=== PATIENT | female | born 1945 | race Caucasian/White ===

== ENCOUNTER → 2017-04-26 | Day surgery (SDC) | payer OTHER ==
[2017-04-21 08:59] VITALS: Ht 161.3 cm; Wt 85.0 kg
[~2017-04-26] VITALS: Ht 161.3 cm; Wt 85.0 kg
[~2017-04-26] MED LIST: 500ML BSS 0.3ML EPI 1:1000PF IRRIG ONE; ACETAMINOPHEN 325 MG TAB PO PRN; AMIT25TA9 PO; AMVISC PLUS 0.8ML SYRINGE INT OCU ONE; ATOR-24 PO; BRIMONIDINE TART 0.2% OP SOLN PER DROP CHARGE ONE; BSS FLUSH ONE; BUPR-79 PO; CLB/200 PO; ENDOCOAT 0.85ML SYRINGE INT OCU ONE; EpINEphrine INJ 1MG/ML AMP 1 MG/ML AMP ONE; LACTATED RINGER'S 1000ML 500 ML IV SCH; LIDOCAINE 4% OP SOLN DROP CHARGE ONE; LIDOCAINE 4% OP SOLN DROP CHARGE OPL SCH; LIDOCAINE HCL 1% MPF 2 ML VIAL ONE; LISI10TA PO; MIDAZOLAM HCL 1 MG/ML 2ML VIAL ONE; MIX: 3ML BSS AND 1ML EPI(PF) TOP ONE; MOXIFLOXACIN OPH SOLN PER DROP CHARGE ONE; MULT-506 PO; PANT40TA PO; POVIDONE-IODINE OP SOLN 30 ML BTL ONE; PROPARACAINE 0.5% OP SOLN PER DROP CHARGE OPL SCH; TOBRAMYCIN/DEXAMETHASONE OPH OINT PER APPLN CHARGE ONE; TRAM-10 PO
[2017-04-26] MEDS: PHENYLEPHRINE HCL 2.5% OP SOLN PER DROP CHARGE OPL SCH ×2 (10:43→10:47)
[2017-04-26] MEDS: TROPICAMIDE 1% OP SOLN PER DROP CHARGE OPL SCH ×2 (10:44→10:49)
[2017-04-26] MEDS: KETOROLAC 0.5% OP SOLN PER DROP CHARGE OPL SCH ×2 (10:45→10:50)
[2017-04-26] MEDS: CYCLOPENTOLATE HCL 1% OP SOLN PER DROP CHARGE OPL SCH ×2 (10:45→10:50)
[2017-04-26] MEDS: MOXIFLOXACIN OPH SOLN PER DROP CHARGE OPL SCH ×2 (10:46→10:51)
--- NOTE | 2017-04-26 11:50 | History & Physical Bridge - SC ---
H&P Re-Evaluation Bridge Note: I have examined the patient, reviewed the History & Physical and in the interval since the performance of the History & Physical I have noted the following changes of clinical significance: No changes noted
--- NOTE | 2017-04-26 12:13 | Discharge Instructions-SurgCtr ---
Discharge Instructions Date of Service Apr 26, 2017. Visit Reason for Visit: Cataract Left Eye Discharge Discharge Diagnosis / Problem: cataract left eye Discharge Goals Goal(s): Improve function Activity Recommendations Activity Limitations: per Instructions/Follow-up section Lifting Limitations: no more than 5 pounds Anesthesia . Post Anesthesia Instructions: If you have had General Anesthesia or IV Sedation: * Do not drive today. * Resume driving when surgeon permits. * Do not make important decisions or sign legal documents today. * Call surgeon for: 1. Temperature elevations greater than 101 degrees F. 2. Uncontrollable pain. 3. Excessive bleeding. 4. Persistent nausea and vomiting. 5. Medication intolerance (nausea, vomiting or rash). * For nausea and vomiting use only clear liquids such as: tea, soda, bouillon until nausea subsides, then gradually increase diet as tolerated. * If you have any concerns or questions, call your surgeon's office. If physician is unavailable and it is an emergency, call 911 or go to the nearest emergency room. . Instructions / Follow-Up Instructions / Follow-Up ACTIVITY RECOMMENDATIONS: * Light activities * You may walk outside, read, watch television. * Mild irritation and blurred vision are common for the first few days, redness around the white part of the eye is common. MEDICATIONS: Resume previous medications unless instructed otherwise by your surgeon. Eye drops (today and tomorrow): Moxifloxacin - one drop in operative eye every 2 hours while awake Prednisolone 1% - one drop in operative eye every 2 hours while awake Ilevro - one drop operative eye 1 times daily SPECIAL CARE INSTRUCTIONS: * If any problems or concerns, please call Dr. Mckeon's office at . * Keep plastic shield taped over eye to sleep at night. * Keep plastic shield taped over eye except to administer eye drops. * Keep plastic shield on until office visit the following day. FOLLOW UP VISIT: Follow-up with Dr. Mckeon in the [place] office as scheduled. If not already scheduled, please call the office at . Diet Recommendations Home Diet: resume previous diet Procedures Procedures Performed: Left Cataract Phacoemulsification With Intraocular Lens Implant Pending Studies Studies pending at discharge: no Medical Emergencies . Who to Call and When: Medical Emergencies: If at any time you feel your situation is an emergency, please call 911 immediately. . Non-Emergent Contact Non-Emergency issues call your: [facility] [employer] . . "Provider Documentation" section prepared by Sergo Mckeon. .
[2017-04-26 12:15] VITALS: TEMP 36.6
--- NOTE | 2017-04-26 12:15 | [facility] Operative Report ---
Operative Report Operative Date Apr 26, 2017. Pre-Operative Diagnosis Cataract left eye Post-Operative Diagnosis Same as pre-op Procedure(s) Performed Left Cataract Phacoemulsification With Intraocular Lens Implant Surgeon Tapeman Surgeon(s) None Estimated Blood Loss Zero Findings cataract left eye Fluids (cc crystalloids) see anesthesia record Specimens None Drains none Anesthesia local with sedation Complication(s) None Disposition Recovery Room / PACU Implants [id number] 24.0 Indications decreased vision left eye Description of Procedure After informed consent was obtained in the holding area the patient was wheeled back to the operating room where cardiac monitoring leads and oxygen by nasal cannula was administered by Anesthesia. Gentle IV sedation was given, and the patient's left eye was prepped and draped in usual sterile fashion. A wire lid speculum was placed into the left eye and the operating microscope was swung into position. Using 0.12 forceps and a Supersharp blade a paracentesis port was made 2 o'clock hours away from the 3 o'clock position of the patient's left eye. 1% non-preserved Lidocaine was then injected into the anterior chamber for anesthesia. A mixture of 1ml nonpreserved epi in 3 ml of BSS was injected to aid with pupillary dilation. A 2.0 mm keratotome blade was then used to make a shelved clear corneal incision at the 3 o'clock position of the left eye. Amvisc was injected into the anterior chamber and a cystotome and Utrata forceps were used to perform a curvilinear capsulorrhexis. BSS on a hydrodissection cannula was used to hydrodissect the lens nucleus away from the capsular bag. The phacoemulsification handpiece was then used in a stop and chop fashion to remove the lens nucleus. The irrigation and aspiration handpiece was then used to remove the residual cortical material. Amvisc was injected into the capsular bag and anterior chamber and a [employer] MX60 24.0 Diopter intraocular lens was injected into the capsular bag. Irrigation and aspiration handpiece was used to remove the residual viscoelastic material. The wounds were hydrated and noted to be watertight. The wire lid speculum was removed from the eye. Vigamox, Brimonidine, and TobraDex ointment were placed on the eye and it was shielded. It should be noted that EndoCoat was used extensively during the case to protect the cornea endothelium. DISPOSITION: The patient tolerated the procedure well and was wheeled to the post anesthesia care unit in stable condition. I attest to the content of the Intraoperative Record and any orders documented therein. Any exceptions are noted below. I attest to the content of the Intraoperative Record and any orders documented therein. Any exceptions are noted below.
--- NOTE | 2017-04-26 12:33 | Anesthesia Progress Nt - [facility] ---
Anesthesia Post Op Note Date & Time Apr 26, 2017 at 12:33 Vital Signs Pain Intensity: 0 Vital Signs Past 12 Hours Date Time Temp Pulse Resp B/P (MAP) Pulse Ox O2 Delivery O2 Flow Rate FiO2 04/26/17 12:15 36.6 78 16 159/81 (107) 98 Room Air 04/26/17 10:38 36.5 80 22 145/91 (109) 96 Room Air Notes Mental Status: alert / awake / arousable, participated in evaluation Pt Amnestic to Procedure: Yes Nausea / Vomiting: adequately controlled Pain: adequately controlled Airway Patency, RR, SpO2: stable & adequate BP & HR: stable & adequate Hydration State: stable & adequate Anesthetic Complications: no major complications apparent
[2017-04-26 12:37] VITALS: BP 135/79; PULSE 71; O2SAT 95
== END | disposition home or self-care (01) ==
LOC: X.SURG 10:31
PROVIDERS: ATTEND Ophthalmology
DX: H25.12 Age-related nuclear cataract, left eye (principal); I10 Essential (primary) hypertension; L40.9 Psoriasis, unspecified; E07.9 Disorder of thyroid, unspecified

== ENCOUNTER 2020-08-08 04:19 | Inpatient (IN) ==
--- OUTSIDE RECORDS SUMMARY | 2020-08-08 04:22 | External Medical Summary | Continuity of Care Document ---
:1945 Author Name Indu Butts, Provider Address Unavailable Unavailable , Care Team Providers Name Role Phone Raz [email or web address] [email or web address] Unavailable Unavailable Unavailable Unavailable Unavailable Problems Psoriasis (696.1) (L40.9) Nonalcoholic fatty liver disease (571.8) (K76.0) Actinic keratosis (702.0) (L57.0) Plantar fasciitis (728.71) (M72.2) Arthritis (716.90) (M19.90) Allergies and Adverse Reactions No Known Allergies (Allergy) Medications Simvastatin 40 MG Oral Tablet Refills: 0 Metoprolol Tartrate 25 MG Oral Tablet Refills: 0 Pantoprazole Sodium 40 MG Intravenous Solution Reconstituted Refills: 0 Flonase 50 MCG/ACT SUSP Refills: 0 Aspirin 81 81 MG Oral Tablet Delayed Release Refills: 0 buPROPion HCl ER (SR) 150 MG Oral Tablet Extended Release 12 Hour Refills: 0 CeleBREX 200 MG Oral Capsule; TAKE 1 CAPSULE DAILY. Refills: 0 Lisinopril 5 MG Oral Tablet; TAKE 1 TABLET DAILY. Refills: 0 Clobetasol Propionate 0.05 % External So lution; APPLY AND GENTLY MASSAGE INTO AFFECTED AREA(S) TWICE DAILY. Beckie Mackay Start: 26-Feb-2014 Quantity: 1 50 ML Bottle Refills: 2 Procedures Procedures not documented Immunizations Immunizations not documented Plan of Treatment Planned Observations Planned Goals not documented Results No Known Results Results not documented
[2020-08-08 04:58] LABS: Basophils # (auto) 0.03 K/uL (0-0.2); Basophils % (auto) 0.4 %; Eosinophils # (auto) 0.27 K/uL (0-0.5); Eosinophils % (auto) 3.7 %; Hematocrit (blood only) 37.1 % (37-47); Hemoglobin 12.9 g/dL (12.0-16.0); Immature Granulocytes # (auto) 0.01 K/uL (0.00-0.02); Immature Granulocytes % (auto) 0.1 %; Lymphocytes # (auto) 1.64 K/uL (1.2-3.4); Lymphocytes % (auto) 22.7 %; Mean Corpuscular Hemoglobin 32.7 pg (25-34); Mean Corpuscular Hgb Conc 34.8 g/dL (32-36); Mean Corpuscular Volume 93.9 fL (80-100); Mean Platelet Volume 10.5 fL (7.4-10.4); Monocytes # (auto) 0.87 K/uL (0.11-0.59); Monocytes % (auto) 12.1 %; Neutrophils # (auto) 4.39 K/uL (1.4-6.5); Platelet Count 145 K/uL (130-400); RDW Coefficient of Variation 13.4 % (11.5-14.5); RDW Standard Deviation 46.3 fL (36.4-46.3); Red Blood Count 3.95 M/uL (4.2-5.4); White Blood Count 7.21 K/uL (4.8-10.8)
[2020-08-08 05:11] LABS: Alanine Aminotransferase 39 U/L (12-78); Albumin Level 3.6 gm/dl (3.4-5.0); Aspartate Aminotransferase 33 U/L (15-37); BUN Creatinine Ratio 19.1 (10-20); Blood Urea Nitrogen 20 mg/dl (7-18); Calcium 8.8 mg/dl (8.5-10.1); Carbon Dioxide 29 mmol/L (21-32); Chloride 106 mmol/L (98-107); Creatinine Clr Calc Pharmacy 47.2 ml/min; Est GFR (African American) 58.4; Est GFR (Non-African American) 50.4; Glucose 141 mg/dl (70-99); Lipase 174 U/L (73-393); Sodium 140 mmol/L (136-145)
[2020-08-08 05:16] LABS: Albumin Globulin Ratio 0.9 (0.9-2); Alkaline Phosphatase 85 U/L (45-117); Bilirubin,Total 0.6 mg/dl (0.2-1); Globulin 4.2 gm/dl (2.5-4.0); Total Protein 7.8 gm/dl (6.4-8.2); Troponin I < 0.015 ng/ml (0-0.045)
--- NOTE | 2020-08-08 05:17 | Emergency Department Note ---
Impression & Plan Partial small bowel obstruction ED Provider Note NAME: DANILO CHAVIRA AGE: 74 SEX: F ARRIVES VIA: Ambulance INFORMANT: Patient ED PROVIDER(S): Nasrin Green DO CHIEF COMPLAINT: Epigastric pain PLAN: Disposition: Admitted to the [facility] Condition: Stable MEDICAL DECISION MAKING: This is a 74-year-old female patient with epigastric pain that woke her from sleep at 1:30 AM. Patient received IV morphine and Zofran from EMS with significant relief of her symptoms. CT scan of the abdomen/pelvis shows partial small bowel obstruction. The patient received additional morphine and Zofran here in the emergency department which helped with her symptoms. [facility]. Triage Nursing notes reviewed and agree with them. Additional history obtained from EMS Prior medical records reviewed Vital Signs: reviewed and remarkable for hypertension Differential diagnosis: Pancreatitis, small bowel obstruction, diverticulitis, colitis, renal colic ER treatment provided: IV normal saline IV morphine IV Zofran Diagnostics interpreted by me: ECG: Normal sinus rhythm at a rate of 76 with T wave inversions in lead I and aVL. There is no ST segment elevation or signs of ischemia. This is unchanged from June 2015 Cardiac Monitoring: Normal sinus rhythm at 77 Laboratory studies: See below Imaging studies: As per stat rad CT scan abdomen/pelvis: 7 mm left lower lobe nodule is seen. Cholecystectomy. Mildly dilated small bowel loops seen in the pelvis, suggestive of a partial dis madison small bowel obstruction with transition point in the right pelvis. Fatty liver. Small hiatal hernia. L3/4 grade 1 spondylolisthesis. HPI: 74/F arrives for evaluation of epigastric abdominal pain. The patient awoke at 1:30 AM with significant epigastric abdominal pain that radiated through to her mid back and lower abdomen. Patient rated the pain as an 8/10 and called EMS. EMS administered 4 mg of morphine and 4 mg of Zofran which did give her some relief of the abdominal discomfort and nausea that she was experi encing. Patient states that she has never had pain like this in the past. She states that the pain was so severe that she became clammy and near syncopal. Patient denies any diarrhea. ROS: See above HPI for pertinent positives & negatives. A total of 10 systems reviewed and were otherwise negative. PAST MEDICAL HISTORY:Hypertension PAST SURGICAL HISTORY:Cholecystectomy, hysterectomy, surgical removal of the umbilicus FAMILY HISTORY:See Below SOCIAL HISTORY:See Below HOME MEDICATIONS:See Below ALLERGIES:See Below VITALS:See Below PHYSICAL EXAMINATION: HEENT: Head - normocephalic and atraumatic Pupils are equal, round, and reactive to light. Extraocular eye muscles are intact, and sclera are anicteric. Nose - moist nasal mucosa without discharge. Mouth - moist buccal mucosa. Oropharynx is nonerythematous and there is no tonsillar exudate or mirtha ma noted. Neck: Supple; no cervical lymphadenopathy or thyromegaly Heart: Regular rate and rhythm. There is a normal S1 and S2 with no murmurs, clicks, or gallops appreciated. Lungs: Clear to auscultation bilaterally with no wheezes, rales, or rhonchi. Abdomen: Soft, diffusely tender with palpation. There is a fullness in the left lower quadrant of the abdomen. There is hyperactive bowel sounds. Extremities: No evidence of cyanosis, clubbing, or edema. There are easily palpable peripheral pulses. Skin: warm and dry with good turgor and no rashes. ED COURSE: Times/Reassessments: 0435: Patient was evaluated in room C10. A complete history and physical was performed. Previous electronic medical records were reviewed. An order was placed for continuous cardiac monitoring. The patient was in a normal sinus rhythm at a rate of 77. An IV lock was initiated and labs were drawn as above. Patient will go for CT scan of the abdomen/pelvis. [id number]: I reevaluated the patient at this time. She was having increased pain. She was given an additional dose of IV morphine and IV Zofran for pain. I reviewed the results of the laboratory studies and CT scan with the patient. I discussed the case with the [facility] hospitalist and they will evaluate for further inpatient care. 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 Beliefs That Will Affect Care: None Current Living Situation: Spouse Other Information That Helps Us Care for You: No Feels Safe at Home: Yes Safety Concerns: Feels Safe At This Time Assistive Devices: Cane, Glasses and Walker Allergies Allergies Allergy/AdvReac Type Severity Reaction Status Date / Time indomethacin Allergy Mild rash Verified 08/08/20 05:26 meclizine Allergy Mild RASH Verified 08/08/20 05:26 naproxen Allergy Mild RASH Verified 08/08/20 05:26 Penicillins AdvReac Mild RASH Verified 08/08/20 05:26 Home Meds Home Medications Medication Instructions Recorded Confirmed adalimumab [Humira Pen] 40 mg SUBCUT .Q2WK 08/08/20 08/08/20 amitriptyline 25 mg PO HS 08/08/20 08/08/20 atorvastatin 80 mg PO QPM 08/08/20 08/08/20 bupropion HCl 150 mg PO BID 08/08/20 08/08/20 lisinopril 20 mg PO QAM 08/08/20 08/08/20 multivitamin 1 tab PO QAM 08/08/20 08/08/20 pantoprazole 40 mg PO BID 08/08/20 08/08/20 pramipexole 0.5 mg PO HS 08/08/20 08/08/20 tizanidine 4 mg PO DIRECTED PRN 08/08/20 08/08/20 tramadol 50 mg PO BID 08/08/20 08/08/20 Results & Data (ED) Vital Signs Vital Signs - 24 hr 08/08/20 04:22 08/08/20 04:25 08/08/20 04:27 Temperature 36.8 C Temperature Source Oral Pulse Rate 78 77 77 Pulse Rate [Right Finger] Pulse Rate from SpO2 Sensor 79 77 Respiratory Rate 18 20 16 Respiratory Depth Normal Blood Pressure 157/71 H 157/71 H Blood Pressure [Right Arm] Blood Pressure Mean 99 99 Blood Pressure Mean [Right Arm] Blood Pressure Position Sitting Blood Pressure Position [Right Arm] Pulse Oximetry 94 94 95 Oxygen Delivery Method Room Air Sepsis Recent Fever Within 48 Hours No Sepsis New/Unexplained Change in Mental Status No Sepsis Action Taken by Nursing No Action Required 08/08/20 04:30 08/08/20 04:31 08/08/20 04:55 Temperature Temperature Source Pulse Rate 77 78 Pulse Rate [Right Finger] Pulse Rate from SpO2 Sensor 75 77 Respiratory Rate 18 18 Respiratory Depth Blood Pressure 147/75 H Blood Pressure [Right Arm] Blood Pressure Mean 99 Blood Pressure Mean [Right Arm] Blood Pressure Position Blood Pressure Position [Right Arm] Pulse Oximetry 90 90 95 Oxygen Delivery Method Room Air Sepsis Recent Fever Within 48 Hours Sepsis New/Unexplained Change in Mental Status Sepsis Action Taken by Nursing 08/08/20 05:00 08/08/20 05:01 08/08/20 05:30 Temperature Temperature Source Pulse Rate 79 79 76 Pulse Rate [Right Finger] Pulse Rate from SpO2 Sensor 72 77 76 Respiratory Rate 18 19 20 Respiratory Depth Blood Pressure 151/79 H Blood Pressure [Right Arm] Blood Pressure Mean 103 Blood Pressure Mean [Right Arm] Blood Pressure Position Blood Pressure Position [Right Arm] Pulse Oximetry 93 90 93 Oxygen Delivery Method Sepsis Recent Fever Within 48 Hours Sepsis New/Unexplained Change in Mental Status Sepsis Action Taken by Nursing 08/08/20 05:34 08/08/20 05:49 08/08/20 06:00 Temperature Temperature Source Pulse Rate 79 82 Pulse Rate [Right Finger] 82 Pulse Rate from SpO2 Sensor 80 82 Respiratory Rate 17 16 16 Respiratory Depth Normal Blood Pressure 145/73 H 144/64 H Blood Pressure [Right Arm] 132/75 Blood Pressure Mean 97 90 Blood Pressure Mean [Right Arm] 94 Blood Pressure Position Blood Pressure Position [Right Arm] Lying Pulse Oximetry 93 94 91 Oxygen Delivery Method Room Air Sepsis Recent Fever Within 48 Hours Sepsis New/Unexplained Change in Mental Status Sepsis Action Taken by Nursing 08/08/20 06:01 08/08/20 06:30 08/08/20 06:31 Temperature Temperature Source Pulse Rate 83 76 79 Pulse Rate [Right Finger] Pulse Rate from SpO2 Sensor 83 76 72 Respiratory Rate 15 15 15 Respiratory Depth Blood Pressure 152/70 H Blood Pressure [Right Arm] Blood Pressure Mean 97 Blood Pressure Mean [Right Arm] Blood Pressure Position Blood Pressure Position [Right Arm] Pulse Oximetry 92 92 91 Oxygen Delivery Method Sepsis Recent Fever Within 48 Hours Sepsis New/Unexplained Change in Mental Status Sepsis Action Taken by Nursing Laboratory Data Result diagrams: 08/08/20 03:52 08/08/20 03:52 Lab Results 08/08/20 08/08/20 Range/Units 03:52 03:52 WBC 7.21 (4.8-10.8) K/uL RBC 3.95 L (4.2-5.4) M/uL Hgb 12.9 (12.0-16.0) g/dL Hct 37.1 (37-47) % MCV 93.9 (80-100) fL MCH 32.7 (25-34) pg MCHC 34.8 (32-36) g/dL RDW Std Deviation 46.3 (36.4-46.3) fL RDW Coeff of Luzma 13.4 (11.5-14.5) % Plt Count 145 (130-400) K/uL MPV 10.5 H (7.4-10.4) fL Immature Gran % (Auto) 0.1 % Neut % (Auto) 61.0 % Lymph % (Auto) 22.7 % Power % (Auto) 12.1 % Eos % (Auto) 3.7 % Baso % (Auto) 0.4 % Neut # (Auto) 4.39 (1.4-6.5) K/uL Lymph # (Auto) 1.64 (1.2-3.4) K/uL Power # (Auto) 0.87 H (0.11-0.59) K/uL Eos # (Auto) 0.27 (0-0.5) K/uL Baso # (Auto) 0.03 (0-0.2) K/uL Immature Gran # (Auto) 0.01 (0.00-0.02) K/uL Sodium 140 (136-145) mmol/L Potassium 4.0 (3.5-5.1) mmol/L Chloride 106 (98-107) mmol/L Carbon Dioxide 29 (21-32) mmol/L Anion Gap 5.0 (3-11) BUN 20 H (7-18) mg/dl Creatinine 1.07 (0.6-1.2) mg/dl Est Cr Clr Drug Dosing 47.2 ml/min Est GFR ( Amer) 58.4 Est GFR (Non-Af Amer) 50.4 BUN/Creatinine Ratio 19.1 (10-20) Glucose 141 H (70-99) mg/dl Calcium 8.8 (8.5-10.1) mg/dl Total Bilirubin 0.6 (0.2-1) mg/dl AST 33 (15-37) U/L ALT 39 (12-78) U/L Alkaline Phosphatase 85 (45-117) U/L Troponin I < 0.015 (0-0.045) ng/ml Total Protein 7.8 (6.4-8.2) gm/dl Albumin 3.6 (3.4-5.0) gm/dl Globulin 4.2 H (2.5-4.0) gm/dl Albumin/Globulin Ratio 0.9 (0.9-2) Lipase 174 (73-393) U/L Administered Medications Bupropion HCl (Bupropion Sr 150 Mg Tabcr) 150 mg PO BID ESTEPHANIE Stop: 09/07/20 10:16 Last Admin: 08/08/20 11:46 Dose: 150 mg Documented by: [id number] Hydromorphone HCl (Hydromorphone Inj 0.5 Mg/0.5 Ml Syr) 0.5 mg IV Q3H PRN PRN Reason: Pain Stop: 08/22/20 10:16 Last Admin: 08/08/20 18:26 Dose: 0.5 mg Documented by: [id number] Admin: 08/08/20 12:42 Dose: 0.5 mg Documented by: [id number] Dextrose/Sodium Chloride (D5w And Nss) 1,000 mls @ 125 mls/hr IV .Q8H ESTEPHANIE Stop: 09/07/20 10:16 Last Admin: 08/08/20 11:44 Dose: 125 mls/hr Documented by: [id number] Insulin Aspart (Insulin Aspart 100 Units/Ml 3 Ml Pen) 0 units SC Q6 ESTEPHANIE Stop: 09/07/20 11:59 Last Admin: 08/08/20 18:37 Dose: Not Given Documented by: [id number] Cosigned by: [id number] Admin: 08/08/20 13:07 Dose: Not Given Documented by: [id number] Cosigned by: [id number] Lisinopril (Lisinopril 20 Mg Tab) 20 mg PO QAM ESTEPHANIE Stop: 09/07/20 10:16 Last Admin: 08/08/20 11:45 Dose: 20 mg Documented by: [id number] Pantoprazole Sodium (Pantoprazole 40 Mg Tab) 40 mg PO BID ESTEPHANIE Stop: 09/07/20 10:16 Last Admin: 08/08/20 11:46 Dose: 40 mg Documented by: [id number] Tramadol HCl (Tramadol Hcl 50 Mg Tablet) 50 mg PO BID ESTEPHANIE Stop: 09/07/20 10:16 Last Admin: 08/08/20 11:46 Dose: 50 mg Documented by: [id number] Discontinued Medications Hydromorphone HCl (Hydromorphone Inj 0.5 Mg/0.5 Ml Syr) Confirm Administered Dose 0.5 mg .ROUTE .STK-MED ONE Stop: 08/08/20 08:29 Last Admin: 08/08/20 08:29 Dose: 0.5 mg Documented by: [id number] Sodium Chloride (Nss) 500 mls @ 999 mls/hr IV .Q31M ONE Stop: 08/08/20 05:53 Last Infusion: 08/08/20 06:43 Dose: 0 mls/hr Documented by: [id number] Admin: 08/08/20 05:49 Dose: 999 mls/hr Documented by: [id number] Ioversol (Ioversol 100ml) 100 ml IV ONCE ONE Stop: 08/08/20 05:50 Last Admin: 08/08/20 05:49 Dose: 93 ml Documented by: [id number] Morphine Sulfate (Morphine Sulfate 4 Mg/Ml 1 Ml Carp\Vial) 4 mg IV NOW STA Stop: 08/08/20 05:22 Last Admin: 08/08/20 05:33 Dose: 4 mg Documented by: [id number] Discharge Plan Visit Data Chief Complaint: Abdominal Pain Stated Complaint: EPIGASTRIC PAIN ED Provider: Nasrin Green Discharge Problem: Partial small bowel obstruction Patient Disposition: Admitted As Inpatient Discharge Instructions Interventions: ED Discharge Assessment Last Done: 08/08/20 09:59
[2020-08-08] MEDS ORDERED: MoRPHine SULFATE 4 MG/ML 1 ML CARP\\VIAL IV STA (05:21)
[2020-08-08] MEDS ORDERED: SODIUM CHLORIDE 0.9% 500 ML IV ONE (05:23)
[2020-08-08] MEDS ORDERED: OPTIRAY 320 100ml IV ONE (05:49)
--- NOTE | 2020-08-08 06:45 | CT Scan Report ---
CT OF THE ABDOMEN AND PELVIS WITH CONTRAST CLINICAL HISTORY: Abdominal pain. Evaluate for small bowel obstruction vs. diverticulitis. COMPARISON STUDY: CT of the abdomen and pelvis April 14, 2016. TECHNIQUE: Following IV administration of 93 mL of Optiray-320, axial images of the abdomen and pelvi s were obtained from the lung bases to the proximal femurs. Images were reviewed in the axial, sagitt al, and coronal planes. IV contrast was administered without complication. Automated exposure contro l was utilized for the study. A dose lowering technique was utilized adhering to the principles of A EMIR. CT DOSE: 787.70 mGy.cm FINDINGS: Several pulmonary nodules within the lower lungs are unchanged and CT of April 14, 2016. These are benign given stability. There is a small hiatal hernia. Hepatic steatosis is noted. Mild b iliary ductal dilatation is likely related to cholecystectomy. There are no hepatic lesions. The sple en, adrenal glands are unremarkable. There is no pancreatic ductal dilatation. A 7 mm cystic lesion w ithin the pancreatic tail favors a side branch IPMN. Bilateral renal parapelvic cysts are noted. A 2 cm lesion within the lower pole the right kidney measures above water attenuation. When correlating w ith prior unenhanced CT of April 14, 2016, this likely reflects a hyperdense cyst. The appendix is not visualized. There are several loops of mildly dilated fluid-filled small bowel within the abdome n. Transition point within the right lower quadrant is noted on image 323 of 481. Distal small bowel is decompressed. There is minimal associated mesenteric infiltration. Left hip arthroplasty is noted. No abdominal or pelvic lymphadenopathy is present. No acute fracture or suspicious lesion is identif ied within visualized skeletal structures. There is extensive aortic atherosclerotic plaque. No pneum atosis, free air or portal venous gas is present. IMPRESSION: 1. Multiple loops of mildly dilated small bowel with transition point within the right lower quadrant . The findings represent a partial small bowel obstruction. Minimal associated mesenteric infiltratio n. 2. Multiple additional findings, as described above. ACT 112: Negative or not required by law. Electronically signed by: Moses Hinton M.D. 08/08/2020 6:44 AM
[2020-08-08 07:06] LABS: Appearance Urine Cloudy (Clear); Bacteria Urine Automated Negative (Negative); Bilirubin Urine Negative (Negative); Blood Urine Negative (Negative); Color Urine Yellow; Epithelial Cell Urine Auto >30 /lpf (0-5); Glucose Urine UA Negative (Negative); Ketones Urine Negative (Negative); Leukocyte Esterase Urine 2+ (Negative); Nitrite Urine Negative (Negative); Protein Urine Negative (Negative); RBC Urine Automated 0-4 /hpf (0-4); Specific Gravity Urine > 1.045 (1.000-1.030); Urobilinogen Urine Negative (Negative); WBC Urine Automated >30 /hpf (0-5)
--- NOTE | 2020-08-08 08:19 | History and Physical Report ---
DATE OF ADMISSION: 08/08/2020 CHIEF COMPLAINT: Abdominal pain. HISTORY OF PRESENT ILLNESS: This is a 74-year-old female with past medical history significant for hyperlipidemia, chronic gout, prediabetes, seasonal allergies, obstructive sleep apnea, hypertension, fibromyalgia, restless legs syndrome, psoriasis, psoriatic arthropathy, history of peptic ulcer, history of Manzo's esophagus, depression, who presents from home with abdominal pain. The patient woke up around 1:30 a.m. with abdominal pain about 8/10 in severity, pain in the epigastric area radiating to the lower abdomen. No nausea, no vomiting. Last bowel movement was last Wednesday. Not passing much gas. Denies any chest pain, no shortness of breath. Has chronic dry cough, chronic runny nose. No sore throat, no dysphagia, no headache, no blurred vision, no fevers. She has complaints of pain in her left knee. She had left total knee arthroplasty done about 6 months ago and she also has pain in the right knee and supposed to get surgery in that knee and she ambulates with a cane at home. Still complaining of abdominal pain about 6/10 in severity. No bowel obstructions in the past, had abdominal surgeries in the past. ALLERGIES: AMOXICILLIN, NAPROXEN, RANITIDINE. PAST MEDICAL HISTORY: As mentioned above. PAST SURGICAL HISTORY: Left total knee arthroplasty, left breast lesion excision, carpal tunnel surgery, colonoscopy, EGD with biopsy, external hemorrhoidectomy, bilateral knee arthroscopy, laparoscopic cholecystectomy, bone removed from the left wrist, complete hysterectomy, cataract surgery, tonsillectomy and adenoidectomy, right shoulder arthroscopy. MEDICATIONS: The patient is on Humira every 2 weeks, amitriptyline 25 mg p.o. at bedtime, atorvastatin 80 mg p.o. p.m., bupropion 150 mg p.o. b.i.d., lisinopril 20 mg p.o. a.m., multivitamins 1 tablet p.o. a.m., Protonix 40 mg p.o. b.i.d., pramipexole 0.5 mg p.o. at bedtime, Zanaflex 4 mg p.r.n., tramadol 50 mg p.o. b.i.d. FAMILY HISTORY: Significant for mother has cancer, father has heart disease, brother has Parkinson's, son has ulcerative colitis and anxiety disorder, sister has diabetes, gout, arthritis, heart disease. SOCIAL HISTORY: . No smoking, no alcohol, no drug use. REVIEW OF SYSTEMS: As per HPI. Rest of the review of systems negative. PHYSICAL EXAMINATION: GENERAL: The patient is of moderate built, not in acute distress. VITAL SIGNS: Temperature 36.8, pulse 82, respiratory rate 16, blood pressure 132/75, oxygen 94% on room air. HEENT: Pupils equal, round, and reactive to light. Oral mucosa dry. NECK: No JVD, no neck masses seen. CARDIOVASCULAR: S1, S2 heard, regular rate and rhythm, no murmur, no gallop. RESPIRATORY SYSTEM: Normal AP diameter. No accessory muscle use. No wheezing, no crackles. ABDOMEN: Soft, bowel sounds absent, mild distention, diffuse discomfort and guarding. No rigidity. CENTRAL NERVOUS SYSTEM: Cranial nerves II-XII grossly intact. Nonfocal. EXTREMITIES: No edema, no erythema. LABORATORY DATA: WBC 7.2, hemoglobin 12.9, hematocrit 37.1, platelets 145. Sodium 140, potassium 4, chloride 106, bicarbonate 29, BUN 20, creatinine 1, serum glucose 141, calcium 8.8, total bilirubin 0.6, AST 33, ALT 39, alkaline phosphatase 85, troponin I less than 0.015. Lipase 174. IMAGING DATA: CT of abdomen and pelvis with contrast shows multiple loops of mildly dilated small bowel with transition point within the right lower quadrant. These findings represent a partial small-bowel obstruction. Minimal associated mesenteric infiltration. ASSESSMENT AND PLAN: This is a 74-year-old female who presents with abdominal pain, found to have partial small-bowel obstruction. 1. Abdominal pain: Partial small-bowel obstruction, history of abdominal surgeries in the past. Will continue with n.p.o., IV fluids, IV antiemetics, and IV pain medicine p.r.n.If worsening abdominal pain or vomiting will place on NG tube. Consult surgery and monitor in the medical floor. 2. History of prediabetes: Follow hemoglobin A1c levels. 3. History of hypertension: We will give her lisinopril if able to take p.o. Will place on IV hydralazine p.r.n. 4. Hyperlipidemia: Continue statin. 5. History of Manzo's esophagus: On PPI. If not able to take p.o., will change it to IV. 6. History of psoriasis with psoriatic arthropathy: The patient is on Humira. 7. Restless legs syndrome: On pramipexole. 8. History of obstructive sleep apnea. 9. Deep venous thrombosis prophylaxis: Sequential compression devices for now. 10. Disposition: Closely monitor in the medical floor. Expect to discharge home and follow with family doctor. PT and OT prior to discharge. Social service to help with discharge planning. Level 1 full code, MTDD
[2020-08-08] MEDS ORDERED: HYDROmorphone INJ 0.5 MG/0.5 ML SYR ONE (08:28)
[2020-08-08] MEDS ORDERED: ACETAMINOPHEN 325 MG TAB PO PRN (10:17)
[2020-08-08] MEDS ORDERED: tiZANidine HCL 4 MG TABLET PO PRN (10:17)
[2020-08-08] MEDS ORDERED: DEXTROSE 50% 50 ML SYRINGE IV PRN (10:45)
[2020-08-08] MEDS ORDERED: GLUCOSE 40% GEL 15 GM TUBE PO PRN (10:45)
[2020-08-08] MEDS ORDERED: GLUCOSE 10 TABS/TUBE PO PRN (10:45)
[2020-08-08] MEDS ORDERED: CARBOHYDRATES FOR HYPOGLYCEMIA PO PRN (10:45)
[2020-08-08] MEDS ORDERED: GLUCAGON FOR INJ 1 MG VIAL IM PRN (10:45)
[2020-08-08] MEDS: D5W AND NSS 1,000 ML IV SCH ×2 (11:44→20:24)
[2020-08-08] MEDS: lisinopril 20 MG TAB PO SCH (11:45)
[2020-08-08] MEDS: traMADol HCL 50 MG TABLET PO SCH ×2 (11:46→20:24)
[2020-08-08] MEDS: PANTOprazole 40 MG TAB PO SCH ×2 (11:46→20:24)
[2020-08-08] MEDS: buPROPion SR 150 MG TABCR PO SCH ×2 (11:46→20:23)
[2020-08-08] MEDS: HYDROmorphone INJ 0.5 MG/0.5 ML SYR IV PRN ×2 (12:42→18:26)
--- NOTE | 2020-08-08 12:42 | Surgery Consultation ---
Date of Consultation August 08, 2020 Assessment & Plan (1) Partial small bowel obstruction: pt is a 74 year-old female who who was admitted to hospital for SBO, IMP: SBO, Plan, conservative treatment first, NPO, IV fluid, control pain, pt may need NG tube if pt vomiting,or more abdominal pain, no surgery indication now, but, pt may need surgery if pt develops severer abdominal pain, high WBC, or fever, or failure conservative treatment, pt understood, I answered all questions, KUB in morning, repeat labs in morning, will F/U Present on Admission?: Yes History of Present Illness Attending Physician: Tom Antonio MD CHIEF COMPLAINT: Abdominal pain. HISTORY OF PRESENT ILLNESS: This is a 74-year-old female with past medical history significant for hyperlipidemia, chronic gout, prediabetes, seasonal allergies, obstructive sleep apnea, hypertension, fibromyalgia, restless legs syndrome, psoriasis, psoriatic arthropathy, history of peptic ulcer, history of Manzo's esophagus, depression, who presents from home with abdominal pain. The patient woke up around 1:30 a.m. with abdominal pain about 8/10 in severity, pain in the epigastric area radiating to the lower abdomen. No nausea, no vomiting. Last bowel movement was last Wednesday. Not passing much gas. Denies any chest pain, no shortness of breath. Has chronic dry cough, chronic runny nose. No sore throat, no dysphagia, no headache, no blurred vision, no fevers. She has complaints of pain in her left knee. She had left total knee arthroplasty done about 6 months ago and she also has pain in the right knee and supposed to get surgery in that knee and she ambulates with a cane at home. Still complaining of abdominal pain about 6/10 in severity. No bowel obstructions in the past, had abdominal surgeries in the past. I ( Bj Wahl MD ) got a call for consult SBO, I reviewed pt's H/P, labs, CT scan with pt, pt feels better, lass abdominal pain, no nausea, no vomiting, last BM yesterday, no fever, ALLERGIES: AMOXICILLIN, NAPROXEN, RANITIDINE. PAST MEDICAL HISTORY: As mentioned above. PAST SURGICAL HISTORY: Left total knee arthroplasty, left breast lesion excision, carpal tunnel surgery, colonoscopy, EGD with biopsy, external hemorrhoidectomy, bilateral knee arthroscopy, laparoscopic cholecystectomy, bone removed from the left wrist, complete hysterectomy, cataract surgery, tonsillectomy and adenoidectomy, right shoulder arthroscopy. MEDICATIONS: The patient is on Humira every 2 weeks, amitriptyline 25 mg p.o. at bedtime, atorvastatin 80 mg p.o. p.m., bupropion 150 mg p.o. b.i.d., lisinopril 20 mg p.o. a.m., multivitamins 1 tablet p.o. a.m., Protonix 40 mg p.o. b.i.d., pramipexole 0.5 mg p.o. at bedtime, Zanaflex 4 mg p.r.n., tramadol 50 mg p.o. b.i.d. FAMILY HISTORY: Significant for mother has cancer, father has heart disease, brother has Parkinson's, son has ulcerative colitis and anxiety disorder, sister has diabetes, gout, arthritis, heart disease. SOCIAL HISTORY: . No smoking, no alcohol, no drug use. REVIEW OF SYSTEMS: As per HPI. Rest of the review of systems negative. Allergies Allergy/AdvReac Type Severity Reaction Status Date / Time indomethacin Allergy Mild rash Verified 08/08/20 05:26 meclizine Allergy Mild RASH Verified 08/08/20 05:26 naproxen Allergy Mild RASH Verified 08/08/20 05:26 Penicillins AdvReac Mild RASH Verified 08/08/20 05:26 Home Medications Medication Instructions Recorded Confirmed Type adalimumab [Humira Pen] 40 mg SUBCUT .Q2WK 08/08/20 08/08/20 History amitriptyline 25 mg PO HS 08/08/20 08/08/20 History atorvastatin 80 mg PO QPM 08/08/20 08/08/20 History bupropion HCl 150 mg PO BID 08/08/20 08/08/20 History lisinopril 20 mg PO QAM 08/08/20 08/08/20 History multivitamin 1 tab PO QAM 08/08/20 08/08/20 History pantoprazole 40 mg PO BID 08/08/20 08/08/20 History pramipexole 0.5 mg PO HS 08/08/20 08/08/20 History tizanidine 4 mg PO DIRECTED PRN 08/08/20 08/08/20 History tramadol 50 mg PO BID 08/08/20 08/08/20 History Patient History Social History Smoking Status: Never smoker Hx Alcohol Use: No Hx Substance Use: No Preferred Language: Romansh Communication Ability: Effective Panelboard Assembler Required: No Beliefs That Will Affect Care: None Current Living Situation: Spouse Other Information That Helps Us Care for You: No Feels Safe at Home: Yes Safety Concerns: Feels Safe At This Time Assistive Devices: Cane, Glasses and Walker Review of Systems Review of Systems: All systems reviewed & are unremarkable except as noted in HPI & below Constitutional: as per Subjective / HPI Eyes: as per Subjective / HPI Ear, Nose, Mouth, Throat: as per Subjective / HPI Respiratory: as per Subjective / HPI Cardiovascular: as per Subjective / HPI Additional Comments: HTN, Gastrointestinal: as per Subjective / HPI peptic ulcer Genitourinary: as per Subjective / HPI Musculoskeletal: as per Subjective / HPI Integumentary: as per Subjective / HPI Neurologic: as per Subjective / HPI Psychiatric: as per Subjective / HPI Endocrine: as per Subjective / HPI Hematologic / Lymphatic: as per Subjective / HPI Physical Exam Constitutional: WD/WN, vitals as above well developed and well nourished Eyes: PERRL, conjunctivae normal, anicteric sclerae ENMT: external ear and nose normal, oropharynx normal Neck: trachea midline, no thyromegaly Respiratory: normal respiratory effort, lungs clear to auscultation normal respiratory effort Cardiovascular: RRR, no murmur, no edema Rate/Rhythm: regular rate and regular rhythm Gastrointestinal (Abdomen): Percussion/Palpation: + abdomen tender and abdomen soft mild tenderness at right side abdomen, no rebound pain, no distend, BS + Musculoskeletal: no cyanosis or clubbing, extremities motor strength 5/5 Skin: no rashes, warm and dry Neurologic: awake Psychiatric: Orientation: alert and oriented x 3 Results & Data ([facility]) Vital Signs (Past 12 Hours) Vital Signs Temp Pulse Pulse Resp BP BP Pulse Ox 08/08/20 10:30 36.8 C 69 16 136/74 93 08/08/20 10:00 64 13 127/81 99 08/08/20 09:59 36.8 C 66 16 136/70 99 08/08/20 09:31 66 16 99 08/08/20 09:30 66 22 136/70 98 08/08/20 09:01 67 16 97 08/08/20 09:00 69 15 135/73 97 08/08/20 08:31 70 18 95 08/08/20 08:30 73 17 142/78 H 95 08/08/20 08:01 76 14 92 08/08/20 08:00 77 15 133/87 94 08/08/20 07:31 75 16 91 08/08/20 07:30 75 21 144/65 H 91 08/08/20 07:02 74 15 93 08/08/20 07:01 75 17 140/71 93 08/08/20 07:00 77 17 94 08/08/20 06:31 79 15 91 08/08/20 06:30 76 15 152/70 H 92 08/08/20 06:01 83 15 92 08/08/20 06:00 82 16 144/64 H 91 08/08/20 05:49 82 16 132/75 94 08/08/20 05:34 79 17 145/73 H 93 08/08/20 05:30 76 20 93 08/08/20 05:01 79 19 90 08/08/20 05:00 79 18 151/79 H 93 08/08/20 04:55 95 08/08/20 04:31 78 18 90 08/08/20 04:30 77 18 147/75 H 90 08/08/20 04:27 36.8 C 77 16 157/71 H 95 08/08/20 04:25 77 20 94 08/08/20 04:22 78 18 157/71 H 94 Laboratory Results Abnormal lab results 08/08/20 08/08/20 08/08/20 Range/Units 03:52 03:52 06:56 RBC 3.95 L (4.2-5.4) M/uL MPV 10.5 H (7.4-10.4) fL [place] # (Auto) 0.87 H (0.11-0.59) K/uL BUN 20 H (7-18) mg/dl Glucose 141 H (70-99) mg/dl Globulin 4.2 H (2.5-4.0) gm/dl Urine Appearance Cloudy A (Clear) Ur Specific [place] > 1.045 H (1.000-1.030) Ur Leukocyte Esterase 2+ H (Negative) Urine WBC (Auto) >30 H (0-5) /hpf U Epithel Cells (Auto) >30 H (0-5) /lpf SARS-CoV-2, RNA, NAAT (NEGATIVE) 08/08/20 Range/Units 08:24 RBC (4.2-5.4) M/uL MPV (7.4-10.4) fL [place] # (Auto) (0.11-0.59) K/uL BUN (7-18) mg/dl Glucose (70-99) mg/dl Globulin (2.5-4.0) gm/dl Urine Appearance (Clear) Ur Specific [place] (1.000-1.030) Ur Leukocyte Esterase (Negative) Urine WBC (Auto) (0-5) /hpf U Epithel Cells (Auto) (0-5) /lpf SARS-CoV-2, RNA, NAAT POSITIVE A* (NEGATIVE) Diagnostic Findings CT OF THE ABDOMEN AND PELVIS WITH CONTRAST CLINICAL HISTORY: Abdominal pain. Evaluate for small bowel obstruction vs. diverticulitis. COMPARISON STUDY: CT of the abdomen and pelvis April 14, 2016. TECHNIQUE: Following IV administration of 93 mL of Optiray-320, axial images of the abdomen and pelvis were obtained from the lung bases to the proximal femurs. Images were reviewed in the axial, sagittal, and coronal planes. IV contrast was administered without complication. Automated exposure control was utilized for the study. A dose lowering technique was utilized adhering to the principles of ALARA. CT DOSE: 787.70 mGy.cm FINDINGS: Several pulmonary nodules within the lower lungs are unchanged and CT of April 14, 2016. These are benign given stability. There is a small hiatal hernia. Hepatic steatosis is noted. Mild biliary ductal dilatation is likely related to cholecystectomy. There are no hepatic lesions. The spleen, adrenal glands are unremarkable. There is no pancreatic ductal dilatation. A 7 mm cystic lesion within the pancreatic tail favors a side branch IPMN. Bilateral renal parapelvic cysts are noted. A 2 cm lesion within the lower pole the right kidney measures above water attenuation. When correlating with prior unenhanced CT of April 14, 2016, this likely reflects a hyperdense cyst. The appendix is not visualized. There are several loops of mildly dilated fluid-filled small bowel within the abdomen. Transition point within the right lower quadrant is noted on image 323 of 481. Distal small bowel is decompressed. There is minimal associated mesenteric infiltration. Left hip arthroplasty is noted. No abdominal or pelvic lymphadenopathy is present. No acute fracture or suspicious lesion is identified within visualized skeletal structures. There is extensive aortic atherosclerotic plaque. No pneumatosis, free air or portal venous gas is present. IMPRESSION: 1. Multiple loops of mildly dilated small bowel with transition point within the right lower quadrant. The findings represent a partial small bowel obstruction. Minimal associated mesenteric infiltration. 2. Multiple additional findings, as described above.
[2020-08-08] MEDS: INSULIN ASPART 100 UNITS/ML 3 ML PEN SC SCH ×3 (13:07→23:52)
[2020-08-08] MEDS: PRAMIPEXOLE DIHYDROCHLO 0.5 MG TAB PO SCH (20:22)
[2020-08-08] MEDS: ATORVASTATIN 40 MG TAB PO SCH (20:23)
[2020-08-08] MEDS: AMITRIPTYLINE HCL 25 MG TAB PO SCH (20:23)
[2020-08-09] MEDS: HYDROmorphone INJ 0.5 MG/0.5 ML SYR IV PRN ×5 (00:06→22:44)
[2020-08-09] MEDS: D5W AND NSS 1,000 ML IV SCH ×3 (05:06→18:35)
--- NOTE | 2020-08-09 05:51 | Electrocardiogram Report ---
Test Reason : Blood Pressure : / mmHG Vent. Rate : 076 BPM Atrial Rate : 076 BPM P-R Int : 138 ms QRS Dur : 084 ms QT Int : 378 ms P-R-T Axes : -07 -11 095 degrees QTc Int : 425 ms Poor data quality, interpretation may be adversely affected Normal sinus rhythm T wave abnormality, consider lateral ischemia Abnormal ECG When compared with ECG of 09-JUL-2015 14:09, No significant change was found Confirmed by Jamaal Quintero ([id number]) on 08/09/2020 5:50:36 AM Referred By: REFERRED SELF Confirmed By:Jamaal Quintero
[2020-08-09 05:59] LABS: Basophils # (auto) 0.02 K/uL (0-0.2); Basophils % (auto) 0.2 %; Eosinophils # (auto) 0.26 K/uL (0-0.5); Eosinophils % (auto) 3.2 %; Hematocrit (blood only) 39.9 % (37-47); Hemoglobin 13.4 g/dL (12.0-16.0); Immature Granulocytes # (auto) 0.01 K/uL (0.00-0.02); Immature Granulocytes % (auto) 0.1 %; Lymphocytes # (auto) 1.86 K/uL (1.2-3.4); Lymphocytes % (auto) 22.7 %; Mean Corpuscular Hemoglobin 32.3 pg (25-34); Mean Corpuscular Hgb Conc 33.6 g/dL (32-36); Mean Corpuscular Volume 96.1 fL (80-100); Mean Platelet Volume 10.4 fL (7.4-10.4); Monocytes % (auto) 9.8 %; Neutrophils # (auto) 5.25 K/uL (1.4-6.5); Platelet Count 127 K/uL (130-400); RDW Coefficient of Variation 13.7 % (11.5-14.5); RDW Standard Deviation 47.8 fL (36.4-46.3); Red Blood Count 4.15 M/uL (4.2-5.4)
[2020-08-09] MEDS: INSULIN ASPART 100 UNITS/ML 3 ML PEN SC SCH ×3 (06:03→17:34)
[2020-08-09 06:34] LABS: Estimated Average Glucose 137 mg/dl; Hemoglobin A1C 6.4 % (4.5-5.6)
[2020-08-09 06:41] LABS: BUN Creatinine Ratio 15.7 (10-20); Calcium 8.6 mg/dl (8.5-10.1); Creatinine Clr Calc Pharmacy 55.7 ml/min; Est GFR (Non-African American) 61.3; Magnesium 1.8 mg/dl (1.8-2.4); Potassium 3.9 mmol/L (3.5-5.1)
--- NOTE | 2020-08-09 09:07 | XRay Report ---
KUB HISTORY: Small bowel obstruction. Follow-up. COMPARISON: Abdomen and pelvis CT 08/08/2020. FINDINGS: Mildly dilated gas-filled loops of small bowel are again seen within the abdomen. The stoma ch is also mildly distended. Prior cholecystectomy. The conus decompressed. Small bowel loops measure up to 3.3 cm in diameter. No renal calculi. No ureteral calculi. No pneumoperitoneum or pneumatosis . There is a left total hip arthroplasty. IMPRESSION: No change in the mild small bowel obstruction pattern. ACT 112: Negative or not required by law. Electronically signed by: Sushil Zambrano M.D. 08/09/2020 9:05 AM
[2020-08-09] MEDS: traMADol HCL 50 MG TABLET PO SCH ×2 (09:14→20:47)
[2020-08-09] MEDS: PANTOprazole 40 MG TAB PO SCH ×2 (09:15→20:42)
[2020-08-09] MEDS: lisinopril 20 MG TAB PO SCH (09:15)
[2020-08-09] MEDS: buPROPion SR 150 MG TABCR PO SCH ×2 (09:15→20:42)
--- NOTE | 2020-08-09 09:41 | Surgery Progress Note ---
Date of Service F/U SBO, pt is stable, some abdominal pain, with nausea, no vomiting this morning, no pass gas or BM, no fever, normal WBC, KUB- mild SBO, no change, August 09, 2020 Assessment & Plan (1) Partial small bowel obstruction: pt is a 74 year-old female who who was admitted to hospital for SBO, IMP: SBO, Plan, conservative treatment first, NPO, IV fluid, control pain, pt may need NG tube if pt vomiting,or more abdominal pain, no surgery indication now, but, pt may need surgery if pt develops severer abdominal pain, high WBC, or fever, or failure conservative treatment, pt understood, I answered all questions, KUB in morning, repeat labs in morning, will F/U 08/09/2020 9:41AM F/U SBO, not pass gas or BM yet, NG tube insertion, repeat labs and KUB in morning, territory sales professional surgeon will cover over weekend, Thanks, Admission and Anticipated Discharge Date Admission Date: August 08, 2020 Review of Systems Constitutional: as per Subjective / HPI Eyes: as per Subjective / HPI Ear, Nose, Mouth, Throat: as per Subjective / HPI Respiratory: as per Subjective / HPI Cardiovascular: as per Subjective / HPI Additional Comments: HTN, Gastrointestinal: as per Subjective / HPI peptic ulcer Genitourinary: as per Subjective / HPI Musculoskeletal: as per Subjective / HPI Integumentary: as per Subjective / HPI Neurologic: as per Subjective / HPI Psychiatric: as per Subjective / HPI Endocrine: as per Subjective / HPI Hematologic / Lymphatic: as per Subjective / HPI Physical Exam Constitutional: WD/WN, vitals as above well developed and well nourished Eyes: PERRL, conjunctivae normal, anicteric sclerae ENMT: external ear and nose normal, oropharynx normal Neck: trachea midline, no thyromegaly Respiratory: normal respiratory effort, lungs clear to auscultation normal respiratory effort Cardiovascular: RRR, no murmur, no edema Rate/Rhythm: regular rate and regular rhythm Gastrointestinal (Abdomen): Percussion/Palpation: + abdomen tender and abdomen soft mild tenderness periumbilical area, no rebound pain, BS +no distend Musculoskeletal: no cyanosis or clubbing, extremities motor strength 5/5 Skin: no rashes, warm and dry Neurologic: awake Psychiatric: Orientation: alert and oriented x 3 Results & Data ([facility]) Vital Signs (Past 12 Hours) Vital Signs Temp Pulse Resp BP Pulse Ox 08/09/20 09:20 94 08/09/20 08:04 36.4 C L 77 20 147/78 H 96 08/08/20 23:40 36.8 C 75 16 150/76 H 95 Laboratory Results Abnormal lab results 08/08/20 08/08/20 08/09/20 Range/Units 18:14 23:49 05:28 RBC 4.15 L (4.2-5.4) M/uL RDW Std Deviation 47.8 H (36.4-46.3) fL Plt Count 127 L (130-400) K/uL [place] # (Auto) 0.80 H (0.11-0.59) K/uL Glucose (70-99) mg/dl POC Glucose 133 H 158 H (70-99) mg/dl Hemoglobin A1c (4.5-5.6) % 08/09/20 08/09/20 08/09/20 Range/Units 05:28 05:28 05:59 RBC (4.2-5.4) M/uL RDW Std Deviation (36.4-46.3) fL Plt Count (130-400) K/uL [place] # (Auto) (0.11-0.59) K/uL Glucose 136 H (70-99) mg/dl POC Glucose 133 H (70-99) mg/dl Hemoglobin A1c 6.4 H (4.5-5.6) % Diagnostic Findings KUB HISTORY: Small bowel obstruction. Follow-up. COMPARISON: Abdomen and pelvis CT 08/08/2020. FINDINGS: Mildly dilated gas-filled loops of small bowel are again seen within the abdomen. The stomach is also mildly distended. Prior cholecystectomy. The conus decompressed. Small bowel loops measure up to 3.3 cm in diameter. No renal calculi. No ureteral calculi. No pneumoperitoneum or pneumatosis. There is a left total hip arthroplasty. IMPRESSION: No change in the mild small bowel obstruction pattern.
--- NOTE | 2020-08-09 15:48 | Hospitalist Progress Note ---
Date of Service August 09, 2020 Assessment & Plan (1) Partial small bowel obstruction: Has history of cholecystectomy and hysterectomy No history of SBO before Admitted with abdominal pain and nausea noted to have small bowel obstruction on CAT scan Has been kept on n.p.o., IV fluids and pain medications Appreciate surgery input and recommendation She has now NG tube placement for decompression (2) COVID-19 virus infection: Is a status post first dose of Covid vaccine recently Noted to be Covid positive but does not have any symptoms Saturating normally on room air We will get a chest x-ray tomorrow (3) Hypertension: Remains on the upper side of normal (4) Manzo's esophagus: Continue PPI (5) Obstructive sleep apnea: No acute symptoms (6) Restless leg syndrome: Continue current medication DVT prophylaxis We will start subcu heparin Admission and Anticipated Discharge Date Admission Date: August 08, 2020 Subjective 08/09/2020 The patient was seen and examined in medical floor She was admitted yesterday with SBO and COVID-19 virus infection without any significant respiratory symptoms She required NG tube placement by surgery this morning Complains of abdominal pain without any nausea and/or vomiting Review of Systems Review of Systems: All systems reviewed and are unremarkable except as noted below Gastrointestinal: + abdominal pain and + bloating; no nausea and no vomiting Physical Exam Physical Exam: Lying in bed comfortably Constitutional: well developed, well nourished and + ill appearing Eyes: PERRL, conjunctivae normal, anicteric sclerae ENMT: external ear and nose normal, oropharynx normal Neck: trachea midline, no thyromegaly Respiratory: no respiratory distress Auscultation: lungs clear to auscultation bilaterally Musculoskeletal: No acute arthritis in any joint Neurologic: Alert, awake and oriented x3 Psychiatric: A+Ox3, euthymic affect Lymphatic: no cervical or axillary lymphadenopathy Results & Data Results & Data ([facility]) Vital Signs (Past 12 Hours) Vital Signs Temp Pulse Resp BP Pulse Ox 08/09/20 14:48 36.3 C L 75 18 149/70 H 93 08/09/20 09:20 94 08/09/20 08:04 36.4 C L 77 20 147/78 H 96 Laboratory Results Short CBC 08/09/20 Range/Units 05:28 WBC 8.20 (4.8-10.8) K/uL Hgb 13.4 (12.0-16.0) g/dL Hct 39.9 (37-47) % Plt Count 127 L (130-400) K/uL BMP 08/09/20 05:28 Sodium 140 Potassium 3.9 Chloride 107 Carbon Dioxide 29 BUN 14 Creatinine 0.91 Glucose 136 H Calcium 8.6 Medications Administered Current Inpatient Medications Acetaminophen (Acetaminophen 325 Mg Tab) 650 mg PO Q4H PRN PRN Reason: pain/fever Stop: 09/07/20 10:16 Amitriptyline HCl (Amitriptyline Hcl 25 Mg Tab) 25 mg PO HS [facility] Stop: 09/07/20 20:59 Last Admin: 08/08/20 20:23 Dose: 25 mg Documented by: Atorvastatin Calcium (Atorvastatin 40 Mg Tab) 80 mg PO QPM [facility] Stop: 09/07/20 20:59 Last Admin: 08/08/20 20:23 Dose: 80 mg Documented by: Bupropion HCl (Bupropion Sr 150 Mg Tabcr) 150 mg PO BID [facility] Stop: 09/07/20 10:16 Last Admin: 08/09/20 09:15 Dose: 150 mg Documented by: Dextrose (Dextrose 50% 50 Ml Syringe) 25 - 50 ml IV UD PRN; Protocol PRN Reason: Hypoglycemia Protocol Stop: 09/07/20 10:44 Glucagon (Glucagon For Inj 1 Mg Vial) 1 mg IM UD PRN; Protocol PRN Reason: Hypoglycemia Protocol Stop: 09/07/20 10:44 Glucose (Glucose 40% Gel 15 Gm Tube) 15 - 30 gm PO UD PRN; Protocol PRN Reason: Hypoglycemia Protocol Stop: 09/07/20 10:44 Glucose (Glucose 10 Tabs/Tube) 4 - 8 tabs PO UD PRN; Protocol PRN Reason: Hypoglycemia Protocol Stop: 09/07/20 10:44 Hydralazine HCl (Hydralazine Hcl 20 Mg/Ml Vial) 5 mg IV Q6H PRN PRN Reason: Hypertension Stop: 09/07/20 10:16 Hydromorphone HCl (Hydromorphone Inj 0.5 Mg/0.5 Ml Syr) 0.5 mg IV Q3H PRN PRN Reason: Pain Stop: 08/22/20 10:16 Last Admin: 08/09/20 11:50 Dose: 0.5 mg Documented by: Dextrose/Sodium Chloride (D5w And Nss) 1,000 mls @ 125 mls/hr IV .Q8H [facility] Stop: 09/07/20 10:16 Last Admin: 08/09/20 11:35 Dose: 125 mls/hr Documented by: Insulin Aspart (Insulin Aspart 100 Units/Ml 3 Ml Pen) 0 units SC Q6 [facility] Stop: 09/07/20 11:59 Last Admin: 08/09/20 11:54 Dose: Not Given Documented by: Lisinopril (Lisinopril 20 Mg Tab) 20 mg PO QAM [facility] Stop: 09/07/20 10:16 Last Admin: 08/09/20 09:15 Dose: 20 mg Documented by: Miscellaneous (Carbohydrates For Hypoglycemia ) 15 - 30 gm PO UD PRN PRN Reason: Hypoglycemia Treatment Stop: 09/07/20 10:44 Ondansetron HCl (Ondansetron Inj 2 Mg/Ml 2 Ml Vial) 4 mg IV Q6H PRN PRN Reason: Nausea Stop: 09/07/20 10:16 Pantoprazole Sodium (Pantoprazole 40 Mg Tab) 40 mg PO BID [facility] Stop: 09/07/20 10:16 Last Admin: 08/09/20 09:15 Dose: 40 mg Documented by: Pramipexole Dihydrochloride (Pramipexole Dihydrochlo 0.5 Mg Tab) 0.5 mg PO HS [facility] Stop: 09/07/20 20:59 Last Admin: 08/08/20 20:22 Dose: 0.5 mg Documented by: Tizanidine HCl (Tizanidine Hcl 4 Mg Tablet) 4 mg PO DAILY PRN PRN Reason: MUSCLE SPASM Stop: 09/07/20 10:16 Tramadol HCl (Tramadol Hcl 50 Mg Tablet) 50 mg PO BID [facility] Stop: 09/07/20 10:16 Last Admin: 08/09/20 09:14 Dose: 50 mg Documented by:
--- NOTE | 2020-08-09 17:06 | XRay Report ---
XR chest 1V portable CLINICAL HISTORY: Covid 19 infection COMPARISON STUDY: No previous studies for comparison. FINDINGS: The heart is the upper limits of normal in size. There is an enteric tube which passes into the stomach. There is no failure. There is an old left sixth rib fracture. There are patchy left bas ilar densities, atelectatic versus infectious/inflammatory.[There are no large pleural effusions. IMPRESSION: Minimal left basilar opacities, atelectatic versus infectious/inflammatory. ACT 112: Negative or not required by law. Electronically signed by: Royce Espana M.D. 08/09/2020 5:05 PM
[2020-08-09] MEDS: ATORVASTATIN 40 MG TAB PO SCH (20:41)
[2020-08-09] MEDS: PRAMIPEXOLE DIHYDROCHLO 0.5 MG TAB PO SCH (20:42)
[2020-08-09] MEDS: AMITRIPTYLINE HCL 25 MG TAB PO SCH (20:42)
[2020-08-09] MEDS: HEPARIN SOD 5,000 UNIT/0.5 ML VIAL SQ SCH (22:53)
[2020-08-10] MEDS: INSULIN ASPART 100 UNITS/ML 3 ML PEN SC SCH ×4 (00:23→17:41)
[2020-08-10] MEDS: D5W AND NSS 1,000 ML IV SCH ×3 (02:49→23:57)
[2020-08-10] MEDS: HYDROmorphone INJ 0.5 MG/0.5 ML SYR IV PRN ×5 (03:33→22:19)
[2020-08-10] MEDS: buPROPion SR 150 MG TABCR PO SCH ×2 (09:21→21:17)
[2020-08-10] MEDS: PANTOprazole 40 MG TAB PO SCH ×2 (09:21→21:17)
[2020-08-10] MEDS: traMADol HCL 50 MG TABLET PO SCH ×2 (09:21→21:16)
[2020-08-10] MEDS: HEPARIN SOD 5,000 UNIT/0.5 ML VIAL SQ SCH ×2 (09:21→21:18)
[2020-08-10] MEDS: lisinopril 20 MG TAB PO SCH (09:21)
--- NOTE | 2020-08-10 09:37 | Surgery Progress Note ---
Date of Service August 10, 2020 Assessment & Plan (1) Partial small bowel obstruction: -No return of bowel function yet after 1 day of NGT decompression -Will give her another day of NGT/NPO -If no improvement by tomorrow, will order SBFT which can be therapeutic -If develops severe pain, sustained tachycardia, high WBC she may need urgent laparotomy Admission and Anticipated Discharge Date Admission Date: August 08, 2020 Subjective Pt seen and examined. Pain improved but still present. No fevers. No tachycardia. No flatus or BM. Physical Exam Constitutional: WD/WN, vitals as above Respiratory: normal respiratory effort, lungs clear to auscultation Cardiovascular: RRR, no murmur, no edema Gastrointestinal (Abdomen): Inspection/Auscultation: abdomen normal to in spection; abdomen not distended Percussion/Palpation: + abdomen tender (mild TTP throughout abdomen) and abdomen soft; no guarding and abdomen not rigid Skin: no rashes, warm and dry Psychiatric: A+Ox3, euthymic affect Results & Data ([facility]) Vital Signs (Past 12 Hours) Vital Signs Temp Pulse Resp BP Pulse Ox 08/10/20 08:36 36.6 C 80 16 177/70 H 93 08/10/20 03:45 160/81 H 08/09/20 23:34 81 156/79 H 08/09/20 23:00 36.9 C 84 16 187/72 H 94 PG Care Time/CCT Total # of Minutes Spent Total Time Spent with Patient: Total time spent is greater than 50% in coordination of care (as documented) at patient's floor/unit and/or counseling patient: Coding Level of Care Code 15492 Subseq Hosp Care Lvl 1 Diagnoses Partial small bowel obstruction K56.600
[2020-08-10 09:57] LABS: Basophils # (auto) 0.02 K/uL (0-0.2); Basophils % (auto) 0.2 %; Eosinophils # (auto) 0.17 K/uL (0-0.5); Hematocrit (blood only) 35.2 % (37-47); Hemoglobin 11.8 g/dL (12.0-16.0); Immature Granulocytes # (auto) 0.02 K/uL (0.00-0.02); Immature Granulocytes % (auto) 0.2 %; Lymphocytes # (auto) 1.95 K/uL (1.2-3.4); Lymphocytes % (auto) 22.8 %; Mean Corpuscular Hemoglobin 31.6 pg (25-34); Mean Corpuscular Hgb Conc 33.5 g/dL (32-36); Mean Corpuscular Volume 94.4 fL (80-100); Monocytes # (auto) 0.89 K/uL (0.11-0.59); Monocytes % (auto) 10.4 %; Neutrophils # (auto) 5.51 K/uL (1.4-6.5); Neutrophils % (auto) 64.4 %; Platelet Count 126 K/uL (130-400); RDW Coefficient of Variation 13.1 % (11.5-14.5); RDW Standard Deviation 45.2 fL (36.4-46.3); Red Blood Count 3.73 M/uL (4.2-5.4); White Blood Count 8.56 K/uL (4.8-10.8)
[2020-08-10 10:15] LABS: BUN Creatinine Ratio 10.2 (10-20); Calcium 8.3 mg/dl (8.5-10.1); Est GFR (African American) 79.4; Est GFR (Non-African American) 68.5; Magnesium 1.6 mg/dl (1.8-2.4); Potassium 3.7 mmol/L (3.5-5.1)
[2020-08-10 10:19] LABS: Albumin Globulin Ratio 0.8 (0.9-2); Bilirubin,Total 0.6 mg/dl (0.2-1); Globulin 3.8 gm/dl (2.5-4.0); Phosphorus 2.1 mg/dl (2.5-4.9); Total Protein 6.8 gm/dl (6.4-8.2)
--- NOTE | 2020-08-10 10:21 | XRay Report ---
KUB HISTORY: Follow-up Small bowel obstruction. COMPARISON: KUB 08/09/2020. FINDINGS: A nasogastric tube is now seen within the stomach. The left hip prosthesis in place. Multip le mildly dilated gas-filled loops of small bowel are again seen throughout the abdomen consistent wi th a small bowel obstruction. These measure up to 3.8 cm in diameter. Prior cholecystectomy. No rickey l calculi. No ureteral calculi. No pneumoperitoneum or pneumatosis. IMPRESSION: 1. No change in the small bowel obstruction pattern. 2. Nasogastric tube terminates in the stomach. ACT 112: Negative or not required by law. Electronically signed by: Sushil Zambrano M.D. 08/10/2020 10:19 AM
[2020-08-10] MEDS ORDERED: methylPREDNISolone 20 MG in SYRINGE 0 ML IV ONE (11:30)
--- NOTE | 2020-08-10 12:31 | Hospitalist Progress Note ---
Date of Service August 10, 2020 Assessment & Plan (1) Partial small bowel obstruction: Has history of cholecystectomy and hysterectomy No history of SBO before Admitted with abdominal pain and nausea noted to have small bowel obstruction on CAT scan Has been kept on n.p.o., IV fluids and pain medications Appreciate surgery input and recommendation She has now NG tube placement for decompression Condition deteriorated with increasing abdominal distention and pain We will continue NGT suction for now and keep her n.p.o. Gout Noted to have acute gouty pain Was on oral colchicine Cannot take any NSAID's due to allergies We will try single dose of intravenous Solu-Medrol at 20 mg Can start oral colchicine as soon as she starts taking food orally (2) COVID-19 virus infection: Is a status post first dose of Covid vaccine recently Noted to be Covid positive but does not have any symptoms Saturating normally on room air Denies any respiratory symptoms and saturating well on room air (3) Hypertension: Remains on the upper side of normal (4) Manzo's esophagus: Continue PPI (5) Obstructive sleep apnea: No acute symptoms (6) Restless leg syndrome: Continue current medication DVT prophylaxis We will start subcu heparin Discussed with the son and the Admission and Anticipated Discharge Date Admission Date: August 08, 2020 Subjective 08/09/2020 The patient was seen and examined in medical floor She was admitted yesterday with SBO and COVID-19 virus infection without any significant respiratory symptoms She required NG tube placement by surgery this morning Complains of abdominal pain without any nausea and/or vomiting 08/10/2020 The patient was seen and examined in medical floor She has more abdominal distention with pain and her bowel is not moved yet She will require to have NG suction as planned Denies any shortness of breath and has been saturating well with room air Review of Systems Review of Systems: All systems reviewed and are unremarkable except as noted below Gastrointestinal: + abdominal pain and + bloating; no nausea and no vomiting Physical Exam Physical Exam: Lying in bed with mild to moderate distress due to abdominal discomfort Constitutional: well developed, well nourished and + ill appearing Eyes: PERRL, conjunctivae normal, anicteric sclerae ENMT: external ear and nose normal, oropharynx normal Neck: trachea midline, no thyromegaly Respiratory: no respiratory distress Auscultation: lungs clear to auscultation bilaterally Cardiovascular: Rate/Rhythm: regular rate and regular rhythm Heart Sounds: no murmur Extremities: no edema Gastrointestinal (Abdomen): Inspection/Auscultation: + abdomen distended; + abnormal bowel sounds (Decreased) Percussion/Palpation: + abdomen tender and abdomen soft Musculoskeletal: No acute arthritis in any joint Psychiatric: A+Ox3, euthymic affect Lymphatic: no cervical or axillary lymphadenopathy Results & Data Results & Data ([facility]) Vital Signs (Past 12 Hours) Vital Signs Temp Pulse Resp BP Pulse Ox 08/10/20 08:36 36.6 C 80 16 177/70 H 93 08/10/20 03:45 160/81 H Laboratory Results Short CBC 08/10/20 Range/Units 09:34 WBC 8.56 (4.8-10.8) K/uL Hgb 11.8 L (12.0-16.0) g/dL Hct 35.2 L (37-47) % Plt Count 126 L (130-400) K/uL BMP 08/10/20 09:34 Sodium 139 Potassium 3.7 Chloride 108 H Carbon Dioxide 26 BUN 8 D Creatinine 0.83 Glucose 115 H Calcium 8.3 L Liver Function 08/10/20 Range/Units 09:34 Total Bilirubin 0.6 (0.2-1) mg/dl AST 25 (15-37) U/L ALT 30 (12-78) U/L Alkaline Phosphatase 73 (45-117) U/L Albumin 3.0 L (3.4-5.0) gm/dl Medications Administered Current Inpatient Medications Acetaminophen (Acetaminophen 325 Mg Tab) 650 mg PO Q4H PRN PRN Reason: pain/fever Stop: 09/07/20 10:16 Last Admin: 08/10/20 06:02 Dose: 650 mg Documented by: Amitriptyline HCl (Amitriptyline Hcl 25 Mg Tab) 25 mg PO HS [facility] Stop: 09/07/20 20:59 Last Admin: 08/09/20 20:42 Dose: 25 mg Documented by: Atorvastatin Calcium (Atorvastatin 40 Mg Tab) 80 mg PO QPM [facility] Stop: 09/07/20 20:59 Last Admin: 08/09/20 20:41 Dose: 80 mg Documented by: Bupropion HCl (Bupropion Sr 150 Mg Tabcr) 150 mg PO BID [facility] Stop: 09/07/20 10:16 Last Admin: 08/10/20 09:21 Dose: 150 mg Documented by: Dextrose (Dextrose 50% 50 Ml Syringe) 25 - 50 ml IV UD PRN; Protocol PRN Reason: Hypoglycemia Protocol Stop: 09/07/20 10:44 Glucagon (Glucagon For Inj 1 Mg Vial) 1 mg IM UD PRN; Protocol PRN Reason: Hypoglycemia Protocol Stop: 09/07/20 10:44 Glucose (Glucose 40% Gel 15 Gm Tube) 15 - 30 gm PO UD PRN; Protocol PRN Reason: Hypoglycemia Protocol Stop: 09/07/20 10:44 Glucose (Glucose 10 Tabs/Tube) 4 - 8 tabs PO UD PRN; Protocol PRN Reason: Hypoglycemia Protocol Stop: 09/07/20 10:44 Heparin Sodium (Porcine) (Heparin Sod 5,000 Unit/0.5 Ml Vial) 5,000 units SQ Q12 [facility] Stop: 09/08/20 20:59 Last Admin: 08/10/20 09:21 Dose: 5,000 units Documented by: Hydralazine HCl (Hydralazine Hcl 20 Mg/Ml Vial) 5 mg IV Q6H PRN PRN Reason: Hypertension Stop: 09/07/20 10:16 Hydromorphone HCl (Hydromorphone Inj 0.5 Mg/0.5 Ml Syr) 0.5 mg IV Q3H PRN PRN Reason: Pain Stop: 08/22/20 10:16 Last Admin: 08/10/20 10:26 Dose: 0.5 mg Documented by: Dextrose/Sodium Chloride (D5w And Nss) 1,000 mls @ 125 mls/hr IV .Q8H [facility] Stop: 09/07/20 10:16 Last Admin: 08/10/20 10:26 Dose: 125 mls/hr Documented by: Insulin Aspart (Insulin Aspart 100 Units/Ml 3 Ml Pen) 0 units SC Q6 [facility] Stop: 09/07/20 11:59 Last Admin: 08/10/20 05:50 Dose: Not Given Documented by: Lisinopril (Lisinopril 20 Mg Tab) 20 mg PO QAM [facility] Stop: 09/07/20 10:16 Last Admin: 08/10/20 09:21 Dose: 20 mg Documented by: Miscellaneous (Carbohydrates For Hypoglycemia ) 15 - 30 gm PO UD PRN PRN Reason: Hypoglycemia Treatment Stop: 09/07/20 10:44 Ondansetron HCl (Ondansetron Inj 2 Mg/Ml 2 Ml Vial) 4 mg IV Q6H PRN PRN Reason: Nausea Stop: 09/07/20 10:16 Pantoprazole Sodium (Pantoprazole 40 Mg Tab) 40 mg PO BID [facility] Stop: 09/07/20 10:16 Last Admin: 08/10/20 09:21 Dose: 40 mg Documented by: Pramipexole Dihydrochloride (Pramipexole Dihydrochlo 0.5 Mg Tab) 0.5 mg PO HS [facility] Stop: 09/07/20 20:59 Last Admin: 08/09/20 20:42 Dose: 0.5 mg Documented by: Tizanidine HCl (Tizanidine Hcl 4 Mg Tablet) 4 mg PO DAILY PRN PRN Reason: MUSCLE SPASM Stop: 09/07/20 10:16 Tramadol HCl (Tramadol Hcl 50 Mg Tablet) 50 mg PO BID [facility] Stop: 09/07/20 10:16 Last Admin: 08/10/20 09:21 Dose: 50 mg Documented by:
[2020-08-10] MEDS: ONDANSETRON INJ 2 MG/ML 2 ML VIAL IV PRN (12:53)
[2020-08-10] MEDS: hydrALAZINE HCL 20 MG/ML VIAL IV PRN (12:53)
[2020-08-10] MEDS: hydrALAZINE HCL 20 MG/ML VIAL IV SCH ×2 (13:09→20:14)
[2020-08-10] MEDS ORDERED: POTASSIUM PHOS 3 MMOL/1 ML INFUSION IV STA (14:36)
[2020-08-10] MEDS ORDERED: POTASSIUM PHOSPHATE 30 MMOL in SODIUM CHLORIDE 0.9% 500 ML IV ONE (14:45)
[2020-08-10] MEDS: MAGNESIUM SULFATE / D5W 1 GM/100 ML BAG IV SCH ×2 (15:12→17:45)
[2020-08-10] MEDS: PRAMIPEXOLE DIHYDROCHLO 0.5 MG TAB PO SCH (21:17)
[2020-08-10] MEDS: ATORVASTATIN 40 MG TAB PO SCH (21:18)
[2020-08-10] MEDS: AMITRIPTYLINE HCL 25 MG TAB PO SCH (21:18)
[2020-08-11] MEDS: INSULIN ASPART 100 UNITS/ML 3 ML PEN SC SCH ×4 (00:31→17:48)
[2020-08-11] MEDS: hydrALAZINE HCL 20 MG/ML VIAL IV SCH ×4 (00:33→17:48)
[2020-08-11] MEDS: D5W AND NSS 1,000 ML IV SCH ×3 (03:57→19:39)
[2020-08-11] MEDS: HYDROmorphone INJ 0.5 MG/0.5 ML SYR IV PRN ×4 (04:02→22:36)
[2020-08-11] MEDS: PANTOprazole 40 MG TAB PO SCH ×2 (07:53→21:30)
[2020-08-11] MEDS: HEPARIN SOD 5,000 UNIT/0.5 ML VIAL SQ SCH ×2 (07:54→21:30)
[2020-08-11] MEDS: traMADol HCL 50 MG TABLET PO SCH (07:54)
[2020-08-11] MEDS: buPROPion SR 150 MG TABCR PO SCH ×2 (07:54→21:30)
[2020-08-11] MEDS: lisinopril 20 MG TAB PO SCH (07:55)
--- NOTE | 2020-08-11 09:07 | Surgery Progress Note ---
Date of Service August 11, 2020 Assessment & Plan (1) Partial small bowel obstruction: -No return of bowel function yet after 2 days of NGT decompression -She currently has no signs of ischemic bowel -We discussed options of continued non-operative treatment versus proceeding to the OR today, patient would like to avoid operation if possible -We will order a SBFT for tomorrow AM -If develops severe pain, sustained tachycardia, high WBC she may need urgent laparotomy Admission and Anticipated Discharge Date Admission Date: August 08, 2020 Subjective Pt seen and examined. Pain still present. Still with distension. No fevers. No tachycardia. No flatus or BM. Review of Systems Review of Systems: All systems reviewed and are unremarkable except as noted below Gastrointestinal: + abdominal pain and + bloating; no nausea and no vomiting Physical Exam Constitutional: WD/WN, vitals as above Respiratory: normal respiratory effort, lungs clear to auscultation Cardiovascular: RRR, no murmur, no edema Gastrointestinal (Abdomen): Inspection/Auscultation: abdomen normal to inspection; abdomen not distended Percussion/Palpation: + abdomen tender (mild TTP throughout abdomen) and abdomen soft; no guarding and abdomen not rigid Skin: no rashes, warm and dry Psychiatric: A+Ox3, euthymic affect Results & Data ([facility]) Vital Signs (Past 12 Hours) Vital Signs Temp Pulse Resp BP Pulse Ox 08/11/20 07:49 36.5 C 78 16 138/80 95 08/11/20 05:42 36.6 C 73 14 146/72 H 95 08/10/20 23:50 36.7 C 74 14 122/69 92 PG Care Time/CCT Total # of Minutes Spent Total Time Spent with Patient: Total time spent is greater than 50% in coordination of care (as documented) at patient's floor/unit and/or counseling patient: Coding Level of Care Code 37996 Subseq Hosp Care Lvl 1 Diagnoses Partial small bowel obstruction K56.600
[2020-08-11 09:48] LABS: Basophils # (auto) 0.01 K/uL (0-0.2); Basophils % (auto) 0.1 %; Eosinophils # (auto) 0.08 K/uL (0-0.5); Eosinophils % (auto) 0.9 %; Hematocrit (blood only) 33.2 % (37-47); Hemoglobin 11.4 g/dL (12.0-16.0); Immature Granulocytes # (auto) 0.01 K/uL (0.00-0.02); Immature Granulocytes % (auto) 0.1 %; Lymphocytes # (auto) 1.67 K/uL (1.2-3.4); Lymphocytes % (auto) 18.3 %; Mean Corpuscular Hemoglobin 31.9 pg (25-34); Mean Corpuscular Hgb Conc 34.3 g/dL (32-36); Monocytes # (auto) 0.93 K/uL (0.11-0.59); Monocytes % (auto) 10.2 %; Neutrophils # (auto) 6.41 K/uL (1.4-6.5); Neutrophils % (auto) 70.4 %; Platelet Count 120 K/uL (130-400); Red Blood Count 3.57 M/uL (4.2-5.4); White Blood Count 9.11 K/uL (4.8-10.8)
[2020-08-11] MEDS ORDERED: fentaNYL citrate 100 MCG/2 ML VIAL ONE (10:04)
--- NOTE | 2020-08-11 10:10 | Anesthesiology Consultation ---
Date of Service August 11, 2020 Assessment & Plan (1) Encounter for pre-operative examination: Chart Review Chart Review: pharmacy order entry technician initiated History Surgery Operation Date: 08/11/20 09:25 Proposed Procedures p Exploratory Laparotomy - Eamon Goodwin DO Height/Weight Height: 5 ft 3 in Weight: 89 kg Allergies Allergy/AdvReac Type Severity Reaction Status Date / Time indomethacin Allergy Mild rash Verified 08/08/20 05:26 meclizine Allergy Mild RASH Verified 08/08/20 05:26 naproxen Allergy Mild RASH Verified 08/08/20 05:26 Penicillins AdvReac Mild RASH Verified 08/08/20 05:26 Medications Home Medications Medication Instructions Recorded Confirmed Last Taken adalimumab [Humira Pen] 40 mg SUBCUT .Q2WK 08/08/20 08/08/20 08/01/20 amitriptyline 25 mg PO HS 08/08/20 08/08/20 08/07/20 atorvastatin 80 mg PO QPM 08/08/20 08/08/20 08/07/20 bupropion HCl 150 mg PO BID 08/08/20 08/08/20 08/07/20 lisinopril 20 mg PO QAM 08/08/20 08/08/20 08/07/20 multivitamin 1 tab PO QAM 08/08/20 08/08/20 08/07/20 pantoprazole 40 mg PO BID 08/08/20 08/08/20 08/07/20 pramipexole 0.5 mg PO HS 08/08/20 08/08/20 08/07/20 tizanidine 4 mg PO DIRECTED PRN 08/08/20 08/08/20 Unknown tramadol 50 mg PO BID 08/08/20 08/08/20 08/07/20 Active Medications Generic Name Dose Route Start Last Admin Trade Name Freq PRN Reason Stop Dose Admin Acetaminophen 650 mg 08/08/20 10:17 08/10/20 06:02 Acetaminophen 325 Mg Tab PO 09/07/20 10:16 650 mg Q4H PRN Administration pain/fever Amitriptyline HCl 25 mg 08/08/20 21:00 08/10/20 21:18 Amitriptyline Hcl 25 Mg Tab PO 09/07/20 20:59 25 mg HS ESTEPHANIE Administration Atorvastatin Calcium 80 mg 08/08/20 21:00 08/10/20 21:18 Atorvastatin 40 Mg Tab PO 09/07/20 20:59 80 mg QPM ESTEPHANIE Administration Bupropion HCl 150 mg 08/08/20 10:17 08/11/20 07:54 Bupropion Sr 150 Mg Tabcr PO 09/07/20 10:16 150 mg BID ESTEPHANIE Administration Heparin Sodium (Porcine) 5,000 units 08/09/20 21:00 08/11/20 07:54 Heparin Sod 5,000 Unit/0.5 Ml Vial SQ 09/08/20 20:59 5,000 units Q12 ESTEPHANIE Administration Hydralazine HCl 5 mg 08/08/20 10:17 08/10/20 12:53 Hydralazine Hcl 20 Mg/Ml Vial IV 09/07/20 10:16 5 mg Q6H PRN Administration Hypertension Hydralazine HCl 10 mg 08/10/20 13:00 08/11/20 07:03 Hydralazine Hcl 20 Mg/Ml Vial IV 09/09/20 12:59 Not Given Q6H ESTE[facility]IE Hydromorphone HCl 0.5 mg 08/08/20 10:17 08/11/20 04:02 Hydromorphone Inj 0.5 Mg/0.5 Ml Syr IV 08/22/20 10:16 0.5 mg Q3H PRN Administration Pain Dextrose/Sodium Chloride 1,000 mls @ 125 mls/hr 08/08/20 10:17 08/11/20 07:55 D5w And Nss IV 09/07/20 10:16 125 mls/hr .Q8H ESTEPHANIE Administration Insulin Aspart 0 units 08/08/20 12:00 08/11/20 06:07 Insulin Aspart 100 Units/Ml 3 Ml Pen SC 09/07/20 11:59 Not Given Q6 ESTEPH[facility]IE Lisinopril 20 mg 08/08/20 10:17 08/11/20 07:55 Lisinopril 20 Mg Tab PO 09/07/20 10:16 20 mg QAM ESTEPHANIE Administration Ondansetron HCl 4 mg 08/08/20 10:17 08/10/20 12:53 Ondansetron Inj 2 Mg/Ml 2 Ml Vial IV 09/07/20 10:16 4 mg Q6H PRN Administration Nausea Pantoprazole Sodium 40 mg 08/08/20 10:17 08/11/20 07:53 Pantoprazole 40 Mg Tab PO 09/07/20 10:16 40 mg BID ESTEPHANIE Administration Pramipexole Dihydrochloride 0.5 mg 08/08/20 21:00 08/10/20 21:17 Pramipexole Dihydrochlo 0.5 Mg Tab PO 09/07/20 20:59 0.5 mg HS ESTEPHANIE Administration Tizanidine HCl 4 mg 08/08/20 10:17 08/11/20 07:54 Tizanidine Hcl 4 Mg Tablet PO 09/07/20 10:16 4 mg DAILY PRN Administration MUSCLE SPASM Tramadol HCl 50 mg 08/08/20 10:17 08/11/20 07:54 Tramadol Hcl 50 Mg Tablet PO 09/07/20 10:16 50 mg BID ESTEPHANIE Administration NPO Date Last Intake of Fluids: 08/11/20 Time Last Intake of Fluids: 08:00 Last Intake of Fluids Comment: Sips with meds Date Last Intake of Solids: 08/07/20 Past Medical History Medical History (Updated 08/11/20 @ 10:12 by Colin Grijalva DO) Manzo's esophagus COVID-19 virus infection Hypertension Obstructive sleep apnea Partial small bowel obstruction Restless leg syndrome Social History Smoking Status: Never smoker Hx Alcohol Use: No Hx Substance Use: No Physical Exam Vital Signs Last Vital Signs Temp 97.7 F 08/11/20 07:49 Pulse 78 08/11/20 07:49 Resp 16 08/11/20 07:49 BP 138/80 08/11/20 07:49 Pulse Ox 95 08/11/20 07:49 Testing Laboratory Results 08/11/20 09:24 08/10/20 09:34 Hemoglobin A1c 6.4 % (4.5-5.6) H 08/09/20 05:28 Urine Color Yellow 08/08/20 06:56 Urine Appearance Cloudy (Clear) A 08/08/20 06:56 Urine pH 5.0 (4.5-7.5) 08/08/20 06:56 Ur Specific [place] > 1.045 (1.000-1.030) H 08/08/20 06:56 Urine Protein Negative (Negative) 08/08/20 06:56 Urine Glucose (UA) Negative (Negative) 08/08/20 06:56 Urine Ketones Negative (Negative) 08/08/20 06:56 Urine Nitrite Negative (Negative) 08/08/20 06:56 Ur Leukocyte Esterase 2+ (Negative) H 08/08/20 06:56 Urine WBC (Auto) >30 /hpf (0-5) H 08/08/20 06:56 Urine RBC (Auto) 0-4 /hpf (0-4) 08/08/20 06:56 U Hyaline Cast (Auto) 1-5 /lpf (0-5) 08/08/20 06:56 U Epithel Cells (Auto) >30 /lpf (0-5) H 08/08/20 06:56 Urine Bacteria (Auto) Negative (Negative) 08/08/20 06:56 08/08/20 06:56 Urine Culture - Final Urine,Clean Catch More than three types of organisms present, all high counts mixed probable skin dorothea - No further identifications or sensitivities to follow. 08/11/20 08/10/20 05:47 23:54 POC Glucose 129 H 145 H Electrocardiogram Date: 08/08/20 Normal sinus rhythm, rate 76 bpm T wave abnormality, consider lateral ischemia Abnormal ECG When compared with ECG of 09-JUL-2015 14:09, No significant change was found Confirmed by Jamaal Quintero ([id number]) on 08/09/2020 5:50:36 AM Chest X-Ray Date: 08/09/20 IMPRESSION: Minimal left basilar opacities, atelectatic versus infectious/inflammatory.
[2020-08-11] MEDS ORDERED: cefOXitin 2,000 MG in DEXTROSE 5% 50 ML IV ONE (10:15)
[2020-08-11] MEDS ORDERED: HYDROmorphone INJ 1 MG/ML SYRINGE IV PRN (10:38)
[2020-08-11] MEDS ORDERED: ATROPINE SULFATE 0.1 MG/ML 10ML SYR IV PRN (10:38)
[2020-08-11] MEDS ORDERED: ONDANSETRON INJ 2 MG/ML 2 ML VIAL IV PRN (10:38)
[2020-08-11] MEDS ORDERED: ePHEDrine sulfate 50 MG/ML AMP IV PRN (10:38)
[2020-08-11] MEDS ORDERED: ALBUMIN HUMAN 5% 12.5 GM/250 ML VIAL IV ONE (10:41)
--- NOTE | 2020-08-11 10:46 | History & Physical Bridge Note ---
Date of Service August 11, 2020 History & Physical Bridge Note I have examined the patient, reviewed the History & Physical and in the interval since the performance of the History & Physical I have noted the following changes of clinical significance: no changes noted
--- NOTE | 2020-08-11 12:31 | Post Operative Brief Note ---
PG Immediate Post Op with CF Date of Surgery August 11, 2020 Pre & Post Diagnosis Operation Date: 08/11/20 09:25 Pre-Op Diagnosis: Small Bowel Obstruction Post-Op Diagnosis: Small Bowel Obstruction I identified the patient and participated in the time-out.: Yes Procedure Operation Date: 08/11/20 09:25 Actual Procedures p Exploratory Laparotomy, Lysis of Adhesions(Not Applicable) - Eamon Goodwin DO Surgeon Eamon Goodwin DO [employer] Plant Operator None Estimated Blood Loss 10 Findings See Below Murky fluid upon entrance to abdomen, closed loop small bowel obstruction due to adhesions Fluids 700ml crystalloid 250ml albumin Specimens Specimen Description: Culture #1: Peritnoeal Fluid - sent out of OR#1 by Tisha Sternk OR aide Drains Gardner Catheter (16 wolof 10ml balloon) Anesthesia Type General Complications none Disposition Disposition: Recovery Room
[2020-08-11] MEDS: fentaNYL citrate 100 MCG/2 ML VIAL IV PRN ×6 (12:45→13:16)
--- NOTE | 2020-08-11 12:47 | Operative Report ---
PG Post Operative Report Pre & Post Diagnosis Operation Date: 08/11/20 09:25 Pre-Op Diagnosis: Small Bowel Obstruction Post-Op Diagnosis: Closed Loop Small Bowel Obstruction I identified the patient and participated in the time-out.: Yes Procedure Operation Date: 08/11/20 09:25 Actual Procedures p Exploratory Laparotomy, Lysis of Adhesions(Not Applicable) - Eamon Goodwin DO Surgeon Eamon Goodwin DO Surveyor Chain Helper None Estimated Blood Loss 10 Findings See Below Closed loop small bowel obstruction due to adhesions Fluids 700ml crystalloid 250ml albumin Specimens Peritoneal fluid for culture Drains None Anesthesia Type General Complications none Disposition Disposition: Recovery Room Indications 74 yo female with small bowel obstruction refractory to non-operative management Description of Procedure The patient was brought to the OR and placed in the supine position with both arms abducted. At this time she underwent general endotracheal anesthesia without any problems. She was given appropriate pre-operative antibiotics. Her abdomen was prepped and draped in the usual sterile fashion. Timeout was called. The procedure was verified as Exploratory laparotomy, possible bowel resection, possible ostomy, possible wound vac. Surgical, anesthesia and nursing teams agreed and the procedure was begun. A standard midline incision was made using a #10 blade scalpel. This was carried down to the fascia using electrocautery. The midline fascia was then incised with electrocautery. The peritoneum was then entered bluntly. The incision was then opened up through its entirety. Peritoneal fluid was encountered and sent for culture. Omental adhesions were lysed sharply at her previous umbilectomy site. At this point the small bowel was eviscerated and there was an adhesive band that was found in the mid portion of the ileum that was draped across two sections of small bowel essentially causing a closed loop obstruction. This was lysed using electrocautery. At this point the small bowel was ran from the ligament of Treitz to the cecum. There was no ischemic changes noted and the area of obstruction was observed to have active peristalsis. The bowel was dilated proximal to this point and decompressed distal to this point. I was able to milk intestinal contents through the prior site of obstruction with ease. The entire colon was then inspected and found to be free of pathology. At this point the wound was then irrigated until clear. Hemostasis was achieved using electrocautery. Hemostasis was complete. The fascia was then closed in a running fashion using 2 #1 looped PDS suture starting superiorly and inferiorly and meeting in the middle. Skin was closed with jesús. Sterile dressing was applied. All needle and sponge counts were correct x 2. At this point the patient was awakened from anesthesia, and transported to PACU in stable condition. I attest to the content of the Intraoperative Record and any orders documented therein. Any exceptions are noted below.
--- NOTE | 2020-08-11 13:21 | Anesthesiology Progress Note ---
Date of Service August 11, 2020 Anesthesia Post Procedure Vital Signs Vital Signs: Temp Pulse Pulse Pulse Resp BP BP 08/11/20 13:10 76 12 159/76 H 08/11/20 13:00 76 14 204/75 H 08/11/20 12:50 74 13 183/75 H 08/11/20 12:40 98.8 F 78 16 133/81 08/11/20 07:49 97.7 F 78 16 138/80 08/11/20 05:42 97.9 F 73 14 146/72 H 08/10/20 23:50 98.1 F 74 14 122/69 08/10/20 19:44 98.1 F 87 16 151/74 H 08/10/20 15:17 99.0 F 95 H 20 152/71 H Pulse Ox 08/11/20 13:10 96 08/11/20 13:00 97 08/11/20 12:50 98 08/11/20 12:40 98 08/11/20 07:49 95 08/11/20 05:42 95 08/10/20 23:50 92 08/10/20 19:44 95 08/10/20 15:17 93 Pain Intensity Abdomen: Pain Intensity: 6 Transfer of Care Handoff Completed per policy Notes Mental Status: alert / awake / arousable and participated in evaluation Patient Amnestic to Procedure: Yes Nausea / Vomiting: adequately controlled Pain: adequately controlled Airway Patency, RR, SpO2: stable & adequate BP & HR: stable & adequate Hydration State: stable & adequate Anesthetic Complications: no major complications apparent and Pt Satisfied with anesthetic care
--- NOTE | 2020-08-11 15:06 | Hospitalist Progress Note ---
Date of Service August 11, 2020 Assessment & Plan (1) Partial small bowel obstruction: Has history of cholecystectomy and hysterectomy No history of SBO before Admitted with abdominal pain and nausea noted to have small bowel obstruction on CAT scan Has been kept on n.p.o., IV fluids and pain medications Appreciate surgery input and recommendation She has now NG tube placement for decompression Condition deteriorated with increasing abdominal distention and pain We will continue NGT suction for now and keep her n.p.o. Status post exploratory laparotomy and lysis of adhesions on 08/11/2020 Remains drowsy and bowel sound is very sluggish Gout Noted to have acute gouty pain Was on oral colchicine Cannot take any NSAID's due to allergies We will try single dose of intravenous Solu-Medrol at 20 mg Can start oral colchicine as soon as she starts taking food orally (2) COVID-19 virus infection: Is a status post first dose of Covid vaccine recently Noted to be Covid positive but does not have any symptoms Saturating normally on room air Denies any respiratory symptoms and saturating well on room air Has been on 3 L of nasal cannula oxygen following surgery (3) Hypertension: Remains on the upper side of normal (4) Manzo's esophagus: Continue PPI (5) Obstructive sleep apnea: No acute symptoms (6) Restless leg syndrome: Continue current medication DVT prophylaxis We will start subcu heparin Discussed with the son and the on 08/10/2020 Admission and Anticipated Discharge Date Admission Date: August 08, 2020 Subjective 08/09/2020 The patient was seen and examined in medical floor She was admitted yesterday with SBO and COVID-19 virus infection without any significant respiratory symptoms She required NG tube placement by surgery this morning Complains of abdominal pain without any nausea and/or vomiting 08/10/2020 The patient was seen and examined in medical floor She has more abdominal distention with pain and her bowel is not moved yet She will require to have NG suction as planned Denies any shortness of breath and has been saturating well with room air 08/11/2020 The patient was seen and examined in medical floor She is a status post exploratory laparotomy and lysis of adhesions She remains very drowsy and the pain seems to be reasonably controlled Review of Systems Review of Systems: Unobtainable due to reduced consciousness Physical Exam Physical Exam: Lying in bed with some distress Constitutional: well developed, well nourished, + acute distress (Status post laparotomy with lysis of adhesions this morning) and + ill appearing Eyes: PERRL, conjunctivae normal, anicteric sclerae ENMT: external ear and nose normal, oropharynx normal Neck: trachea midline, no thyromegaly Respiratory: no respiratory distress Auscultation: lungs clear to auscultation bilaterally Cardiovascular: Rate/Rhythm: regular rate and regular rhythm Heart Sounds: no murmur Extremities: no edema Gastrointestinal (Abdomen): Inspection/Auscultation: + abdomen distended; + abnormal bowel sounds (Decreased) Percussion/Palpation: + abdomen tender and abdomen soft Neurologic: Alert, awake, drowsy due to anesthetics and pain medications Psychiatric: A+Ox3, euthymic affect Lymphatic: no cervical or axillary lymphadenopathy Results & Data Results & Data ([facility]) Vital Signs (Past 12 Hours) Vital Signs Temp Pulse Pulse Resp BP Pulse Ox 08/11/20 14:27 36.8 C 91 H 14 156/70 H 95 08/11/20 14:00 36.8 C 79 16 175/75 H 95 08/11/20 13:30 37 C 76 14 159/70 H 97 08/11/20 13:20 37 C 77 14 159/73 H 97 08/11/20 13:10 76 12 159/76 H 96 08/11/20 13:00 76 14 204/75 H 97 08/11/20 12:50 74 13 183/75 H 98 08/11/20 12:40 37.1 C 78 16 133/81 98 08/11/20 07:49 36.5 C 78 16 138/80 95 08/11/20 05:42 36.6 C 73 14 146/72 H 95 Laboratory Results Short CBC 08/11/20 Range/Units 09:24 WBC 9.11 (4.8-10.8) K/uL Hgb 11.4 L (12.0-16.0) g/dL Hct 33.2 L (37-47) % Plt Count 120 L (130-400) K/uL Medications Administered Current Inpatient Medications Acetaminophen (Acetaminophen 325 Mg Tab) 650 mg PO Q4H PRN PRN Reason: pain/fever Stop: 09/07/20 10:16 Last Admin: 08/10/20 06:02 Dose: 650 mg Documented by: Amitriptyline HCl (Amitriptyline Hcl 25 Mg Tab) 25 mg PO HS [facility]EPH[facility]IE Stop: 09/07/20 20:59 Last Admin: 08/10/20 21:18 Dose: 25 mg Documented by: Atropine Sulfate (Atropine Sulfate 0.1 Mg/Ml 10ml Syr) 0.5 mg IV Q1M PRN PRN Reason: PACU Use-HR<40 &/or Bradycardi Stop: 08/11/20 18:38 Bupropion HCl (Bupropion Sr 150 Mg Tabcr) 150 mg PO BID [facility] Stop: 09/07/20 10:16 Last Admin: 08/11/20 07:54 Dose: 150 mg Documented by: Dextrose (Dextrose 50% 50 Ml Syringe) 25 - 50 ml IV UD PRN; Protocol PRN Reason: Hypoglycemia Protocol Stop: 09/07/20 10:44 Ephedrine Sulfate (Ephedrine Sulfate 50 Mg/Ml Amp) 5 mg IV Q5M PRN PRN Reason: PACU Use Only-SBP<90 mmHg Stop: 08/11/20 18:38 Fentanyl Citrate (Fentanyl Citrate 100 Mcg/2 Ml Vial) 25 mcg IV Q5M PRN PRN Reason: PACU Use Only-Pain Stop: 08/11/20 18:38 Last Admin: 08/11/20 13:16 Dose: 25 mcg Documented by: Glucagon (Glucagon For Inj 1 Mg Vial) 1 mg IM UD PRN; Protocol PRN Reason: Hypoglycemia Protocol Stop: 09/07/20 10:44 Glucose (Glucose 40% Gel 15 Gm Tube) 15 - 30 gm PO UD PRN; Protocol PRN Reason: Hypoglycemia Protocol Stop: 09/07/20 10:44 Glucose (Glucose 10 Tabs/Tube) 4 - 8 tabs PO UD PRN; Protocol PRN Reason: Hypoglycemia Protocol Stop: 09/07/20 10:44 Heparin Sodium (Porcine) (Heparin Sod 5,000 Unit/0.5 Ml Vial) 5,000 units SQ Q12 [facility] Stop: 09/08/20 20:59 Last Admin: 08/11/20 07:54 Dose: 5,000 units Documented by: Hydralazine HCl (Hydralazine Hcl 20 Mg/Ml Vial) 5 mg IV Q6H PRN PRN Reason: Hypertension Stop: 09/07/20 10:16 Last Admin: 08/10/20 12:53 Dose: 5 mg Documented by: Hydralazine HCl (Hydralazine Hcl 20 Mg/Ml Vial) 10 mg IV Q6H [facility] Stop: 09/09/20 12:59 Last Admin: 08/11/20 14:02 Dose: 10 mg Documented by: Hydromorphone HCl (Hydromorphone Inj 0.5 Mg/0.5 Ml Syr) 0.5 mg IV Q3H PRN PRN Reason: Pain Stop: 08/22/20 10:16 Last Admin: 08/11/20 10:32 Dose: 0.5 mg Documented by: Hydromorphone HCl (Hydromorphone Inj 1 Mg/Ml Syringe) 0.25 mg IV Q5M PRN PRN Reason: PACU Use Only-Pain Stop: 08/11/20 18:38 Dextrose/Sodium Chloride (D5w And Nss) 1,000 mls @ 125 mls/hr IV .Q8H [facility]IE Stop: 09/07/20 10:16 Last Infusion: 08/11/20 14:04 Dose: 125 mls/hr Documented by: Insulin Aspart (Insulin Aspart 100 Units/Ml 3 Ml Pen) 0 units SC Q6 [facility]EPHANIE Stop: 09/07/20 11:59 Last Admin: 08/11/20 14:32 Dose: Not Given Documented by: Miscellaneous (Carbohydrates For Hypoglycemia ) 15 - 30 gm PO UD PRN PRN Reason: Hypoglycemia Treatment Stop: 09/07/20 10:44 Ondansetron HCl (Ondansetron Inj 2 Mg/Ml 2 Ml Vial) 4 mg IV Q6H PRN PRN Reason: Nausea Stop: 09/07/20 10:16 Last Admin: 08/10/20 12:53 Dose: 4 mg Documented by: Ondansetron HCl (Ondansetron Inj 2 Mg/Ml 2 Ml Vial) 4 mg IV ONCE PRN PRN Reason: PACU Use Only-Nausea/Vomiting Stop: 08/11/20 18:39 Pantoprazole Sodium (Pantoprazole 40 Mg Tab) 40 mg PO BID [facility] Stop: 09/07/20 10:16 Last Admin: 08/11/20 07:53 Dose: 40 mg Documented by: Pramipexole Dihydrochloride (Pramipexole Dihydrochlo 0.5 Mg Tab) 0.5 mg PO HS [facility] Stop: 09/07/20 20:59 Last Admin: 08/10/20 21:17 Dose: 0.5 mg Documented by: Tizanidine HCl (Tizanidine Hcl 4 Mg Tablet) 4 mg PO DAILY PRN PRN Reason: MUSCLE SPASM Stop: 09/07/20 10:16 Last Admin: 08/11/20 07:54 Dose: 4 mg Documented by:
[2020-08-11] MEDS: AMITRIPTYLINE HCL 25 MG TAB PO SCH (21:29)
[2020-08-11] MEDS: PRAMIPEXOLE DIHYDROCHLO 0.5 MG TAB PO SCH (21:30)
[2020-08-12] MEDS: INSULIN ASPART 100 UNITS/ML 3 ML PEN SC SCH ×4 (00:03→19:03)
[2020-08-12] MEDS: hydrALAZINE HCL 20 MG/ML VIAL IV SCH ×3 (01:19→13:30)
[2020-08-12] MEDS: HYDROmorphone INJ 0.5 MG/0.5 ML SYR IV PRN ×6 (03:10→22:25)
[2020-08-12] MEDS: D5W AND NSS 1,000 ML IV SCH ×3 (03:17→22:22)
[2020-08-12 06:17] LABS: Basophils # (auto) 0.02 K/uL (0-0.2); Basophils % (auto) 0.2 %; Eosinophils # (auto) 0.05 K/uL (0-0.5); Eosinophils % (auto) 0.4 %; Hematocrit (blood only) 38.3 % (37-47); Hemoglobin 13.2 g/dL (12.0-16.0); Immature Granulocytes # (auto) 0.02 K/uL (0.00-0.02); Immature Granulocytes % (auto) 0.2 %; Mean Corpuscular Hemoglobin 32.7 pg (25-34); Mean Corpuscular Hgb Conc 34.5 g/dL (32-36); Mean Corpuscular Volume 94.8 fL (80-100); Mean Platelet Volume 10.2 fL (7.4-10.4); Monocytes # (auto) 1.52 K/uL (0.11-0.59); Monocytes % (auto) 12.4 %; Neutrophils # (auto) 8.44 K/uL (1.4-6.5); Neutrophils % (auto) 68.8 %; Platelet Count 178 K/uL (130-400); RDW Coefficient of Variation 13.6 % (11.5-14.5); RDW Standard Deviation 47.2 fL (36.4-46.3); Red Blood Count 4.04 M/uL (4.2-5.4); White Blood Count 12.25 K/uL (4.8-10.8)
[2020-08-12 06:43] LABS: BUN Creatinine Ratio 13.5 (10-20); Calcium 7.9 mg/dl (8.5-10.1); Creatinine Clr Calc Pharmacy 51.2 ml/min; Est GFR (African American) 64.2; Est GFR (Non-African American) 55.4; Potassium 4.2 mmol/L (3.5-5.1)
[2020-08-12 06:46] LABS: Phosphorus 2.8 mg/dl (2.5-4.9)
[2020-08-12] MEDS: HEPARIN SOD 5,000 UNIT/0.5 ML VIAL SQ SCH (08:48)
[2020-08-12] MEDS: PANTOprazole 40 MG TAB PO SCH ×2 (08:48→20:21)
[2020-08-12] MEDS: buPROPion SR 150 MG TABCR PO SCH ×2 (08:48→20:22)
--- NOTE | 2020-08-12 10:09 | Surgery Progress Note ---
Date of Service August 12, 2020 Assessment & Plan (1) Partial small bowel obstruction: POD 1 ex lap, DON continue NG until passing flatus dressing change tomorrow discussed with Dr. Plasencia, will give steroid for gout Admission and Anticipated Discharge Date Admission Date: August 08, 2020 Supervising Physician Co-Signing Physician Notes I personally saw the patient with Arsalan Pereyra PA-C and agree with the assessment and plan. 74 yo POD#1 exploratory laparotomy, DON for closed loop SBO -Continue NGT until flatus -Keep electrolytes normalized -Encourage ambulation -Ok to remove Gardner -Will follow Subjective abdominal pain better controlled, c/o right foot gout Physical Exam Gastrointestinal (Abdomen): Inspection/Auscultation: + abdomen distended (mild) and + abdominal surgical incision (dressing dry) Percussion/Palpation: abdomen soft UOP 125 NGT 130 Results & Data ([facility]) Vital Signs (Past 12 Hours) Vital Signs Temp Pulse Pulse Resp BP BP Pulse Ox 08/12/20 08:51 36.8 C 103 H 20 156/67 H 92 08/12/20 06:38 36.8 C 101 H 16 173/80 H 94 08/12/20 04:34 36.9 C 93 H 20 167/77 H 94 08/11/20 23:37 36.9 C 98 H 20 142/74 H 93 PG Care Time/CCT Total # of Minutes Spent Total Time Spent with Patient: Total time spent is greater than 50% in coordination of care (as documented) at patient's floor/unit and/or counseling patient: Coding Level of Care Code None Diagnoses Partial small bowel obstruction K56.600
[2020-08-12] MEDS ORDERED: methylPREDNISolone 20 MG in SYRINGE 0 ML IV ONE (10:29)
--- NOTE | 2020-08-12 11:25 | Hospitalist Progress Note ---
Date of Service August 12, 2020 Assessment & Plan (1) Partial small bowel obstruction: Has history of cholecystectomy and hysterectomy No history of SBO before Admitted with abdominal pain and nausea noted to have small bowel obstruction on CAT scan Has been kept on n.p.o., IV fluids and pain medications Appreciate surgery input and recommendation She has now NG tube placement for decompression Condition deteriorated with increasing abdominal distention and pain We will continue NGT suction for now and keep her n.p.o. Exploratory laparotomy with lysis of ideations, POD #1 Status post exploratory laparotomy and lysis of adhesions on 08/11/2020 Remains drowsy and bowel sound is very sluggish Bowel is not moved yet and she is not passing gas We will continue NG tube suction as for now Gout Noted to have acute gouty pain Was on oral colchicine Cannot take any NSAID's due to allergies We will try single dose of intravenous Solu-Medrol at 20 mg Can start oral colchicine as soon as she starts taking food orally Foot pain is worse today and will give another dose of Solu-Medrol 20 mg IV (2) COVID-19 virus infection: Is a status post first dose of Covid vaccine recently Noted to be Covid positive but does not have any symptoms Saturating normally on room air Denies any respiratory symptoms and saturating well on room air Has been on 3 L of nasal cannula oxygen following surgery Minimal cough but no other symptoms (3) Hypertension: Remains on the upper side of normal (4) Manzo's esophagus: Continue PPI (5) Obstructive sleep apnea: No acute symptoms (6) Restless leg syndrome: Continue current medication DVT prophylaxis We will start subcu heparin Discussed with the son and the on 08/10/2020 Admission and Anticipated Discharge Date Admission Date: August 08, 2020 Subjective 08/09/2020 The patient was seen and examined in medical floor She was admitted yesterday with SBO and COVID-19 virus infection without any significant respiratory symptoms She required NG tube placement by surgery this morning Complains of abdominal pain without any nausea and/or vomiting 08/10/2020 The patient was seen and examined in medical floor She has more abdominal distention with pain and her bowel is not moved yet She will require to have NG suction as planned Denies any shortness of breath and has been saturating well with room air 08/11/2020 The patient was seen and examined in medical floor She is a status post exploratory laparotomy and lysis of adhesions She remains very drowsy and the pain seems to be reasonably controlled 08/12/2020 The patient was seen and examined in medical floor She is a status post exploratory laparotomy, POD #1 She complains of abdominal pain and right foot pain likely due to gout Denies any increase in shortness of breath Has not had any bowel movement or any passing of gas Review of Systems Review of Systems: All systems reviewed and are unremarkable except as noted below Gastrointestinal: + abdominal pain and + bloating; no nausea and no vomiting Physical Exam Physical Exam: Lying in bed with some distress Constitutional: well developed, well nourished, + acute distress (Status post laparotomy with lysis of adhesions this morning) and + ill appearing Eyes: PERRL, conjunctivae normal, anicteric sclerae ENMT: Has NG tube in situ Neck: trachea midline, no thyromegaly Respiratory: no respiratory distress Auscultation: lungs clear to aus cultation bilaterally Cardiovascular: Rate/Rhythm: regular rate and regular rhythm Heart Sounds: no murmur Extremities: no edema Gastrointestinal (Abdomen): Inspection/Auscultation: + abdomen distended; + abnormal bowel sounds (Decreased) Percussion/Palpation: + abdomen tender and abdomen soft Musculoskeletal: Right mainly in the ankle without any acute inflamed joint Neurologic: Alert, awake and oriented x3 Psychiatric: A+Ox3, euthymic affect Lymphatic: no cervical or axillary lymphadenopathy Results & Data Results & Data ([facility]) Vital Signs (Past 12 Hours) Vital Signs Temp Pulse Pulse Resp BP BP Pulse Ox 08/12/20 08:51 36.8 C 103 H 20 156/67 H 92 08/12/20 06:38 36.8 C 101 H 16 173/80 H 94 08/12/20 04:34 36.9 C 93 H 20 167/77 H 94 08/11/20 23:37 36.9 C 98 H 20 142/74 H 93 Laboratory Results Short CBC 08/12/20 Range/Units 06:03 WBC 12.25 H (4.8-10.8) K/uL Hgb 13.2 (12.0-16.0) g/dL Hct 38.3 (37-47) % Plt Count 178 (130-400) K/uL BMP 08/12/20 06:03 Sodium 139 Potassium 4.2 Chloride 109 H Carbon Dioxide 26 BUN 13 D Creatinine 0.99 Glucose 139 H Calcium 7.9 L Medications Administered Current Inpatient Medications Acetaminophen (Acetaminophen 325 Mg Tab) 650 mg PO Q4H PRN PRN Reason: pain/fever Stop: 09/07/20 10:16 Last Admin: 08/10/20 06:02 Dose: 650 mg Documented by: Amitriptyline HCl (Amitriptyline Hcl 25 Mg Tab) 25 mg PO HS [facility] Stop: 09/07/20 20:59 Last Admin: 08/11/20 21:29 Dose: 25 mg Documented by: Bupropion HCl (Bupropion Sr 150 Mg Tabcr) 150 mg PO BID [facility] Stop: 09/07/20 10:16 Last Admin: 08/12/20 08:48 Dose: Not Given Documented by: Dextrose (Dextrose 50% 50 Ml Syringe) 25 - 50 ml IV UD PRN; Protocol PRN Reason: Hypoglycemia Protocol Stop: 09/07/20 10:44 Glucagon (Glucagon For Inj 1 Mg Vial) 1 mg IM UD PRN; Protocol PRN Reason: Hypoglycemia Protocol Stop: 09/07/20 10:44 Glucose (Glucose 40% Gel 15 Gm Tube) 15 - 30 gm PO UD PRN; Protocol PRN Reason: Hypoglycemia Protocol Stop: 09/07/20 10:44 Glucose (Glucose 10 Tabs/Tube) 4 - 8 tabs PO UD PRN; Protocol PRN Reason: Hypoglycemia Protocol Stop: 09/07/20 10:44 Heparin Sodium (Porcine) (Heparin Sod 5,000 Unit/0.5 Ml Vial) 5,000 units SQ Q12 [facility]EPH[facility]IE Stop: 09/08/20 20:59 Last Admin: 08/12/20 08:48 Dose: 5,000 units Documented by: Hydralazine HCl (Hydralazine Hcl 20 Mg/Ml Vial) 5 mg IV Q6H PRN PRN Reason: Hypertension Stop: 09/07/20 10:16 Last Admin: 08/10/20 12:53 Dose: 5 mg Documented by: Hydralazine HCl (Hydralazine Hcl 20 Mg/Ml Vial) 10 mg IV Q6H ESTEPH[facility]IE Stop: 09/09/20 12:59 Last Admin: 08/12/20 06:40 Dose: 10 mg Documented by: Hydromorphone HCl (Hydromorphone Inj 0.5 Mg/0.5 Ml Syr) 0.5 mg IV Q3H PRN PRN Reason: Pain Stop: 08/22/20 10:16 Last Admin: 08/12/20 09:41 Dose: 0.5 mg Documented by: Dextrose/Sodium Chloride (D5w And Nss) 1,000 mls @ 125 mls/hr IV .Q8H [facility] Stop: 09/07/20 10:16 Last Admin: 08/12/20 03:17 Dose: 125 mls/hr Documented by: Insulin Aspart (Insulin Aspart 100 Units/Ml 3 Ml Pen) 0 units SC Q6 [facility]EPHANIE Stop: 09/07/20 11:59 Last Admin: 08/12/20 06:05 Dose: Not Given Documented by: Miscellaneous (Carbohydrates For Hypoglycemia ) 15 - 30 gm PO UD PRN PRN Reason: Hypoglycemia Treatment Stop: 09/07/20 10:44 Ondansetron HCl (Ondansetron Inj 2 Mg/Ml 2 Ml Vial) 4 mg IV Q6H PRN PRN Reason: Nausea Stop: 09/07/20 10:16 Last Admin: 08/10/20 12:53 Dose: 4 mg Documented by: Pantoprazole Sodium (Pantoprazole 40 Mg Tab) 40 mg PO BID [facility] Stop: 09/07/20 10:16 Last Admin: 08/12/20 08:48 Dose: Not Given Documented by: Pramipexole Dihydrochloride (Pramipexole Dihydrochlo 0.5 Mg Tab) 0.5 mg PO HS [facility] Stop: 09/07/20 20:59 Last Admin: 08/11/20 21:30 Dose: 0.5 mg Documented by: Tizanidine HCl (Tizanidine Hcl 4 Mg Tablet) 4 mg PO DAILY PRN PRN Reason: MUSCLE SPASM Stop: 09/07/20 10:16 Last Admin: 08/11/20 07:54 Dose: 4 mg Documented by:
[2020-08-12] MEDS ORDERED: METOPROLOL TARTRATE 1 MG/ML VIAL IV STA (13:29)
[2020-08-12] MEDS ORDERED: STAT IV Infusion **Titration per Protocol STA (14:06)
[2020-08-12] MEDS ORDERED: dilTIAZem HCL 125 MG in DEXTROSE 5% 100 ML IV SCH (14:15)
[2020-08-12] MEDS: HEPARIN SODIUM/DEXTROSE 25,000 UNITS/500 ML BAG IV SCH (14:53)
[2020-08-12] MEDS: Heparin IV Adult Wt-Based Low-Dose *NO* Bolus Protocol IV SCH ×3 (15:15→15:16)
--- NOTE | 2020-08-12 16:20 | Cardiology Consultation ---
Date of Consultation August 12, 2020 Assessment & Plan (1) Atrial fibrillation with rapid ventricular response: (2) Partial small bowel obstruction: (3) COVID-19 virus infection: (4) Obstructive sleep apnea: (5) Hypertension: Asymptomatic atrial fibrillation with rapid ventricular response. [id number] score of 4 Patient was started on heparin and Cardizem drips as per my recommendations. We will also start metoprolol 25 mg p.o. every 6 hours for further rate control. Discussion regarding long-term anticoagulation will need to be had with the patient prior to discharge. Since she was documented to be in normal sinus rhythm and anticoagulation was started within the last few hours of the onset of atrial fibrillation consideration could be given to chemical cardioversion We will continue to monitor on telemetry for her response to the above medication regimen. History of Present Illness Reason for Consultation: New onset atrial fibrillation with rapid ventricular response Requesting Physician: Dr. Plasencia Attending Physician: Dilia Plasencia MD History of Present Illness The patient is a 74-year-old woman who presented to [facility] on 08/08/2020 with complaints of abdominal pain. Upon presentation she was COVID-19 positive. She was found to have a partial small bowel obstruction and underwent laparotomy. She reportedly denied any cardiac complaints at the time of her presentation denying any chest pain, shortness of breath, palpitations, lightheadedness, dizziness or syncope. In the a.m. of 08/12/2020 patient spontaneously went into atrial fibrillation with rapid ventricular response. She denied any symptoms at that time. She was transferred to telemetry and started on Cardizem and heparin drips. Cardiac consultation performed through review of medical records along with discussion with primary team and nursing staff. In order to limit exposure to medical personnel given the current pandemic I did not personally examine her. Allergies Allergy/AdvReac Type Severity Reaction Status Date / Time indomethacin Allergy Mild rash Verified 08/08/20 05:26 meclizine Allergy Mild RASH Verified 08/08/20 05:26 naproxen Allergy Mild RASH Verified 08/08/20 05:26 Penicillins AdvReac Mild RASH Verified 08/08/20 05:26 Home Medications Medication Instructions Recorded Confirmed Type adalimumab [Humira Pen] 40 mg SUBCUT .Q2WK 08/08/20 08/08/20 History amitriptyline 25 mg PO HS 08/08/20 08/08/20 History atorvastatin 80 mg PO QPM 08/08/20 08/08/20 History bupropion HCl 150 mg PO BID 08/08/20 08/08/20 History lisinopril 20 mg PO QAM 08/08/20 08/08/20 History multivitamin 1 tab PO QAM 08/08/20 08/08/20 History pantoprazole 40 mg PO BID 08/08/20 08/08/20 History pramipexole 0.5 mg PO HS 08/08/20 08/08/20 History tizanidine 4 mg PO DIRECTED PRN 08/08/20 08/08/20 History tramadol 50 mg PO BID 08/08/20 08/08/20 History Patient History Medical History Manzo's esophagus COVID-19 virus infection Hypertension Obstructive sleep apnea Partial small bowel obstruction Restless leg syndrome Social History Smoking Status: Never smoker Hx Alcohol Use: No Hx Substance Use: No Preferred Language: Maori Communication Ability: Effective 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) Vital Signs (Past 12 Hours) Vital Signs Temp Pulse Pulse Pulse Resp BP BP 08/12/20 16:00 138 H 08/12/20 15:15 137 H 08/12/20 15:00 128 H 111/82 08/12/20 14:45 126 H 133/69 08/12/20 14:30 119 H 133/69 08/12/20 14:15 129 H 147/84 H 08/12/20 14:06 157 H 145/82 H 08/12/20 14:00 36.8 C 157 H 16 145/82 H 08/12/20 13:11 160 H 20 117/77 08/12/20 08:51 36.8 C 103 H 20 156/67 H 08/12/20 06:38 36.8 C 101 H 16 08/12/20 04:34 36.9 C 93 H 20 BP Pulse Ox 08/12/20 16:00 155/89 H 08/12/20 15:15 146/81 H 08/12/20 15:00 08/12/20 14:45 08/12/20 14:30 08/12/20 14:15 08/12/20 14:06 08/12/20 14:00 92 08/12/20 13:11 92 08/12/20 08:51 92 08/12/20 06:38 173/80 H 94 08/12/20 04:34 167/77 H 94
--- NOTE | 2020-08-12 16:23 | Electrocardiogram Report ---
Test Reason : Blood Pressure : / mmHG Vent. Rate : 160 BPM Atrial Rate : 170 BPM P-R Int : 000 ms QRS Dur : 078 ms QT Int : 282 ms P-R-T Axes : 000 -07 132 degrees QTc Int : 460 ms Atrial fibrillation with rapid ventricular response with premature ventricular or aberrantly conducte d complexes Poor R wave progression, consider anterior AL vs. lead placement vs. LVH Abnormal ECG When compared with ECG of 08-AUG-2020 04:26, Atrial fibrillation has replaced Sinus rhythm Vent. rate has increased BY 84 BPM Confirmed by Jeovanny Gomez ([id number]) on 08/12/2020 4:22:43 PM Referred By: REFERRED SELF Confirmed By:Teo Gomez
[2020-08-12 22:03] LABS: Partial Thromboplastin Ratio 1.4; Partial Thromboplastin Time 37.3 Seconds (21.0-31.0)
[2020-08-12] MEDS: PRAMIPEXOLE DIHYDROCHLO 0.5 MG TAB PO SCH (22:23)
[2020-08-12] MEDS: AMITRIPTYLINE HCL 25 MG TAB PO SCH (22:24)
[2020-08-12] MEDS ORDERED: HEPARIN IV BOLUS 3,000 UNITS in SYRINGE 0 ML IV ONE (23:30)
[2020-08-13] MEDS: INSULIN ASPART 100 UNITS/ML 3 ML PEN SC SCH ×4 (00:08→19:01)
[2020-08-13] MEDS: HYDROmorphone INJ 0.5 MG/0.5 ML SYR IV PRN ×4 (03:21→21:22)
[2020-08-13] MEDS: D5W AND NSS 1,000 ML IV SCH ×3 (06:29→23:58)
[2020-08-13 06:57] LABS: Basophils # (auto) 0.01 K/uL (0-0.2); Basophils % (auto) 0.1 %; Eosinophils # (auto) 0.09 K/uL (0-0.5); Eosinophils % (auto) 0.8 %; Hematocrit (blood only) 32.2 % (37-47); Hemoglobin 11.2 g/dL (12.0-16.0); Immature Granulocytes # (auto) 0.04 K/uL (0.00-0.02); Immature Granulocytes % (auto) 0.3 %; Lymphocytes # (auto) 1.42 K/uL (1.2-3.4); Lymphocytes % (auto) 11.9 %; Mean Corpuscular Hemoglobin 32.5 pg (25-34); Mean Corpuscular Hgb Conc 34.8 g/dL (32-36); Mean Corpuscular Volume 93.3 fL (80-100); Mean Platelet Volume 10.4 fL (7.4-10.4); Monocytes # (auto) 1.44 K/uL (0.11-0.59); Monocytes % (auto) 12.1 %; Neutrophils # (auto) 8.89 K/uL (1.4-6.5); Neutrophils % (auto) 74.8 %; Platelet Count 167 K/uL (130-400); RDW Coefficient of Variation 13.7 % (11.5-14.5); RDW Standard Deviation 47.2 fL (36.4-46.3); Red Blood Count 3.45 M/uL (4.2-5.4); White Blood Count 11.89 K/uL (4.8-10.8)
[2020-08-13 07:32] LABS: Partial Thromboplastin Ratio 1.8
[2020-08-13 07:33] LABS: BUN Creatinine Ratio 18.5 (10-20); Calcium 7.9 mg/dl (8.5-10.1); Creatinine Clr Calc Pharmacy 70.4 ml/min; Est GFR (African American) 94.3; Est GFR (Non-African American) 81.3; Potassium 3.9 mmol/L (3.5-5.1)
[2020-08-13 08:06] LABS: Partial Thromboplastin Time 48.6 Seconds (21.0-31.0)
--- NOTE | 2020-08-13 09:33 | Surgery Progress Note ---
Date of Service August 13, 2020 Assessment & Plan (1) Partial small bowel obstruction: 74 yo female POD#2 Ex lap, DON for closed loop SBO -Still without any bowel function, NGT is bilious -Continue NGT/NPO -Encourage ambulation -D/C Gardner today -Continue to replace/normalize electrolytes PRN -If has not had any return of bowel function, will need PICC/TPN in next 2-3 days Admission and Anticipated Discharge Date Admission Date: August 08, 2020 Subjective Pt seen and examined. Afebrile. Went into Afib with RVR yesterday, now in NSR. No flatus or BM. No N/V. Physical Exam Constitutional: WD/WN, vitals as above Gastrointestinal (Abdomen): Inspection/Auscultation: + abdomen distended Percussion/Palpation: + abdomen tender (appropriately ) and abdomen soft Dressing c/d/i Results & Data ([facility]) Vital Signs (Past 12 Hours) Vital Signs Temp Pulse Pulse Pulse Resp BP BP 08/13/20 08:15 36.9 C 96 H 20 176/74 H 08/13/20 03:22 36.6 C 88 22 162/78 H 08/13/20 00:00 87 08/12/20 23:58 36.8 C 87 18 165/80 H Pulse Ox 08/13/20 08:15 94 08/13/20 03:22 94 08/13/20 00:00 08/12/20 23:58 94 PG Care Time/CCT Total # of Minutes Spent Total Time Spent with Patient: Total time spent is greater than 50% in coordination of care (as documented) at patient's floor/unit and/or counseling patient: Coding Level of Care Code None Diagnoses Partial small bowel obstruction K56.600
[2020-08-13] MEDS: buPROPion HCl 75 MG TABLET NG SCH ×3 (09:43→22:34)
[2020-08-13] MEDS: PANTOprazole 40 MG in SYRINGE 0 ML IV SCH ×2 (09:44→22:35)
[2020-08-13] MEDS: METOPROLOL TARTRATE 1 MG/ML VIAL IV SCH ×2 (12:22→18:35)
--- NOTE | 2020-08-13 14:25 | Electrocardiogram Report ---
Test Reason : Blood Pressure : / mmHG Vent. Rate : 089 BPM Atrial Rate : 089 BPM P-R Int : 146 ms QRS Dur : 078 ms QT Int : 348 ms P-R-T Axes : 021 -09 082 degrees QTc Int : 423 ms Normal sinus rhythm Nonspecific ST abnormality When compared with ECG of 12-AUG-2020 13:06, Sinus rhythm has replaced Atrial fibrillation Vent. rate has decreased BY 71 BPM Confirmed by Jeovanny Gomez ([id number]) on 08/13/2020 2:25:10 PM Referred By: REFERRED SELF Confirmed By:Teo Gomez
[2020-08-13] MEDS: HEPARIN SODIUM/DEXTROSE 25,000 UNITS/500 ML BAG IV SCH (14:41)
[2020-08-13] MEDS: hydrALAZINE HCL 20 MG/ML VIAL IV PRN (14:47)
[2020-08-13] MEDS ORDERED: NITROGLYCERIN 2% OINTMENT 30GM TUBE EXT STA (15:28)
[2020-08-13] MEDS ORDERED: METOPROLOL TARTRATE 1 MG/ML VIAL IV STA (15:28)
[2020-08-13] MEDS ORDERED: methylPREDNISolone 40 MG in SYRINGE 0 ML IV ONE (15:45)
--- NOTE | 2020-08-13 16:09 | XRay Report ---
XR chest 1V portable HISTORY: Shortness of breath. COMPARISON: 08/09/2020. FINDINGS: There is diffuse interstitial/vascular thickening which has progressed. There are trace eula ateral pleural effusions. The heart remains mildly enlarged. Old, healed left-sided rib fractures aga in noted. Nasogastric tube terminates below the diaphragm. The tip is not included on this study. No pneumothorax. Left basilar density persists and may represent atelectasis. IMPRESSION: 1. Interval progression of the mild interstitial pulmonary edema and trace bilateral pleural effusion s. 2. Persistent left basilar density which may represent atelectasis. 3. Nasogastric tube terminates below the diaphragm. ACT 112: Negative or not required by law. Electronically signed by: Sushil Zambrano M.D. 08/13/2020 4:08 PM
--- NOTE | 2020-08-13 16:29 | Hospitalist Progress Note ---
Date of Service August 13, 2020 Assessment & Plan (1) Partial small bowel obstruction: Has history of cholecystectomy and hysterectomy No history of SBO before Admitted with abdominal pain and nausea noted to have small bowel obstruction on CAT scan Has been kept on n.p.o., IV fluids and pain medications Appreciate surgery input and recommendation She has now NG tube placement for decompression Condition deteriorated with increasing abdominal distention and pain We will continue NGT suction for now and keep her n.p.o. No bowel sounds and no passing of gas and a bowel movement Will continue NG tube suction as per surgery-May need TPN/PPN if there is no improvement within the next day or 2 Exploratory laparotomy with lysis of ideations, Status post exploratory laparotomy and lysis of adhesions on 08/11/2020 Remains drowsy and bowel sound is very sluggish Bowel is not moved yet and she is not passing gas We will continue NG tube suction as for now Mandy zuniga with RVR Developed atrial fibrillation day before yesterday Has been on IV Lopressor and intravenous heparin Received Cardizem drip and reverted to sinus rhythm We will monitor Appreciate cardiology input and recommendation Gout Noted to have acute gouty pain Was on oral colchicine Cannot take any NSAID's due to allergies We will try single dose of intravenous Solu-Medrol at 20 mg Can start oral colchicine as soon as she starts taking food orally Foot pain is worse today and will give another dose of Solu-Medrol 20 mg IV Seems to be gout is flaring up will give Solu-Medrol x1 dose of 40 mg today (2) COVID-19 virus infection: Is a status post first dose of Covid vaccine recently Noted to be Covid positive but does not have any symptoms Saturating normally on room air Denies any respiratory symptoms and saturating well on room air Has been on 3 L of nasal cannula oxygen following surgery Minimal cough but no other symptoms We will get chest x-ray to rule out any CVS and/or progressive pneumonia (3) Hypertension: Remains on the upper side of normal Blood pressure noted to be very high Has been on Lopressor 5 mg every 6 hourly Will add hydralazine as needed, Nitropaste has been added (4) Manzo's esophagus: Continue PPI (5) Obstructive sleep apnea: No acute symptoms (6) Restless leg syndrome: Continue current medication DVT prophylaxis We will start subcu heparin Discussed with the son and the on 08/10/2020 Admission and Anticipated Discharge Date Admission Date: August 08, 2020 Subjective 08/09/2020 The patient was seen and examined in medical floor She was admitted yesterday with SBO and COVID-19 virus infection without any significant respiratory symptoms She required NG tube placement by surgery this morning Complains of abdominal pain without any nausea and/or vomiting 08/10/2020 The patient was seen and examined in medical floor She has more abdominal distention with pain and her bowel is not moved yet She will require to have NG suction as planned Denies any shortness of breath and has been saturating well with room air 08/11/2020 The patient was seen and examined in medical floor She is a status post exploratory laparotomy and lysis of adhesions She remains very drowsy and the pain seems to be reasonably controlled 08/12/2020 The patient was seen and examined in medical floor She is a status post exploratory laparotomy, POD #1 She complains of abdominal pain and right foot pain likely due to gout Denies any increase in shortness of breath Has not had any bowel movement or any passing of gas 08/13/2020 The patient was seen and examined in telemetry unit She is back to sinus rhythm since last night She was noted to have very high blood pressure of systolic 200 Complains Of Right Ankle Pain Likely Secondary to Gout Nitropaste was given and also received a dose of intravenous hydralazine Has not passed any gas and or bowel movement Review of Systems Review of Systems: All systems reviewed and are unremarkable except as noted below Gastrointestinal: + abdominal pain and + bloating; no nausea and no vomiting Physical Exam Physical Exam: Lying in bed with some distress Constitutional: well developed, well nourished, + acute distress (Status post laparotomy with lysis of adhesions this morning) and + ill appearing Eyes: PERRL, conjunctivae normal, anicteric sclerae ENMT: external ear and nose normal, oropharynx normal Neck: trachea midline, no thyromegaly Respiratory: no respiratory distress Auscultation: lungs clear to auscultation bilaterally Cardiovascular: Rate/Rhythm: regular rate and regular rhythm Heart Sounds: no murmur Extremities: no edema Gastrointestinal (Abdomen): Inspection/Auscultation: + abdomen distended; + abnormal bowel sounds (Decreased) Percussion/Palpation: + abdomen tender and abdomen soft Musculoskeletal: Right ankle is swollen with increased local temperature and tenderness. Painful with movement Psychiatric: A+Ox3, euthymic affect Lymphatic: no cervical or axillary lymphadenopathy Results & Data Results & Data ([facility]) Vital Signs (Past 12 Hours) Vital Signs Temp Pulse Pulse Pulse Resp BP BP 08/13/20 16:00 104 H 204/97 H 08/13/20 15:50 95 H 32 H 174/96 H 08/13/20 15:45 103 H 203/113 H 08/13/20 15:30 104 H 26 H 211/85 H 08/13/20 15:25 118 H 206/77 H 08/13/20 15:18 116 H 26 H 222/85 H 08/13/20 14:46 104 H 206/91 H 08/13/20 12:45 88 157/78 H 08/13/20 12:22 96 H 08/13/20 11:23 37.0 C 95 H 20 178/73 H 08/13/20 08:15 36.9 C 96 H 20 176/74 H 08/13/20 08:00 89 Pulse Ox 08/13/20 16:00 08/13/20 15:50 93 08/13/20 15:45 93 08/13/20 15:30 92 08/13/20 15:25 92 08/13/20 15:18 95 08/13/20 14:46 08/13/20 12:45 08/13/20 12:22 08/13/20 11:23 95 08/13/20 08:15 94 08/13/20 08:00 Laboratory Results Short CBC 08/13/20 Range/Units 06:10 WBC 11.89 H (4.8-10.8) K/uL Hgb 11.2 L (12.0-16.0) g/dL Hct 32.2 L (37-47) % Plt Count 167 (130-400) K/uL BMP 08/13/20 06:10 Sodium 143 Potassium 3.9 Chloride 113 H Carbon Dioxide 25 BUN 13 Creatinine 0.72 Glucose 142 H Calcium 7.9 L Medications Administered Current Inpatient Medications Acetaminophen (Acetaminophen 325 Mg Tab) 650 mg PO Q4H PRN PRN Reason: pain/fever Stop: 09/07/20 10:16 Last Admin: 08/10/20 06:02 Dose: 650 mg Documented by: Amitriptyline HCl (Amitriptyline Hcl 25 Mg Tab) 25 mg PO [facility] Stop: 09/07/20 20:59 Last Admin: 08/12/20 22:24 Dose: 25 mg Documented by: Bupropion HCl (Bupropion Hcl 75 Mg Tablet) 75 mg NG Q6H ESTEPHANIE Stop: 09/12/20 08:59 Last Admin: 08/13/20 14:38 Dose: 75 mg Documented by: Dextrose (Dextrose 50% 50 Ml Syringe) 25 - 50 ml IV UD PRN; Protocol PRN Reason: Hypoglycemia Protocol Stop: 09/07/20 10:44 Glucagon (Glucagon For Inj 1 Mg Vial) 1 mg IM UD PRN; Protocol PRN Reason: Hypoglycemia Protocol Stop: 09/07/20 10:44 Glucose (Glucose 40% Gel 15 Gm Tube) 15 - 30 gm PO UD PRN; Protocol PRN Reason: Hypoglycemia Protocol Stop: 09/07/20 10:44 Glucose (Glucose 10 Tabs/Tube) 4 - 8 tabs PO UD PRN; Protocol PRN Reason: Hypoglycemia Protocol Stop: 09/07/20 10:44 Heparin Sodium (Porcine) (Heparin Sod 5,000 Unit/0.5 Ml Vial) 5,000 units SQ Q12 ESTEPHANIE Stop: 09/08/20 20:59 Last Admin: 08/12/20 08:48 Dose: 5,000 units Documented by: Hydralazine HCl (Hydralazine Hcl 20 Mg/Ml Vial) 5 mg IV Q6H PRN PRN Reason: Hypertension Stop: 09/07/20 10:16 Last Admin: 08/13/20 14:47 Dose: 5 mg Documented by: Hydromorphone HCl (Hydromorphone Inj 0.5 Mg/0.5 Ml Syr) 0.5 mg IV Q3H PRN PRN Reason: Pain Stop: 08/22/20 10:16 Last Admin: 08/13/20 09:44 Dose: 0.5 mg Documented by: Dextrose/Sodium Chloride (D5w And Nss) 1,000 mls @ 125 mls/hr IV .Q8H ESTEPHANIE Stop: 09/07/20 10:16 Last Admin: 08/13/20 12:30 Dose: 125 mls/hr Documented by: Heparin Sodium/Dextrose (Heparin Sodium/Dextrose) 25,000 units in 500 mls @ 19 mls/hr IV .Q24H ESTEPHANIE; Protocol Stop: 09/11/20 14:14 Last Titration: 08/13/20 09:30 Dose: 950 units/hr, 19 mls/hr Documented by: Pantoprazole Sodium 40 mg/ (Syringe) 10 mls @ 5 mls/min IV BID@0900,2100 [facility] Stop: 09/12/20 08:59 Last Admin: 08/13/20 09:44 Dose: 5 mls/min Documented by: Insulin Aspart (Insulin Aspart 100 Units/Ml 3 Ml Pen) 0 units SC Q6 [facility] Stop: 09/07/20 11:59 Last Admin: 08/13/20 12:30 Dose: Not Given Documented by: Metoprolol Tartrate (Metoprolol Tartrate 1 Mg/Ml Vial) 5 mg IV Q6 [facility] Stop: 09/12/20 11:59 Last Admin: 08/13/20 12:22 Dose: 5 mg Documented by: Miscellaneous (Carbohydrates For Hypoglycemia ) 15 - 30 gm PO UD PRN PRN Reason: Hypoglycemia Treatment Stop: 09/07/20 10:44 Ondansetron HCl (Ondansetron Inj 2 Mg/Ml 2 Ml Vial) 4 mg IV Q6H PRN PRN Reason: Nausea Stop: 09/07/20 10:16 Last Admin: 08/10/20 12:53 Dose: 4 mg Documented by: Pramipexole Dihydrochloride (Pramipexole Dihydrochlo 0.5 Mg Tab) 0.5 mg PO HS [facility] Stop: 09/07/20 20:59 Last Admin: 08/12/20 22:23 Dose: 0.5 mg Documented by: Tizanidine HCl (Tizanidine Hcl 4 Mg Tablet) 4 mg PO DAILY PRN PRN Reason: MUSCLE SPASM Stop: 09/07/20 10:16 Last Admin: 08/11/20 07:54 Dose: 4 mg Documented by:
[2020-08-13] MEDS ORDERED: FUROSEMIDE 40 MG in SYRINGE 0 ML IV ONE (17:00)
[2020-08-13] MEDS ORDERED: hydrALAZINE HCL 20 MG/ML VIAL IV STA (17:33)
[2020-08-13] MEDS ORDERED: LORazepam 0.25 MG/0.5 ML VIAL IV ONE (18:05)
[2020-08-13] MEDS: metroNIDAZOLE 500 MG/100 ML BAG IV SCH (20:01)
[2020-08-13] MEDS: CIPROFLOXACIN / D5W 400 MG/200 ML BAG IV SCH (21:21)
[2020-08-13] MEDS: PRAMIPEXOLE DIHYDROCHLO 0.5 MG TAB PO SCH (22:35)
[2020-08-13] MEDS: AMITRIPTYLINE HCL 25 MG TAB PO SCH (22:35)
[2020-08-13] MEDS: NITROGLYCERIN 2% OINTMENT 30GM TUBE EXT SCH (22:54)
[2020-08-14] MEDS: INSULIN ASPART 100 UNITS/ML 3 ML PEN SC SCH ×4 (00:09→17:14)
[2020-08-14] MEDS: METOPROLOL TARTRATE 1 MG/ML VIAL IV SCH ×4 (00:10→17:06)
[2020-08-14] MEDS: HYDROmorphone INJ 0.5 MG/0.5 ML SYR IV PRN ×5 (02:39→20:08)
[2020-08-14] MEDS: metroNIDAZOLE 500 MG/100 ML BAG IV SCH ×3 (02:40→18:12)
[2020-08-14] MEDS: buPROPion HCl 75 MG TABLET NG SCH ×4 (04:05→20:18)
[2020-08-14] MEDS: NITROGLYCERIN 2% OINTMENT 30GM TUBE EXT SCH ×3 (04:05→14:57)
[2020-08-14] MEDS: CIPROFLOXACIN / D5W 400 MG/200 ML BAG IV SCH ×2 (06:27→18:12)
[2020-08-14 07:32] LABS: Basophils # (auto) 0.01 K/uL (0-0.2); Basophils % (auto) 0.1 %; Hematocrit (blood only) 28.4 % (37-47); Hemoglobin 9.9 g/dL (12.0-16.0); Immature Granulocytes # (auto) 0.05 K/uL (0.00-0.02); Immature Granulocytes % (auto) 0.4 %; Lymphocytes # (auto) 0.98 K/uL (1.2-3.4); Mean Corpuscular Hgb Conc 34.9 g/dL (32-36); Mean Corpuscular Volume 91.9 fL (80-100); Monocytes # (auto) 0.81 K/uL (0.11-0.59); Monocytes % (auto) 6.6 %; Neutrophils # (auto) 10.43 K/uL (1.4-6.5); Neutrophils % (auto) 84.9 %; Platelet Count 170 K/uL (130-400); RDW Coefficient of Variation 13.5 % (11.5-14.5); RDW Standard Deviation 45.6 fL (36.4-46.3); Red Blood Count 3.09 M/uL (4.2-5.4); White Blood Count 12.28 K/uL (4.8-10.8)
[2020-08-14 07:41] LABS: Partial Thromboplastin Ratio 1.7; Partial Thromboplastin Time 43.7 Seconds (21.0-31.0)
[2020-08-14 08:08] LABS: BUN Creatinine Ratio 20.6 (10-20); Calcium 8.2 mg/dl (8.5-10.1); Creatinine Clr Calc Pharmacy 68.4 ml/min; Est GFR (African American) 91.2; Est GFR (Non-African American) 78.7; Phosphorus 2.7 mg/dl (2.5-4.9); Potassium 3.3 mmol/L (3.5-5.1)
[2020-08-14] MEDS: D5W AND NSS 1,000 ML IV SCH (08:58)
[2020-08-14] MEDS: PANTOprazole 40 MG in SYRINGE 0 ML IV SCH ×2 (09:00→22:41)
--- NOTE | 2020-08-14 12:32 | Surgery Progress Note ---
Date of Service August 14, 2020 Assessment & Plan (1) Partial small bowel obstruction: 74 yo female POD#3 Ex lap, DON for closed loop SBO -Still without any bowel function, NGT remains slightly bilious, only 200mls overnight -Overall her abdominal distension is improved and having less abdominal pain -Continue NGT/NPO -Encourage ambulation -Will start IV Tylenol to help with pain in feet -Continue to replace/normalize electrolytes PRN, will switch to K+ containing fluids -If has not had any return of bowel function, will need PICC/TPN tomorrow Admission and Anticipated Discharge Date Admission Date: August 08, 2020 Subjective Pt seen and examined. Remains in NSR. No flatus or BM. No N/V. Pain is slightly improved. Had a low grade fever yesterday. Physical Exam Constitutional: WD/WN, vitals as above Gastrointestinal (Abdomen): Inspection/Auscultation: + abdomen distended Percussion/Palpation: + abdomen tender (appropriately ) and abdomen soft Incision with jesús, no erythema or drainage Results & Data ([facility]) Vital Signs (Past 12 Hours) Vital Signs Temp Pulse Pulse Resp BP BP BP 08/14/20 11:24 78 166/78 H 08/14/20 11:08 36.8 C 78 19 166/78 H 08/14/20 07:19 36.5 C 67 18 149/70 H 08/14/20 06:26 74 153/71 H 08/14/20 03:27 83 08/14/20 02:27 36.7 C 81 18 150/82 H Pulse Ox 08/14/20 11:24 08/14/20 11:08 94 08/14/20 07:19 96 08/14/20 06:26 08/14/20 03:27 08/14/20 02:27 93 PG Care Time/CCT Total # of Minutes Spent Total Time Spent with Patient: Total time spent is greater than 50% in coordination of care (as documented) at patient's floor/unit and/or counseling patient: Coding Level of Care Code None Diagnoses Partial small bowel obstruction K56.600
[2020-08-14] MEDS: D5W AND 1/2NSS + 20MEQ KCL 20 MEQ/1,000 ML BAG IV SCH ×2 (12:38→22:41)
--- NOTE | 2020-08-14 12:57 | Electrocardiogram Report ---
Test Reason : Blood Pressure : / mmHG Vent. Rate : 091 BPM Atrial Rate : 091 BPM P-R Int : 144 ms QRS Dur : 080 ms QT Int : 368 ms P-R-T Axes : 037 -03 106 degrees QTc Int : 452 ms Sinus rhythm with PAC Abnormal ECG When compared with ECG of 12-AUG-2020 16:37, No significant change was found Confirmed by Jeovanny Gomez ([id number]) on 08/14/2020 12:57:26 PM Referred By: REFERRED SELF Confirmed By:Teo Gomez
[2020-08-14] MEDS: ACETAMINOPHEN 1,000 MG/100 ML VIAL IV SCH ×2 (13:00→20:02)
[2020-08-14] MEDS ORDERED: COLCHICINE 0.6 MG TAB PO ONE (13:47)
[2020-08-14] MEDS ORDERED: lisinopril 20 MG TAB PO STA (13:58)
--- NOTE | 2020-08-14 13:58 | Hospitalist Progress Note ---
Date of Service August 14, 2020 Assessment & Plan (1) Partial small bowel obstruction: Has history of cholecystectomy and hysterectomy No history of SBO before Admitted with abdominal pain and nausea noted to have small bowel obstruction on CAT scan Has been kept on n.p.o., IV fluids and pain medications Appreciate surgery input and recommendation She has now NG tube placement for decompression Condition deteriorated with increasing abdominal distention and pain We will continue NGT suction for now and keep her n.p.o. No bowel sounds and no passing of gas and a bowel movement Will continue NG tube suction as per surgery-May need TPN/PPN if there is no improvement within the next day or 2 Bowel sounds seems to be improved but bowel antiviral medication has not moved yet and no gases passed We will continue current management Exploratory laparotomy with lysis of ideations, Status post exploratory laparotomy and lysis of adhesions on 08/11/2020 Remains drowsy and bowel sound is very sluggish Bowel is not moved yet and she is not passing gas We will continue NG tube suction as for now Mandy zuniga with RVR Developed atrial fibrillation day before yesterday Has been on IV Lopressor and intravenous heparin Received Cardizem drip and reverted to sinus rhythm We will monitor Appreciate cardiology input and recommendation Back in sinus rhythm since day before yesterday Discontinue IV heparin and put her on heparin subcu Gout Noted to have acute gouty pain Was on oral colchicine Cannot take any NSAID's due to allergies We will try single dose of intravenous Solu-Medrol at 20 mg Can start oral colchicine as soon as she starts taking food orally Foot pain is worse today and will give another dose of Solu-Medrol 20 mg IV Seems to be gout is flaring up will give Solu-Medrol x1 dose of 40 mg today Will not give any more on Solu-Medrol We will try colchicine 0.3 mg twice daily through the NG tube-very reducing doses secondary to drug interaction with Cipro (2) COVID-19 virus infection: Is a status post first dose of Covid vaccine recently Noted to be Covid positive but does not have any symptoms Saturating normally on room air Denies any respiratory symptoms and saturating well on room air Has been on 3 L of nasal cannula oxygen following surgery Minimal cough but no other symptoms We will get chest x-ray to rule out any CVS and/or progressive pneumonia (3) Hypertension: Remains on the upper side of normal Blood pressure noted to be very high Has been on Lopressor 5 mg every 6 hourly Will add hydralazine as needed, Nitropaste has been added We will add amlodipine 5 mg daily and continue IV Lopressor (4) Manzo's esophagus: Continue PPI (5) Obstructive sleep apnea: No acute symptoms (6) Restless leg syndrome: Continue current medication DVT prophylaxis We will start subcu heparin Discussed with the son and the on 08/10/2020 Admission and Anticipated Discharge Date Admission Date: August 08, 2020 Subjective 08/09/2020 The patient was seen and examined in medical floor She was admitted yesterday with SBO and COVID-19 virus infection without any significant respiratory symptoms She required NG tube placement by surgery this morning Complains of abdominal pain without any nausea and/or vomiting 08/10/2020 The patient was seen and examined in medical floor She has more abdominal distention with pain and her bowel is not moved yet She will require to have NG suction as planned Denies any shortness of breath and has been saturating well with room air 08/11/2020 The patient was seen and examined in medical floor She is a status post exploratory laparotomy and lysis of adhesions She remains very drowsy and the pain seems to be reasonably controlled 08/12/2020 The patient was seen and examined in medical floor She is a status post exploratory laparotomy, POD #1 She complains of abdominal pain and right foot pain likely due to gout Denies any increase in shortness of breath Has not had any bowel movement or any passing of gas 08/13/2020 The patient was seen and examined in telemetry unit She is back to sinus rhythm since last night She was noted to have very high blood pressure of systolic 200 Complains Of Right Ankle Pain Likely Secondary to Gout Nitropaste was given and also received a dose of intravenous hydralazine Has not passed any gas and or bowel movement 08/14/2020 The patient was seen and examined in Covid unit She has been complaining of left ankle pain secondary to flareup of gout She has not moved her bowels or passed any gas Still remains n.p.o. Review of Systems Review of Systems: All systems reviewed and are unremarkable except as noted below Gastrointestinal: + abdominal pain and + bloating; no nausea and no vomiting Physical Exam Physical Exam: Lying in bed with some distress Constitutional: well developed, well nourished, + acute distress (Status post laparotomy with lysis of adhesions this morning) and + ill appearing Eyes: PERRL, conjunctivae normal, anicteric sclerae ENMT: external ear and nose normal, oropharynx normal Neck: trachea midline, no thyromegaly Respiratory: no respiratory distress Auscultation: lungs clear to auscultation bilaterally Cardiovascular: Rate/Rhythm: regular rate and regular rhythm Heart Sounds: no murmur Extremities: no edema Gastrointestinal (Abdomen): Inspection/Auscultation: + abdomen distended; + abnormal bowel sounds (Decreased) Percussion/Palpation: + abdomen tender and abdomen soft Musculoskeletal: Right ankle pain with examination increasing local temperature Neurologic: Alert, awake and oriented x3. Generally weak but no focal sensory or motor deficit appreciated Psychiatric: A+Ox3, euthymic affect Lymphatic: no cervical or axillary lymphadenopathy Results & Data Results & Data ([facility]) Vital Signs (Past 12 Hours) Vital Signs Temp Pulse Pulse Resp BP BP BP 08/14/20 11:24 78 166/78 H 08/14/20 11:08 36.8 C 78 19 166/78 H 08/14/20 07:19 36.5 C 67 18 149/70 H 08/14/20 06:26 74 153/71 H 08/14/20 03:27 83 08/14/20 02:27 36.7 C 81 18 150/82 H Pulse Ox 08/14/20 11:24 08/14/20 11:08 94 08/14/20 07:19 96 08/14/20 06:26 08/14/20 03:27 08/14/20 02:27 93
--- NOTE | 2020-08-14 15:20 | Cardiology Progress Note ---
Date of Service August 14, 2020 Assessment & Plan (1) Atrial fibrillation with rapid ventricular response: (2) Partial small bowel obstruction: (3) COVID-19 virus infection: (4) Obstructive sleep apnea: (5) Hypertension: Asymptomatic atrial fibrillation with rapid ventricular response. [id number] score of 4 Patient was started on heparin and Cardizem drips as per my recommendations. We will also start metoprolol 25 mg p.o. every 6 hours for further rate control. Discussion regarding long-term anticoagulation will need to be had with the patient prior to discharge. Since she was documented to be in normal sinus rhythm and anticoagulation was started within the last few hours of the onset of atrial fibrillation consideration could be given to chemical cardioversion We will continue to monitor on telemetry for her response to the above medication regimen. Admission and Anticipated Discharge Date Admission Date: August 08, 2020 Results & Data ([facility]) Vital Signs (Past 12 Hours) Vital Signs Temp Pulse Pulse Resp BP BP Pulse Ox 08/14/20 11:24 78 166/78 H 08/14/20 11:08 36.8 C 78 19 166/78 H 94 08/14/20 07:19 36.5 C 67 18 149/70 H 96 08/14/20 06:26 74 153/71 H 08/14/20 03:27 83
[2020-08-14 16:50] LABS: Partial Thromboplastin Ratio 1.3; Partial Thromboplastin Time 33.3 Seconds (21.0-31.0)
[2020-08-14] MEDS: PRAMIPEXOLE DIHYDROCHLO 0.5 MG TAB PO SCH (20:18)
[2020-08-14] MEDS: AMITRIPTYLINE HCL 25 MG TAB PO SCH (20:18)
[2020-08-14] MEDS: COLCHICINE 0.6 MG TAB PO SCH (20:18)
[2020-08-14] MEDS: HEPARIN SOD 5,000 UNIT/0.5 ML VIAL SQ SCH (22:41)
[2020-08-15] MEDS: METOPROLOL TARTRATE 1 MG/ML VIAL IV SCH ×5 (00:02→23:16)
[2020-08-15] MEDS: hydrALAZINE HCL 20 MG/ML VIAL IV PRN (00:04)
[2020-08-15] MEDS: HYDROmorphone INJ 0.5 MG/0.5 ML SYR IV PRN ×3 (00:14→19:44)
[2020-08-15] MEDS: INSULIN ASPART 100 UNITS/ML 3 ML PEN SC SCH ×5 (00:43→23:42)
[2020-08-15] MEDS: metroNIDAZOLE 500 MG/100 ML BAG IV SCH ×3 (03:39→19:44)
[2020-08-15] MEDS: ACETAMINOPHEN 1,000 MG/100 ML VIAL IV SCH ×3 (03:40→19:57)
[2020-08-15] MEDS: buPROPion HCl 75 MG TABLET NG SCH ×5 (03:43→20:04)
[2020-08-15] MEDS: CIPROFLOXACIN / D5W 400 MG/200 ML BAG IV SCH ×2 (06:11→19:43)
[2020-08-15 07:52] LABS: Basophils # (auto) 0.01 K/uL (0-0.2); Basophils % (auto) 0.1 %; Eosinophils # (auto) 0.31 K/uL (0-0.5); Eosinophils % (auto) 2.6 %; Hematocrit (blood only) 30.7 % (37-47); Hemoglobin 10.4 g/dL (12.0-16.0); Immature Granulocytes # (auto) 0.05 K/uL (0.00-0.02); Immature Granulocytes % (auto) 0.4 %; Lymphocytes # (auto) 1.49 K/uL (1.2-3.4); Lymphocytes % (auto) 12.6 %; Mean Corpuscular Hemoglobin 31.6 pg (25-34); Mean Corpuscular Hgb Conc 33.9 g/dL (32-36); Mean Corpuscular Volume 93.3 fL (80-100); Mean Platelet Volume 10.6 fL (7.4-10.4); Monocytes # (auto) 1.12 K/uL (0.11-0.59); Monocytes % (auto) 9.5 %; Neutrophils # (auto) 8.86 K/uL (1.4-6.5); Neutrophils % (auto) 74.8 %; Platelet Count 198 K/uL (130-400); RDW Coefficient of Variation 13.5 % (11.5-14.5); RDW Standard Deviation 46.4 fL (36.4-46.3); Red Blood Count 3.29 M/uL (4.2-5.4); White Blood Count 11.84 K/uL (4.8-10.8)
[2020-08-15 08:26] LABS: BUN Creatinine Ratio 23.2 (10-20); Calcium 8.1 mg/dl (8.5-10.1); Est GFR (African American) 100.5; Est GFR (Non-African American) 86.7; Potassium 3.1 mmol/L (3.5-5.1)
[2020-08-15] MEDS: D5W AND 1/2NSS + 20MEQ KCL 20 MEQ/1,000 ML BAG IV SCH (08:28)
[2020-08-15] MEDS: PANTOprazole 40 MG in SYRINGE 0 ML IV SCH ×2 (08:28→20:04)
[2020-08-15] MEDS: HEPARIN SOD 5,000 UNIT/0.5 ML VIAL SQ SCH ×2 (08:29→20:03)
[2020-08-15] MEDS ORDERED: bisacodyL 10 MG SUPP PR ONE (09:12)
[2020-08-15] MEDS: POTASSIUM CHLORIDE / WTR 10 MEQ/100 ML PLCT IV SCH ×4 (10:10→12:24)
[2020-08-15] MEDS: COLCHICINE 0.6 MG TAB PO SCH ×2 (10:10→20:03)
[2020-08-15] MEDS: lisinopril 20 MG TAB PO SCH (10:11)
[2020-08-15] MEDS ORDERED: TPN/PPN CONSULT PHARMACY PRN (10:34)
[2020-08-15] MEDS ORDERED: TPN/PPN CONSULT PHARMACY STA (10:42)
--- NOTE | 2020-08-15 10:59 | Pharmacy Report ---
Pharmacy PN Initial Consult - Date of Service August 15, 2020 - Scope Pharmacy has been consulted to manage parenteral nutrition orders and order appropriate labs. As part of the Nutrition Support Team guidelines, pharmacy will work in conjunction with dietary when determining the patients caloric needs. - Subjective The patient is a 74 year old F admitted on 08/08/20 06:49 for ABDOMINAL PAIN. Patient is to receive parenteral nutrition for SBO and prolonged NPO status. Pertinent PMH: * Presented with SBO and underwent exploratory laparotomy on 08/11/20 - Objective Height: 5 ft 3 in Weight: 93 kg Diet: NPO Intake & Output (Last 24Hrs): Intake & Output 08/13/20 08/14/20 08/15/20 08/16/20 06:59 06:59 06:59 06:59 Intake Total 3346.266 / 3346.266 2913.935 / 2913.935 2710.450 / 2710.450 1178.333 / 1178.333 Output Total 675 / 675 400 / 400 960 / 960 Balance 2671.266 / 2671.266 2513.935 / 2513.935 1750.450 / 5361.868 6973.333 / 1178.333 Weight 89 kg 93 kg Laboratory Data (Last 24 Hrs):: 08/15/20 07:30 Sodium 136 Potassium 3.1 L Chloride 104 Carbon Dioxide 27 BUN 15 Creatinine 0.64 Glucose 143 H Calcium 8.1 L Nutrition Assessment:: Please refer to the Notes section of the EMR for the most recent business support assistant note. - Assessment * 74 yo F admitted on 08/08/20 secondary to abdominal pain * CT A/P showed "multiple loops of mildly dilated small bowel with transition point within the right lower quadrant. These findings represent a partial small bowel obstruction" * Tried to manage conservatively but eventually required an exploratory laparotomy on 08/11/20 * She is now POD #4 s/p ex lap, DON for closed loop SBO and there has not been any return of bowel function * Therefore decision was made to start parenteral nutrition * Electrolytes are within normal limits today * PICC line consult ordered. Dietary consult ordered, appreciate their recommendations. * Will order PPN for day #1 as PICC line was not placed in time. Start TPN tomorrow. - Plan For day 1 of PN administration, the following will be ordered: Macronutrients Amino acids 90 grams/day Dextrose 150 grams/day Lipids 0 grams/day Micronutrients Sodium chloride 50 mEq Sodium acetate 50 mEq Potassium phosphate 30 mMol Potassium chloride 20 mEq Potassium acetate 20 mEq Calcium gluconate 4.65 mEq Multivitamins 10 mL Trace Elements 1 mL Thiamine 100 mg Folic acid 1 mg Insulin 15 units Total volume 2400 mL to be infused over 24 hrs will provide 870 kcal/day Final osmolarity 841 mOsm/L (maximum for PPN is 900 mOsm/L) Labs to be ordered per PN order protocol Pharmacy will follow and adjust parenteral nutrition orders on a daily basis. Thank you.
[2020-08-15] MEDS ORDERED: THIAMINE HCL 100 MG in SYRINGE 9 ML IV ONE (12:00)
[2020-08-15 12:18] LABS: Bilirubin,Total 0.5 mg/dl (0.2-1)
[2020-08-15] MEDS ORDERED: POTASSIUM CHLORIDE 40 MEQ in D5W AND 1/2NSS 1,000 ML/1,000 ML BAG IV SCH (13:00)
--- NOTE | 2020-08-15 13:21 | Surgery Progress Note ---
Date of Service August 15, 2020 Assessment & Plan (1) Partial small bowel obstruction: 74 yo female POD#4 Ex lap, DON for closed loop SBO -Minimal bowel function -Overall her abdominal distension is improved and having less abdominal pain -Continue NGT/NPO -Encourage ambulation -PICC/TPN today Admission and Anticipated Discharge Date Admission Date: August 08, 2020 Subjective Pt seen and examined. Had minimal flatus this morning. No BM. Pain still improving. Physical Exam Constitutional: WD/WN, vitals as above Gastrointestinal (Abdomen): Inspection/Auscultation: + abdomen distended Percussion/Palpation: + abdomen tender (appropriately ) and abdomen soft Incision with jesús, no erythema or drainage Results & Data ([facility]) Vital Signs (Past 12 Hours) Vital Signs Temp Pulse Pulse Pulse Resp BP BP 08/15/20 12:29 36.6 C 81 20 187/84 H 08/15/20 12:10 81 187/84 H 08/15/20 11:06 58 L 08/15/20 08:23 36.5 C 73 20 174/75 H 08/15/20 06:13 69 157/74 H 08/15/20 03:51 36.5 C 73 16 157/74 H Pulse Ox 08/15/20 12:29 96 08/15/20 12:10 08/15/20 11:06 08/15/20 08:23 95 08/15/20 06:13 08/15/20 03:51 97 PG Care Time/CCT Total # of Minutes Spent Total Time Spent with Patient: Total time spent is greater than 50% in coordination of care (as documented) at patient's floor/unit and/or counseling patient: Coding Level of Care Code None Diagnoses Partial small bowel obstruction K56.600
--- NOTE | 2020-08-15 14:45 | Hospitalist Progress Note ---
Date of Service August 15, 2020 Assessment & Plan (1) Partial small bowel obstruction: Has history of cholecystectomy and hysterectomy No history of SBO before Admitted with abdominal pain and nausea noted to have small bowel obstruction on CAT scan Has been kept on n.p.o., IV fluids and pain medications Appreciate surgery input and recommendation She has now NG tube placement for decompression Condition deteriorated with increasing abdominal distention and pain We will continue NGT suction for now and keep her n.p.o. Clinically a little bit better today Small amount of bowel movement following rectal suppository but he still has very decreased bowel sounds on examination The primary service has asked for PICC line and starting TPN Exploratory laparotomy with lysis of ideations, Status post exploratory laparotomy and lysis of adhesions on 08/11/2020 Remains drowsy and bowel sound is very sluggish Bowel is not moved yet and she is not passing gas We will continue NG tube suction as for now As above Mandy zuniga with RVR Developed atrial fibrillation day before yesterday Has been on IV Lopressor and intravenous heparin Received Cardizem drip and reverted to sinus rhythm We will monitor Appreciate cardiology input and recommendation Back in sinus rhythm since day before yesterday Discontinue IV heparin and put her on heparin subcu Remains in sinus rhythm Possible intra-abdominal infection Noted to have high fever of 38.2 on of this month Associated tachycardia and leukocytosis supports possible abdominal infection She was started with intravenous Cipro and Flagyl No more fever and no chills and white count has been coming down We will continue current antibiotic Gout Noted to have acute gouty pain Was on oral colchicine Cannot take any NSAID's due to allergies We will try single dose of intravenous Solu-Medrol at 20 mg Can start oral colchicine as soon as she starts taking food orally Foot pain is worse today and will give another dose of Solu-Medrol 20 mg IV Seems to be gout is flaring up will give Solu-Medrol x1 dose of 40 mg today Will not give any more on Solu-Medrol We will try colchicine 0.3 mg twice daily through the NG tube-very reducing doses secondary to drug interaction with Cipro (2) COVID-19 virus infection: Is a status post first dose of Covid vaccine recently Noted to be Covid positive but does not have any symptoms Saturating normally on room air Denies any respiratory symptoms and saturating well on room air Has been on 3 L of nasal cannula oxygen following surgery Minimal cough but no other symptoms We will get chest x-ray to rule out any CVS and/or progressive pneumonia (3) Hypertension: Remains on the upper side of normal Blood pressure noted to be very high Has been on Lopressor 5 mg every 6 hourly Will add hydralazine as needed, Nitropaste has been added We will add amlodipine 5 mg daily and continue IV Lopressor Blood pressure remains on the upper side (4) Manzo's esophagus: Continue PPI (5) Obstructive sleep apnea: No acute symptoms (6) Restless leg syndrome: Continue current medication DVT prophylaxis We will start subcu heparin Discussed with the son and the on 08/10/2020 Admission and Anticipated Discharge Date Admission Date: August 08, 2020 Subjective 08/09/2020 The patient was seen and examined in medical floor She was admitted yesterday with SBO and COVID-19 virus infection without any significant respiratory symptoms She required NG tube placement by surgery this morning Complains of abdominal pain without any nausea and/or vomiting 08/10/2020 The patient was seen and examined in medical floor She has more abdominal distention with pain and her bowel is not moved yet She will require to have NG suction as planned Denies any shortness of breath and has been saturating well with room air 08/11/2020 The patient was seen and examined in medical floor She is a status post exploratory laparotomy and lysis of adhesions She remains very drowsy and the pain seems to be reasonably controlled 08/12/2020 The patient was seen and examined in medical floor She is a status post exploratory laparotomy, POD #1 She complains of abdominal pain and right foot pain likely due to gout Denies any increase in shortness of breath Has not had any bowel movement or any passing of gas 08/13/2020 The patient was seen and examined in telemetry unit She is back to sinus rhythm since last night She was noted to have very high blood pressure of systolic 200 Complains Of Right Ankle Pain Likely Secondary to Gout Nitropaste was given and also received a dose of intravenous hydralazine Has not passed any gas and or bowel movement 08/14/2020 The patient was seen and examined in Covid unit She has been complaining of left ankle pain secondary to flareup of gout She has not moved her bowels or passed any gas Still remains n.p.o. 08/15/2020 The patient was seen and examined in Covid unit She has had bowel movement following suppository but he still has very sluggish sound The surgery service has put her on TPN Blood pressure remains elevated Review of Systems Review of Systems: All systems reviewed and are unremarkable except as noted below Gastrointestinal: + abdominal pain and + bloating; no nausea and no vomiting Physical Exam Physical Exam: Sitting on a chair with minimal distress and anxiety Constitutional: well developed, well nourished, + acute distress (Status post laparotomy with lysis of adhesions this morning) and + ill appearing Eyes: PERRL, conjunctivae normal, anicteric sclerae ENMT: external ear and nose normal, oropharynx normal Neck: trachea midline, no thyromegaly Respiratory: no respiratory distress Auscultation: lungs clear to auscultation bilaterally Cardiovascular: Rate/Rhythm: regular rate and regular rhythm Heart Sounds: no murmur Extremities: no edema Gastrointestinal (Abdomen): Inspection/Auscultation: + abdomen distended; + abnormal bowel sounds (Decreased) Percussion/Palpation: + abdomen tender and abdomen soft Musculoskeletal: Right ankle remains painful with minimal movement Neurologic: Alert, awake and oriented x3. Weak and lethargic Psychiatric: A+Ox3, euthymic affect Lymphatic: no cervical or axillary lymphadenopathy Results & Data Results & Data ([facility]) Vital Signs (Past 12 Hours) Vital Signs Temp Pulse Pulse Pulse Resp BP BP 08/15/20 12:29 36.6 C 81 20 187/84 H 08/15/20 12:10 81 187/84 H 08/15/20 11:06 58 L 08/15/20 08:23 36.5 C 73 20 174/75 H 08/15/20 06:13 69 157/74 H 08/15/20 03:51 36.5 C 73 16 157/74 H Pulse Ox 08/15/20 12:29 96 08/15/20 12:10 08/15/20 11:06 08/15/20 08:23 95 08/15/20 06:13 08/15/20 03:51 97 Laboratory Results Short CBC 08/15/20 Range/Units 07:30 WBC 11.84 H (4.8-10.8) K/uL Hgb 10.4 L (12.0-16.0) g/dL Hct 30.7 L (37-47) % Plt Count 198 (130-400) K/uL BMP 08/15/20 07:30 Sodium 136 Potassium 3.1 L Chloride 104 Carbon Dioxide 27 BUN 15 Creatinine 0.64 Glucose 143 H Calcium 8.1 L Liver Function 08/15/20 Range/Units 11:12 Total Bilirubin 0.5 (0.2-1) mg/dl AST 30 (15-37) U/L ALT 35 (12-78) U/L Alkaline Phosphatase 67 (45-117) U/L Medications Administered Current Inpatient Medications Amitriptyline HCl (Amitriptyline Hcl 25 Mg Tab) 25 mg PO HS ESTEPHANIE Stop: 09/07/20 20:59 Last Admin: 08/14/20 20:18 Dose: 25 mg Documented by: Bupropion HCl (Bupropion Hcl 75 Mg Tablet) 75 mg NG Q6H ESTEPHANIE Stop: 09/12/20 08:59 Last Admin: 08/15/20 10:11 Dose: 75 mg Documented by: Colchicine (Colchicine 0.6 Mg Tab) 0.3 mg PO BID ESTEPHANIE Stop: 09/13/20 20:59 Last Admin: 08/15/20 10:10 Dose: 0.3 mg Documented by: Dextrose (Dextrose 50% 50 Ml Syringe) 25 - 50 ml IV UD PRN; Protocol PRN Reason: Hypoglycemia Protocol Stop: 09/07/20 10:44 Glucagon (Glucagon For Inj 1 Mg Vial) 1 mg IM UD PRN; Protocol PRN Reason: Hypoglycemia Protocol Stop: 09/07/20 10:44 Glucose (Glucose 40% Gel 15 Gm Tube) 15 - 30 gm PO UD PRN; Protocol PRN Reason: Hypoglycemia Protocol Stop: 09/07/20 10:44 Glucose (Glucose 10 Tabs/Tube) 4 - 8 tabs PO UD PRN; Protocol PRN Reason: Hypoglycemia Protocol Stop: 09/07/20 10:44 Heparin Sodium (Porcine) (Heparin Sod 5,000 Unit/0.5 Ml Vial) 5,000 units SQ Q12 ESTEPHANIE Stop: 09/08/20 20:59 Last Admin: 08/15/20 08:29 Dose: 5,000 units Documented by: Hydralazine HCl (Hydralazine Hcl 20 Mg/Ml Vial) 10 mg IV Q6H PRN PRN Reason: Hypertension Stop: 09/07/20 10:16 Last Admin: 08/15/20 00:04 Dose: 10 mg Documented by: Hydromorphone HCl (Hydromorphone Inj 0.5 Mg/0.5 Ml Syr) 0.5 mg IV Q3H PRN PRN Reason: Pain Stop: 08/22/20 10:16 Last Admin: 08/15/20 04:22 Dose: 0.5 mg Documented by: Pantoprazole Sodium 40 mg/ (Syringe) 10 mls @ 5 mls/min IV BID@0900,2100 [facility] Stop: 09/12/20 08:59 Last Admin: 08/15/20 08:28 Dose: 5 mls/min Documented by: Ciprofloxacin (Cipro / D5w) 400 mg in 200 mls @ 100 mls/hr IV Q12H [facility]; Protocol Stop: 08/23/20 18:59 Last Infusion: 08/15/20 08:30 Dose: Infused Documented by: Metronidazole (Flagyl) 500 mg in 100 mls @ 100 mls/hr IV Q8H [facility]; Protocol Stop: 08/23/20 18:59 Last Infusion: 08/15/20 13:30 Dose: Infused Documented by: Acetaminophen (Ofirmev) 1,000 mg in 100 mls @ 400 mls/hr IV Q8H [facility] Stop: 08/17/20 12:29 Last Infusion: 08/15/20 13:55 Dose: Infused Documented by: Potassium Chloride 40 meq/ (Dextrose/Sodium Chloride) 1,000 ml in 1,020 mls @ 100 mls/hr IV .[id number] [facility] Stop: 08/15/20 15:59 Last Admin: 08/15/20 13:43 Dose: 100 mls/hr Documented by: Dextrose (D10w) 1,000 mls @ 0 mls/hr IV .Q0M PRN PRN Reason: protocol (see label comments) Stop: 09/14/20 15:59 Nutrition (Parenteral) 2,400 (ml/ TPN BAG) 2,400 mls @ 100 mls/hr IV .Q24H [facility]; Protocol Stop: 08/16/20 15:59 Insulin Aspart (Insulin Aspart 100 Units/Ml 3 Ml Pen) 0 units SC Q6 [facility] Stop: 09/07/20 11:59 Last Admin: 08/15/20 12:51 Dose: Not Given Documented by: Lisinopril (Lisinopril 20 Mg Tab) 20 mg PO QAM [facility] Stop: 09/14/20 08:59 Last Admin: 08/15/20 10:11 Dose: 20 mg Documented by: Metoprolol Tartrate (Metoprolol Tartrate 1 Mg/Ml Vial) 5 mg IV Q6 [facility] Stop: 09/12/20 11:59 Last Admin: 08/15/20 12:10 Dose: 5 mg Documented by: Miscellaneous (Carbohydrates For Hypoglycemia ) 15 - 30 gm PO UD PRN PRN Reason: Hypoglycemia Treatment Stop: 09/07/20 10:44 Miscellaneous Information (Tpn/Ppn Consult Pharmacy) 1 ea N/A UD PRN PRN Reason: Consult Stop: 09/14/20 10:33 Ondansetron HCl (Ondansetron Inj 2 Mg/Ml 2 Ml Vial) 4 mg IV Q6H PRN PRN Reason: Nausea Stop: 09/07/20 10:16 Last Admin: 08/10/20 12:53 Dose: 4 mg Documented by: Pramipexole Dihydrochloride (Pramipexole Dihydrochlo 0.5 Mg Tab) 0.5 mg PO HS [facility] Stop: 09/07/20 20:59 Last Admin: 08/14/20 20:18 Dose: 0.5 mg Documented by: Tizanidine HCl (Tizanidine Hcl 4 Mg Tablet) 4 mg PO DAILY PRN PRN Reason: MUSCLE SPASM Stop: 09/07/20 10:16 Last Admin: 08/11/20 07:54 Dose: 4 mg Documented by:
[2020-08-15] MEDS ORDERED: DEXTROSE 10% 1,000 ML IV PRN (16:00)
[2020-08-15] MEDS ORDERED: Custom Peripheral Pn 2,400 ML in TPN BAG 0 ML IV SCH (16:00)
[2020-08-15] MEDS ORDERED: amLODIPine BESYLATE 5 MG TAB NG ONE (16:42)
[2020-08-15] MEDS ORDERED: COUGH DROP (SUGAR FREE) LOZ 24 LOZ/1 BOX BUCCAL ONE (17:46)
[2020-08-15] MEDS ORDERED: COUGH DROP (SUGAR FREE) LOZ 24 LOZ/1 BOX BUCCAL PRN (18:00)
[2020-08-15] MEDS: PRAMIPEXOLE DIHYDROCHLO 0.5 MG TAB PO SCH (20:03)
[2020-08-15] MEDS: AMITRIPTYLINE HCL 25 MG TAB PO SCH (20:03)
[2020-08-16] MEDS: HYDROmorphone INJ 0.5 MG/0.5 ML SYR IV PRN ×4 (00:23→21:27)
[2020-08-16] MEDS: ONDANSETRON INJ 2 MG/ML 2 ML VIAL IV PRN (00:32)
[2020-08-16] MEDS: metroNIDAZOLE 500 MG/100 ML BAG IV SCH ×3 (03:47→18:20)
[2020-08-16] MEDS: buPROPion HCl 75 MG TABLET NG SCH ×4 (03:48→21:31)
[2020-08-16] MEDS: ACETAMINOPHEN 1,000 MG/100 ML VIAL IV SCH ×3 (04:05→21:27)
[2020-08-16] MEDS: METOPROLOL TARTRATE 1 MG/ML VIAL IV SCH ×3 (05:09→18:29)
[2020-08-16] MEDS: INSULIN ASPART 100 UNITS/ML 3 ML PEN SC SCH ×3 (06:30→18:11)
[2020-08-16 07:06] LABS: Basophils # (auto) 0.01 K/uL (0-0.2); Basophils % (auto) 0.1 %; Eosinophils # (auto) 0.29 K/uL (0-0.5); Eosinophils % (auto) 2.3 %; Hematocrit (blood only) 30.9 % (37-47); Hemoglobin 10.9 g/dL (12.0-16.0); Immature Granulocytes # (auto) 0.07 K/uL (0.00-0.02); Immature Granulocytes % (auto) 0.6 %; Lymphocytes # (auto) 2.27 K/uL (1.2-3.4); Lymphocytes % (auto) 18.3 %; Mean Corpuscular Hemoglobin 32.5 pg (25-34); Mean Corpuscular Hgb Conc 35.3 g/dL (32-36); Mean Corpuscular Volume 92.2 fL (80-100); Mean Platelet Volume 10.5 fL (7.4-10.4); Monocytes # (auto) 1.12 K/uL (0.11-0.59); Neutrophils # (auto) 8.65 K/uL (1.4-6.5); Neutrophils % (auto) 69.7 %; Platelet Count 233 K/uL (130-400); RDW Coefficient of Variation 13.6 % (11.5-14.5); RDW Standard Deviation 45.4 fL (36.4-46.3); Red Blood Count 3.35 M/uL (4.2-5.4); White Blood Count 12.41 K/uL (4.8-10.8)
[2020-08-16 07:30] LABS: BUN Creatinine Ratio 24.8 (10-20); Calcium 8.2 mg/dl (8.5-10.1); Creatinine Clr Calc Pharmacy 86.3 ml/min; Est GFR (African American) 102.6; Est GFR (Non-African American) 88.5; Magnesium 1.9 mg/dl (1.8-2.4); Potassium 3.1 mmol/L (3.5-5.1)
[2020-08-16 07:32] LABS: Phosphorus 3.3 mg/dl (2.5-4.9)
[2020-08-16] MEDS: PANTOprazole 40 MG in SYRINGE 0 ML IV SCH ×2 (08:37→21:30)
[2020-08-16] MEDS: CIPROFLOXACIN / D5W 400 MG/200 ML BAG IV SCH ×2 (08:37→18:21)
[2020-08-16] MEDS: HEPARIN SOD 5,000 UNIT/0.5 ML VIAL SQ SCH ×2 (08:38→21:30)
[2020-08-16] MEDS: lisinopril 20 MG TAB PO SCH (08:38)
[2020-08-16] MEDS: COLCHICINE 0.6 MG TAB PO SCH ×2 (08:38→21:29)
--- NOTE | 2020-08-16 08:43 | XRay Report ---
[facility] HISTORY: POD#5 Exlap small bowel obstruction COMPARISON: [facility] 08/10/2020. FINDINGS: Persistent mild gaseous dilatation of the small bowel. There is gas within the colon and re ctum which are nondilated. Midline skin jesús are present. The left total hip arthroplasty. Nasogastric tube terminates in the stomach. Prior cholecystectomy. No renal calculi. No ureteral calculi. No pneumoperitoneum or pneum atosis. IMPRESSION: No change in the mildly dilated gas-filled loops of small bowel. This may represent a postoperative i leus or residual partial small bowel obstruction. Nasogastric tube terminates in the stomach. ACT 112: Negative or not required by law. Electronically signed by: Sushil Zambrano M.D. 08/16/2020 8:41 AM
[2020-08-16] MEDS: POTASSIUM CHLORIDE / WTR 10 MEQ/100 ML PLCT IV SCH ×2 (08:48→10:51)
--- NOTE | 2020-08-16 12:05 | Surgery Progress Note ---
Date of Service August 16, 2020 Assessment & Plan (1) Partial small bowel obstruction: 74 yo female POD#5 Ex lap, DON for closed loop SBO -Having more consistent bowel function -Overall her abdominal distension is improved and having less abdominal pain -Clamp trial on NGT -Encourage ambulation -Continue PPN, hold on PICC line today Admission and Anticipated Discharge Date Admission Date: August 08, 2020 Subjective Pt seen and examined. Had a few BM's. Passing some flatus as well. No N/V. Physical Exam Constitutional: WD/WN, vitals as above Gastrointestinal (Abdomen): Inspection/Auscultation: + abdomen distended Percussion/Palpation: + abdomen tender (appropriately ) and abdomen soft Incision with jesús, no erythema or drainage Results & Data ([facility]) Vital Signs (Past 12 Hours) Vital Signs Temp Pulse Pulse Pulse Resp BP BP 08/16/20 08:46 36.8 C 83 20 167/83 H 08/16/20 08:00 73 08/16/20 05:09 83 154/70 H 08/16/20 03:56 36.6 C 82 16 154/70 H Pulse Ox 08/16/20 08:46 93 08/16/20 08:00 08/16/20 05:09 08/16/20 03:56 93 PG Care Time/CCT Total # of Minutes Spent Total Time Spent with Patient: Total time spent is greater than 50% in coordination of care (as documented) at patient's floor/unit and/or counseling patient: Coding Level of Care Code None Diagnoses Partial small bowel obstruction K56.600
[2020-08-16] MEDS ORDERED: Custom Peripheral Pn 2,400 ML in TPN BAG 0 ML IV SCH (16:00)
--- NOTE | 2020-08-16 16:18 | Hospitalist Progress Note ---
Date of Service August 16, 2020 Assessment & Plan (1) Partial small bowel obstruction: Has history of cholecystectomy and hysterectomy No history of SBO before Admitted with abdominal pain and nausea noted to have small bowel obstruction on CAT scan Has been kept on n.p.o., IV fluids and pain medications Appreciate surgery input and recommendation Overall condition has been improving for the last 2 to 3 days She has been moving her bowel and passing gas since yesterday Bowel sounds are improving She has been getting PPN for now and consideration of TPN is on hold Likely removal of her NG tube today and start oral sepsis down the line KUB is not showing much improvement of her ileus-await surgical evaluation Exploratory laparotomy with lysis of ideations, Status post exploratory laparotomy and lysis of adhesions on 08/11/2020 Remains drowsy and bowel sound is very sluggish Bowel is not moved yet and she is not passing gas We will continue NG tube suction as for now As above A. fib with RVR Developed atrial fibrillation day before yesterday Has been on IV Lopressor and intravenous heparin Received Cardizem drip and reverted to sinus rhythm We will monitor Appreciate cardiology input and recommendation Back in sinus rhythm since day before yesterday Discontinue IV heparin and put her on heparin subcu Remains in sinus rhythm Possible intra-abdominal infection Noted to have high fever of 38.2 on of this month Associated tachycardia and leukocytosis supports possible abdominal infection She was started with intravenous Cipro and Flagyl No more fever and no chills and white count has been coming down We will continue current antibiotic Gout Noted to have acute gouty pain Was on oral colchicine Cannot take any NSAID's due to allergies We will try single dose of intravenous Solu-Medrol at 20 mg Can start oral colchicine as soon as she starts taking food orally Foot pain is worse today and will give another dose of Solu-Medrol 20 mg IV Seems to be gout is flaring up will give Solu-Medrol x1 dose of 40 mg today Will not give any more on Solu-Medrol We will try colchicine 0.3 mg twice daily through the NG tube-very reducing doses secondary to drug interaction with Cipro (2) COVID-19 virus infection: Is a status post first dose of Covid vaccine recently Noted to be Covid positive but does not have any symptoms Saturating normally on room air Denies any respiratory symptoms and saturating well on room air Has been on 3 L of nasal cannula oxygen following surgery Minimal cough but no other symptoms Has been saturating normally with room air and will not get any chest x-ray for now (3) Hypertension: Remains on the upper side of normal Blood pressure noted to be very high Has been on Lopressor 5 mg every 6 hourly Will add hydralazine as needed, Nitropaste has been added We will add amlodipine 5 mg daily and continue IV Lopressor Blood pressure remains on the upper side Added amlodipine 5 mg daily through NG tube (4) Manzo's esophagus: Continue PPI (5) Obstructive sleep apnea: No acute symptoms (6) Restless leg syndrome: Continue current medication DVT prophylaxis We will start subcu heparin is updated on 08/16/2020 Admission and Anticipated Discharge Date Admission Date: August 08, 2020 Subjective 08/09/2020 The patient was seen and examined in medical floor She was admitted yesterday with SBO and COVID-19 virus infection without any significant respiratory symptoms She required NG tube placement by surgery this morning Complains of abdominal pain without any nausea and/or vomiting 08/10/2020 The patient was seen and examined in medical floor She has more abdominal distention with pain and her bowel is not moved yet She will require to have NG suction as planned Denies any shortness of breath and has been saturating well with room air 08/11/2020 The patient was seen and examined in medical floor She is a status post exploratory laparotomy and lysis of adhesions She remains very drowsy and the pain seems to be reasonably controlled 08/12/2020 The patient was seen and examined in medical floor She is a status post exploratory laparotomy, POD #1 She complains of abdominal pain and right foot pain likely due to gout Denies any increase in shortness of breath Has not had any bowel movement or any passing of gas 08/13/2020 The patient was seen and examined in telemetry unit She is back to sinus rhythm since last night She was noted to have very high blood pressure of systolic 200 Complains Of Right Ankle Pain Likely Secondary to Gout Nitropaste was given and also received a dose of intravenous hydralazine Has not passed any gas and or bowel movement 08/14/2020 The patient was seen and examined in Covid unit She has been complaining of left ankle pain secondary to flareup of gout She has not moved her bowels or passed any gas Still remains n.p.o. 08/15/2020 The patient was seen and examined in Covid unit She has had bowel movement following suppository but he still has very sluggish sound The surgery service has put her on TPN Blood pressure remains elevated 08/16/2020 The patient was seen and examined in telemetry unit and in Covid room She feels better without any significant symptoms She has been moving her bowel and passing gas Denies any abdominal distention, nausea and/or vomiting Review of Systems Review of Systems: All systems reviewed and are unremarkable except as noted below Gastrointestinal: + bloating; no abdominal pain, no nausea and no vomiting Physical Exam Physical Exam: Lying in bed with minimal distress due to NG tube and abdominal distention distress Constitutional: well developed, well nourished, + acute distress (Status post laparotomy with lysis of adhesions this morning) and + ill appearing Eyes: PERRL, conjunctivae normal, anicteric sclerae ENMT: external ear and nose normal, oropharynx normal Neck: trachea midline, no thyromegaly Respiratory: no respiratory distress Auscultation: lungs clear to auscultation bilaterally Cardiovascular: Rate/Rhythm: regular rate and regular rhythm Heart Sounds: no murmur Extremities: no edema Gastrointestinal (Abdomen): Inspection/Auscultation: + abdomen distended; + abnormal bowel sounds (Decreased) Percussion/Palpation: + abdomen tender (Mildly tender) and abdomen soft Neurologic: Alert, awake and oriented x3. Generally weak Psychiatric: A+Ox3, euthymic affect Lymphatic: no cervical or axillary lymphadenopathy Results & Data Results & Data ([facility]) Vital Signs (Past 12 Hours) Vital Signs Temp Pulse Pulse Pulse Resp BP BP 08/16/20 15:14 36.5 C 83 18 178/73 H 08/16/20 12:08 36.6 C 87 20 174/76 H 08/16/20 12:07 88 174/76 H 08/16/20 08:46 36.8 C 83 20 167/83 H 08/16/20 08:00 73 08/16/20 05:09 83 154/70 H Pulse Ox 08/16/20 15:14 91 08/16/20 12:08 95 08/16/20 12:07 08/16/20 08:46 93 08/16/20 08:00 08/16/20 05:09 Laboratory Results Short CBC 08/16/20 Range/Units 05:53 WBC 12.41 H (4.8-10.8) K/uL Hgb 10.9 L (12.0-16.0) g/dL Hct 30.9 L (37-47) % Plt Count 233 (130-400) K/uL BMP 08/16/20 05:53 Sodium 135 L Potassium 3.1 L Chloride 102 Carbon Dioxide 28 BUN 15 Creatinine 0.60 Glucose 102 H Calcium 8.2 L Medications Administered Current Inpatient Medications Amitriptyline HCl (Amitriptyline Hcl 25 Mg Tab) 25 mg PO HS ESTEPHANIE Stop: 09/07/20 20:59 Last Admin: 08/15/20 20:03 Dose: 25 mg Documented by: Bupropion HCl (Bupropion Hcl 75 Mg Tablet) 75 mg NG Q6H ESTEPHANIE Stop: 09/12/20 08:59 Last Admin: 08/16/20 14:11 Dose: 75 mg Documented by: Colchicine (Colchicine 0.6 Mg Tab) 0.3 mg PO BID ESTEPHANIE Stop: 09/13/20 20:59 Last Admin: 08/16/20 08:38 Dose: 0.3 mg Documented by: Dextrose (Dextrose 50% 50 Ml Syringe) 25 - 50 ml IV UD PRN; Protocol PRN Reason: Hypoglycemia Protocol Stop: 09/07/20 10:44 Glucagon (Glucagon For Inj 1 Mg Vial) 1 mg IM UD PRN; Protocol PRN Reason: Hypoglycemia Protocol Stop: 09/07/20 10:44 Glucose (Glucose 40% Gel 15 Gm Tube) 15 - 30 gm PO UD PRN; Protocol PRN Reason: Hypoglycemia Protocol Stop: 09/07/20 10:44 Glucose (Glucose 10 Tabs/Tube) 4 - 8 tabs PO UD PRN; Protocol PRN Reason: Hypoglycemia Protocol Stop: 09/07/20 10:44 Heparin Sodium (Porcine) (Heparin Sod 5,000 Unit/0.5 Ml Vial) 5,000 units SQ Q12 ESTEPHANIE Stop: 09/08/20 20:59 Last Admin: 08/16/20 08:38 Dose: 5,000 units Documented by: Hydralazine HCl (Hydralazine Hcl 20 Mg/Ml Vial) 10 mg IV Q6H PRN PRN Reason: Hypertension Stop: 09/07/20 10:16 Last Admin: 08/15/20 00:04 Dose: 10 mg Documented by: Hydromorphone HCl (Hydromorphone Inj 0.5 Mg/0.5 Ml Syr) 0.5 mg IV Q3H PRN PRN Reason: Pain Stop: 08/22/20 10:16 Last Admin: 08/16/20 14:11 Dose: 0.5 mg Documented by: Pantoprazole Sodium 40 mg/ (Syringe) 10 mls @ 5 mls/min IV BID@0900,2100 [facility] Stop: 09/12/20 08:59 Last Admin: 08/16/20 08:37 Dose: 5 mls/min Documented by: Ciprofloxacin (Cipro / D5w) 400 mg in 200 mls @ 100 mls/hr IV Q12H [facility]; Protocol Stop: 08/23/20 18:59 Last Infusion: 08/16/20 10:54 Dose: Infused Documented by: Metronidazole (Flagyl) 500 mg in 100 mls @ 100 mls/hr IV Q8H [facility]; Protocol Stop: 08/23/20 18:59 Last Infusion: 08/16/20 11:57 Dose: Infused Documented by: Acetaminophen (Ofirmev) 1,000 mg in 100 mls @ 400 mls/hr IV Q8H [facility] Stop: 08/17/20 12:29 Last Infusion: 08/16/20 12:23 Dose: Infused Documented by: Dextrose (D10w) 1,000 mls @ 0 mls/hr IV .Q0M PRN PRN Reason: protocol (see label comments) Stop: 09/14/20 15:59 Nutrition (Parenteral) 2,400 (ml/ TPN BAG) 2,400 mls @ 100 mls/hr IV .Q24H [facility]; Protocol Stop: 08/17/20 15:59 Insulin Aspart (Insulin Aspart 100 Units/Ml 3 Ml Pen) 0 units SC Q6 [facility] Stop: 09/07/20 11:59 Last Admin: 08/16/20 11:57 Dose: Not Given Documented by: Lisinopril (Lisinopril 20 Mg Tab) 20 mg PO QAM [facility] Stop: 09/14/20 08:59 Last Admin: 08/16/20 08:38 Dose: 20 mg Documented by: Menthol (Cough Drop (Sugar Free) Criss 24 Criss/1 Box) 1 criss BUCCAL 6XD PRN PRN Reason: Sore Throat Stop: 09/14/20 17:59 Metoprolol Tartrate (Metoprolol Tartrate 1 Mg/Ml Vial) 5 mg IV Q6 ESTEPHANIE Stop: 09/12/20 11:59 Last Admin: 08/16/20 12:07 Dose: 5 mg Documented by: Miscellaneous (Carbohydrates For Hypoglycemia ) 15 - 30 gm PO UD PRN PRN Reason: Hypoglycemia Treatment Stop: 09/07/20 10:44 Miscellaneous Information (Tpn/Ppn Consult Pharmacy) 1 ea N/A UD PRN PRN Reason: Consult Stop: 09/14/20 10:33 Ondansetron HCl (Ondansetron Inj 2 Mg/Ml 2 Ml Vial) 4 mg IV Q6H PRN PRN Reason: Nausea Stop: 09/07/20 10:16 Last Admin: 08/16/20 00:32 Dose: 4 mg Documented by: Pramipexole Dihydrochloride (Pramipexole Dihydrochlo 0.5 Mg Tab) 0.5 mg PO HS [facility] Stop: 09/07/20 20:59 Last Admin: 08/15/20 20:03 Dose: 0.5 mg Documented by: Tizanidine HCl (Tizanidine Hcl 4 Mg Tablet) 4 mg PO DAILY PRN PRN Reason: MUSCLE SPASM Stop: 09/07/20 10:16 Last Admin: 08/11/20 07:54 Dose: 4 mg Documented by:
[2020-08-16] MEDS: AMITRIPTYLINE HCL 25 MG TAB PO SCH (21:30)
[2020-08-16] MEDS: PRAMIPEXOLE DIHYDROCHLO 0.5 MG TAB PO SCH (21:30)
[2020-08-17] MEDS: METOPROLOL TARTRATE 1 MG/ML VIAL IV SCH ×4 (00:26→17:47)
[2020-08-17] MEDS: INSULIN ASPART 100 UNITS/ML 3 ML PEN SC SCH ×6 (00:47→22:27)
[2020-08-17] MEDS ORDERED: Nursing to Pharmacy Communication SCH ×2 (02:00→12:15)
[2020-08-17] MEDS: metroNIDAZOLE 500 MG/100 ML BAG IV SCH ×3 (03:29→18:39)
[2020-08-17] MEDS: ACETAMINOPHEN 1,000 MG/100 ML VIAL IV SCH (04:46)
--- NOTE | 2020-08-17 05:47 | Surgery Progress Note ---
Date of Service August 17, 2020 Assessment & Plan (1) H/O exploratory laparotomy: Patient with some abdominal pain receiving some Dilaudid She apparently is passing flatus Currently on TPN, and ice chips Her abdomen is mildly distended but she does have some bowel sounds We will try some clear liquids Ambulate as much as possible Add senna syrup Check a.m. labs-including Phos and mag Admission and Anticipated Discharge Date Admission Date: August 08, 2020 Results & Data ([facility]) Vital Signs (Past 12 Hours) Vital Signs Temp Pulse Pulse Resp BP BP BP 08/17/20 04:00 37.0 C 86 18 165/76 H 08/17/20 00:26 83 159/76 H 08/17/20 00:00 36.6 C 83 20 159/76 H 08/16/20 20:00 72 179/86 H 08/16/20 18:29 92 H 164/92 H Pulse Ox 08/17/20 04:00 92 08/17/20 00:26 08/17/20 00:00 94 08/16/20 20:00 08/16/20 18:29 PG Care Time/CCT Total # of Minutes Spent Total Time Spent with Patient: Total time spent is greater than 50% in coordination of care (as documented) at patient's floor/unit and/or counseling patient: Coding Level of Care Code None Diagnoses H/O exploratory laparotomy Z98.890
[2020-08-17] MEDS: CIPROFLOXACIN / D5W 400 MG/200 ML BAG IV SCH (06:40)
[2020-08-17 07:20] LABS: Basophils # (auto) 0.02 K/uL (0-0.2); Basophils % (auto) 0.1 %; Hematocrit (blood only) 32.8 % (37-47); Hemoglobin 11.3 g/dL (12.0-16.0); Immature Granulocytes # (auto) 0.07 K/uL (0.00-0.02); Immature Granulocytes % (auto) 0.5 %; Lymphocytes # (auto) 2.15 K/uL (1.2-3.4); Mean Corpuscular Hemoglobin 31.9 pg (25-34); Mean Corpuscular Hgb Conc 34.5 g/dL (32-36); Mean Corpuscular Volume 92.7 fL (80-100); Mean Platelet Volume 9.9 fL (7.4-10.4); Monocytes # (auto) 1.26 K/uL (0.11-0.59); Monocytes % (auto) 9.4 %; Neutrophils # (auto) 9.52 K/uL (1.4-6.5); Platelet Count 253 K/uL (130-400); RDW Coefficient of Variation 13.6 % (11.5-14.5); RDW Standard Deviation 46.1 fL (36.4-46.3); Red Blood Count 3.54 M/uL (4.2-5.4); White Blood Count 13.42 K/uL (4.8-10.8)
[2020-08-17] MEDS: SENNOSIDES 8.8 MG/5 ML UDC PO SCH ×2 (07:28→20:01)
[2020-08-17] MEDS: lisinopril 20 MG TAB PO SCH (07:28)
[2020-08-17] MEDS: HEPARIN SOD 5,000 UNIT/0.5 ML VIAL SQ SCH ×2 (07:29→19:59)
[2020-08-17] MEDS: PANTOprazole 40 MG in SYRINGE 0 ML IV SCH ×2 (07:29→19:59)
[2020-08-17] MEDS: COLCHICINE 0.6 MG TAB PO SCH ×2 (07:30→20:00)
[2020-08-17] MEDS: buPROPion SR 150 MG TABCR PO SCH ×2 (07:30→20:00)
[2020-08-17 08:13] LABS: BUN Creatinine Ratio 29.3 (10-20); Calcium 8.3 mg/dl (8.5-10.1); Creatinine Clr Calc Pharmacy 78.5 ml/min; Est GFR (African American) 99.5; Est GFR (Non-African American) 85.8; Magnesium 1.9 mg/dl (1.8-2.4); Phosphorus 3.2 mg/dl (2.5-4.9); Potassium 3.9 mmol/L (3.5-5.1)
--- NOTE | 2020-08-17 08:42 | Pharmacy Report ---
PHA: Parenteral Nutrition Con - Date of Service August 17, 2020 - Scope Pharmacy was consulted on 08/15/20 to manage parenteral nutrition orders for this patient. - Subjective The patient is currently on day [#] of [peripheral or central] parenteral nutrition for [INDICATION]. - Objective Height: 5 ft 3 in Weight: 92.8 kg Diet: NPO Vascular Access:: peripheral Intake & Output (24hrs):: Intake & Output 08/15/20 08/16/20 08/17/20 08/18/20 06:59 06:59 06:59 06:59 Intake Total 2710.450 / 2710.450 3303.332 / 3303.332 3114.167 / 3114.167 Output Total 960 / 960 782 / 782 1776 / 2576 800 / 800 Balance 1750.450 / 3168.296 0452.332 / 2521.332 1338.167 / 538.167 -800 / -800 Weight 93 kg 92.8 kg Laboratory Data (Last 24 Hr):: 08/17/20 06:55 Sodium 138 Potassium 3.9 D Chloride 105 Carbon Dioxide 29 BUN 19 H Creatinine 0.66 Glucose 133 H Calcium 8.3 L Phosphorus 3.2 Magnesium 1.9 Nutrition Assessment:: Please refer to the Notes section of the EMR for the most recent wreath inspector note. - Assessment * Labs WNL. * Significant change in K+; received 92meq K+ in TPN yesterday + 40meq via K+ riders. * Pt starting a clear liquid diet today - will not advance macros. * Pt continues with peripheral access only - Plan For day #3 of PN administration, the following will be ordered: Macronutrients Amino acids 90 grams/day Dextrose 150 grams/day Lipids 50 grams/day Micronutrients Sodium chloride 60 mEq Sodium acetate 60 mEq Potassium phosphate 15 mMol Potassium chloride 40 mEq Potassium acetate 30 mEq Magnesium sulfate 4.06 mEq Calcium gluconate 4.65 mEq Multivitamins 10 mL Trace Elements 1 mL Additional additives: * Thiamine 100mg * Folic Acid 1mg * Regular insulin 10 units Total volume 2400 mL to be infused over 24 hrs will provide 1370 kcal/day Final osmolarity 896.55 mOsm/L (maximum for PPN is 900 mOsm/L) Labs, as indicated, will be ordered per protocol Pharmacy will continue to follow and adjust parenteral nutrition orders on a daily basis. Thank you for allowing us to participate in the care of this patient.
--- NOTE | 2020-08-17 08:55 | Hospitalist Progress Note ---
Date of Service August 17, 2020 Assessment & Plan (1) Partial small bowel obstruction: Has history of cholecystectomy and hysterectomy No history of SBO before Admitted with abdominal pain and nausea noted to have small bowel obstruction on CAT scan Has been kept n.p.o., IV fluids and pain medications Overall condition has been improving for the last 2 to 3 days She has been moving her bowels and passing gas Bowel sounds are improving She on TPN Status post exploratory laparotomy and lysis of adhesions on 08/11/2020 We will continue NG tube suction as for now As above Mandy zuinga with RVR Developed atrial fibrillation Has been on IV Lopressor and intravenous heparin Received Cardizem drip and reverted to sinus rhythm We will monitor Back in sinus rhythm since day before yesterday Discontinue IV heparin and put her on heparin subcu Remains in sinus rhythm Possible intra-abdominal infection Noted to have high fever of 38.2 on of this month Associated tachycardia and leukocytosis supports possible abdominal infection She was started with intravenous Cipro and Flagyl No more fever and no chills and white count has been coming down We will continue current antibiotic Gout Noted to have acute gouty pain Was on oral colchicine Cannot take any NSAID's due to allergies We will try single dose of intravenous Solu-Medrol at 20 mg Can start oral colchicine as soon as she starts taking food orally We will try colchicine 0.3 mg twice daily through the NG tube-very reducing doses secondary to drug interaction with Cipro (2) COVID-19 virus infection: Is a status post first dose of Covid vaccine recently Noted to be Covid positive but does not have any symptoms Saturating normally on room air Denies any respiratory symptoms and saturating well on room air Has been on 3 L of nasal cannula oxygen following surgery Minimal cough but no other symptoms Has been saturating normally with room air and will not get any chest x-ray for now (3) Hypertension: Lopressor 5 mg every 6 hourly Hydralazine as needed, Nitropaste has been added We will add amlodipine 5 mg daily and continue IV Lopressor Blood pressure remains high Added amlodipine 5 mg daily (4) Manzo's esophagus: Continue PPI (5) Obstructive sleep apnea: No acute symptoms (6) Restless leg syndrome: Continue current medication DVT prophylaxis subcu heparin Labs checked ROS-No Headache, No Visual Changes, No Nausea, No Vomiting, No Fever, No Chills, No Neck Pain or Stiffness, No Chest Pain, No Palpitations, No SOB, No ALFREDO, No Cough, No Sputum, No Wheezing, No Abdominal Pain, No Diarrhea, No Hematemesis, No Hemoptysis, No Unexpected Weight Loss, No Flank pain, No Melena, No Hematochezia, No Frequency, No Urgency, No Burning, No Hematuria, No Rashes, No Diaphoresis. Appetite is Normal Physical Exam Gen-AAO x 3, mild distress, ill, Afebrile, +NGT Head-NCAT, EOMI, PERRLA, Anicteric Sclera, No Posterior Pharyngeal Erythema Neck-Supple, No JVD, No Thyromegaly, No Masses, No LAD, No Bruits Lungs-Clear to Auscultation Bilaterally, No Rales, No Rhonchi, No Wheezing, No Crepitus Chest-No S4, +S1, +S2, No S3, No Murmurs, No Rubs, No Gallops, No Ectopy Abdomen-Soft, Bowel Sounds Present, Mildly Tender, Distended, No Hepatomegaly, No Splenomegaly, No Palpable Masses, No Rebound, No Rigidity, No Guarding Musculoskeletal-Full Range of Motion Bilaterally, No CVAT Extremities-No Cyanosis, No Clubbing, No Edema Nuero-Cranial Nerves II-XII grossly intact, Motor WNL, DTRs WNL, Strength WNL, Non Focal Psych-Normal Mood Admission and Anticipated Discharge Date Admission Date: August 08, 2020 Subjective 08/09/2020 The patient was seen and examined in medical floor She was admitted yesterday with SBO and COVID-19 virus infection without any significant respiratory symptoms She required NG tube placement by surgery this morning Complains of abdominal pain without any nausea and/or vomiting 08/10/2020 The patient was seen and examined in medical floor She has more abdominal distention with pain and her bowel is not moved yet She will require to have NG suction as planned Denies any shortness of breath and has been saturating well with room air 08/11/2020 The patient was seen and examined in medical floor She is a status post exploratory laparotomy and lysis of adhesions She remains very drowsy and the pain seems to be reasonably controlled 08/12/2020 The patient was seen and examined in medical floor She is a status post exploratory laparotomy, POD #1 She complains of abdominal pain and right foot pain likely due to gout Denies any increase in shortness of breath Has not had any bowel movement or any passing of gas 08/13/2020 The patient was seen and examined in telemetry unit She is back to sinus rhythm since last night She was noted to have very high blood pressure of systolic 200 Complains Of Right Ankle Pain Likely Secondary to Gout Nitropaste was given and also received a dose of intravenous hydralazine Has not passed any gas and or bowel movement 08/14/2020 The patient was seen and examined in Covid unit She has been complaining of left ankle pain secondary to flareup of gout She has not moved her bowels or passed any gas Still remains n.p.o. 08/15/2020 The patient was seen and examined in Covid unit She has had bowel movement following suppository but he still has very sluggish sound The surgery service has put her on TPN Blood pressure remains elevated 08/16/2020 The patient was seen and examined in telemetry unit and in Covid room She feels better without any significant symptoms She has been moving her bowel and passing gas Denies any abdominal distention, nausea and/or vomiting Results & Data Results & Data ([facility]) Vital Signs (Past 12 Hours) Vital Signs Temp Pulse Pulse Resp BP BP BP 08/17/20 07:18 36.8 C 76 20 178/64 H 08/17/20 06:40 75 08/17/20 04:00 37.0 C 86 18 165/76 H 08/17/20 00:26 83 159/76 H 08/17/20 00:00 36.6 C 83 20 159/76 H Pulse Ox 08/17/20 07:18 94 08/17/20 06:40 08/17/20 04:00 92 08/17/20 00:26 08/17/20 00:00 94
[2020-08-17] MEDS: amLODIPine BESYLATE 5 MG TAB PO SCH (10:23)
[2020-08-17] MEDS: HYDROmorphone INJ 0.5 MG/0.5 ML SYR IV PRN ×2 (11:10→22:18)
[2020-08-17] MEDS ORDERED: Custom Peripheral Pn 2,400 ML in TPN BAG 0 ML IV SCH (16:00)
[2020-08-17] MEDS: cefTRIAXone SODIUM 2,000 MG in DEXTROSE 5% 50 ML IV SCH (17:47)
[2020-08-17] MEDS: AMITRIPTYLINE HCL 25 MG TAB PO SCH (20:01)
[2020-08-17] MEDS: PRAMIPEXOLE DIHYDROCHLO 0.5 MG TAB PO SCH (20:02)
[2020-08-18] MEDS: METOPROLOL TARTRATE 1 MG/ML VIAL IV SCH ×4 (01:00→18:12)
[2020-08-18] MEDS: metroNIDAZOLE 500 MG/100 ML BAG IV SCH ×3 (03:45→18:12)
[2020-08-18] MEDS: HYDROmorphone INJ 0.5 MG/0.5 ML SYR IV PRN ×2 (03:49→22:10)
--- NOTE | 2020-08-18 06:17 | Surgery Progress Note ---
Date of Service August 18, 2020 Assessment & Plan (1) H/O exploratory laparotomy: Patient having loose bowel movements Tolerating clear liquids Abdomen is flat and soft She does have some lower extremity swelling apparently we are going to try some Compression stockings We will advance her to full liquids Continue PPN today and into tomorrow Possible discharge home in 2 to 3 days depending on her mobility Admission and Anticipated Discharge Date Admission Date: August 08, 2020 Results & Data ([facility]) Vital Signs (Past 12 Hours) Vital Signs Temp Pulse Resp BP Pulse Ox 08/18/20 05:51 36.6 C 78 20 162/69 H 95 08/17/20 23:14 36.6 C 82 18 162/88 H 92 08/17/20 20:46 37.7 C H 174/74 H 08/17/20 19:43 37.8 C H 84 22 96 PG Care Time/CCT Total # of Minutes Spent Total Time Spent with Patient: Total time spent is greater than 50% in coordination of care (as documented) at patient's floor/unit and/or counseling patient: Coding Level of Care Code None Diagnoses H/O exploratory laparotomy Z98.890
[2020-08-18 07:56] LABS: Hematocrit (blood only) 31.5 % (37-47); Hemoglobin 10.7 g/dL (12.0-16.0); Mean Corpuscular Hemoglobin 31.5 pg (25-34); Mean Corpuscular Volume 92.6 fL (80-100); Mean Platelet Volume 10.3 fL (7.4-10.4); Platelet Count 236 K/uL (130-400); RDW Coefficient of Variation 13.7 % (11.5-14.5); RDW Standard Deviation 45.7 fL (36.4-46.3); White Blood Count 12.97 K/uL (4.8-10.8)
[2020-08-18] MEDS: COLCHICINE 0.6 MG TAB PO SCH ×2 (08:09→21:23)
[2020-08-18] MEDS: amLODIPine BESYLATE 5 MG TAB PO SCH (08:09)
[2020-08-18] MEDS: lisinopril 20 MG TAB PO SCH (08:10)
[2020-08-18] MEDS: PANTOprazole 40 MG in SYRINGE 0 ML IV SCH ×2 (08:10→21:21)
[2020-08-18] MEDS: HEPARIN SOD 5,000 UNIT/0.5 ML VIAL SQ SCH ×2 (08:10→21:24)
[2020-08-18] MEDS: buPROPion SR 150 MG TABCR PO SCH ×2 (08:12→21:24)
[2020-08-18 08:41] LABS: Calcium 8.4 mg/dl (8.5-10.1); Creatinine Clr Calc Pharmacy 85.4 ml/min; Est GFR (African American) 102.6; Est GFR (Non-African American) 88.5; Magnesium 1.9 mg/dl (1.8-2.4); Phosphorus 2.6 mg/dl (2.5-4.9)
--- NOTE | 2020-08-18 09:04 | Hospitalist Progress Note ---
Date of Service August 18, 2020 Assessment & Plan (1) Partial small bowel obstruction: Has history of cholecystectomy and hysterectomy No history of SBO before Admitted with abdominal pain and nausea noted to have small bowel obstruction on CAT scan Has been kept n.p.o., IV fluids and pain medications Overall condition has been improving for the last 2 to 3 days She has been moving her bowels and passing gas Bowel sounds are improving She's on TPN, ADAT today Status post exploratory laparotomy and lysis of adhesions on 08/11/2020 We will continue NG tube suction as for now As above Mandy zuniga with RVR Developed atrial fibrillation Has been on IV Lopressor and intravenous heparin Received Cardizem drip and reverted to sinus rhythm We will monitor Discontinue IV heparin and put her on heparin subcu Remains in sinus rhythm Possible intra-abdominal infection Noted to have high fever of 38.2 on of this month Associated tachycardia and leukocytosis supports possible abdominal infection She was started with intravenous Cipro and Flagyl No more fever and no chills and white count has been coming down We will continue current antibiotic Gout Noted to have acute gouty pain Was on oral colchicine Cannot take any NSAID's due to allergies Solu-Medrol at 20 mg x 1 Can start oral colchicine as soon as she starts taking food orally We will try colchicine 0.3 mg twice daily (2) COVID-19 virus infection: Is a status post first dose of Covid vaccine recently Noted to be Covid positive but does not have any symptoms Saturating normally on room air Denies any respiratory symptoms and saturating well on room air Has been on 3 L of nasal cannula oxygen following surgery Minimal cough but no other symptoms Has been saturating normally with room air and will not get any chest x-ray for now (3) Hypertension: Lopressor 5 mg every 6 hourly Hydralazine as needed, Nitropaste has been added We will add amlodipine 5 mg daily and continue IV Lopressor Blood pressure remains high Added amlodipine 5 mg daily (4) Manzo's esophagus: Continue PPI (5) Obstructive sleep apnea: No acute symptoms (6) Restless leg syndrome: Continue current medication DVT prophylaxis subcu heparin Labs checked Tolerated Clears ROS-No Headache, No Visual Changes, No Nausea, No Vomiting, No Fever, No Chills, No Neck Pain or Stiffness, No Chest Pain, No Palpitations, No SOB, No ALFREDO, No Cough, No Sputum, No Wheezing, No Abdominal Pain, No Diarrhea, No Hematemesis, No Hemoptysis, No Unexpected Weight Loss, No Flank pain, No Melena, No Hematochezia, No Frequency, No Urgency, No Burning, No Hematuria, No Rashes, No Diaphoresis. Appetite is Normal Physical Exam Gen-AAO x 3, NAD, Afebrile Head-NCAT, EOMI, PERRLA, Anicteric Sclera, No Posterior Pharyngeal Erythema Neck-Supple, No JVD, No Thyromegaly, No Masses, No LAD, No Bruits Lungs-Clear to Auscultation Bilaterally, No Rales, No Rhonchi, No Wheezing, No Crepitus Chest-No S4, +S1, +S2, No S3, No Murmurs, No Rubs, No Gallops, No Ectopy Abdomen-Soft, Bowel Sounds Present, Mildly Tender, Distended, No Hepatomegaly, No Splenomegaly, No Palpable Masses, No Rebound, No Rigidity, No Guarding Musculoskeletal-Full Range of Motion Bilaterally, No CVAT Extremities-No Cyanosis, No Clubbing, No Edema Nuero-Cranial Nerves II-XII grossly intact, Motor WNL, DTRs WNL, Strength WNL, Non Focal Psych-Normal Mood Admission and Anticipated Discharge Date Admission Date: August 08, 2020 Results & Data Results & Data ([facility]) Vital Signs (Past 12 Hours) Vital Signs Temp Pulse Pulse Resp BP Pulse Ox 08/18/20 07:36 37.0 C 81 18 169/81 H 96 08/18/20 05:51 36.6 C 78 20 162/69 H 95 08/17/20 23:14 36.6 C 82 18 162/88 H 92
--- NOTE | 2020-08-18 09:05 | Pharmacy Report ---
PHA: Parenteral Nutrition Con - Date of Service August 18, 2020 - Scope Pharmacy was consulted on 08/15/20 to manage parenteral nutrition orders for this patient. - Subjective The patient is currently on day # 4 of PERIPHERAL parenteral nutrition for SBO/PROLONGED NPO. - Objective Height: 5 ft 3 in Weight: 90.9 kg Diet: Full Liquid Intake & Output (24hrs):: Intake & Output 08/16/20 08/17/20 08/18/20 08/19/20 06:59 06:59 06:59 06:59 Intake Total 3303.332 / 3303.332 3114.167 / 3114.167 3940 / 3940 Output Total 782 / 782 1776 / 2576 3031 / 3031 500 / 500 Balance 2521.332 / 2521.332 1338.167 / 538.167 909 / 909 -500 / -500 Weight 92.8 kg 90.9 kg Laboratory Data (Last 24 Hr):: 08/18/20 06:59 Sodium 134 L Potassium 4.0 Chloride 101 Carbon Dioxide 27 BUN 18 Creatinine 0.60 Glucose 127 H Calcium 8.4 L Phosphorus 2.6 Magnesium 1.9 Nutrition Assessment:: Please refer to the Notes section of the EMR for the most recent ict sales representative note. - Assessment * Diet advanced to full liquids today. One more bag of PPN today and then DC tomorrow * Slightly taper macros since diet advanced * Adjust electrolytes per labs - Plan For day # 4 of PN administration, the following will be ordered: Macronutrients Amino acids 85 grams/day Dextrose 150 grams/day Lipids 40 grams/day Micronutrients Combined electrolytes 40 mL - contains 35 mEq Na, 20 meq K, 4.5 mEq Ca, 5 mEq Mg, 35 mEq Cl, 29.5 mEq acetate per 20 mL Sodium chloride 60 mEq Sodium acetate 20 mEq Potassium phosphate 30 mMol Multivitamins 10 mL Trace Elements 1 mL Additional additives: Thiamine 100mg + Folic Acid 1mg Total volume 2400 mL to be infused over 24 hrs will provide 1250 kcal/day Final osmolarity 893 mOsm/L (maximum for PPN is 900 mOsm/L) Labs, as indicated, will be ordered per protocol Pharmacy will continue to follow and adjust parenteral nutrition orders on a daily basis. Thank you for allowing us to participate in the care of this patient.
[2020-08-18] MEDS: INSULIN ASPART 100 UNITS/ML 3 ML PEN SC SCH ×4 (09:32→21:46)
[2020-08-18] MEDS: cloNIDine HCL 0.1 MG TAB PO SCH ×2 (10:46→21:23)
[2020-08-18] MEDS ORDERED: Custom Peripheral Pn 2,400 ML in TPN BAG 0 ML IV SCH (16:00)
[2020-08-18] MEDS: cefTRIAXone SODIUM 2,000 MG in DEXTROSE 5% 50 ML IV SCH (16:51)
[2020-08-18] MEDS: hydrALAZINE HCL 20 MG/ML VIAL IV PRN (19:45)
[2020-08-18] MEDS: AMITRIPTYLINE HCL 25 MG TAB PO SCH (21:24)
[2020-08-18] MEDS: PRAMIPEXOLE DIHYDROCHLO 0.5 MG TAB PO SCH (21:24)
[2020-08-19] MEDS: METOPROLOL TARTRATE 1 MG/ML VIAL IV SCH ×2 (01:00→06:41)
[2020-08-19] MEDS: metroNIDAZOLE 500 MG/100 ML BAG IV SCH ×3 (03:47→18:11)
[2020-08-19] MEDS: HYDROmorphone INJ 0.5 MG/0.5 ML SYR IV PRN (05:11)
[2020-08-19] MEDS ORDERED: HYDROCODONE/ACETAMOPHEN 5/325MG TAB PO PRN (05:35)
[2020-08-19] MEDS ORDERED: HYDROmorphone INJ 0.5 MG/0.5 ML SYR IV PRN (05:37)
--- NOTE | 2020-08-19 06:48 | Surgery Progress Note ---
Date of Service August 19, 2020 Assessment & Plan (1) H/O exploratory laparotomy: Main complaint is pain in her feet which is slightly improved She does receive IV Dilaudid Tolerating her diet Bowels are moving Abdomen is soft Advance to low fiber diet Stop TPN after current bag P.o. pain meds Continues to need help with mobility Admission and Anticipated Discharge Date Admission Date: August 08, 2020 Results & Data ([facility]) Vital Signs (Past 12 Hours) Vital Signs Temp Pulse Pulse Pulse Resp BP Pulse Ox 08/19/20 03:33 36.4 C L 76 18 151/68 H 95 08/19/20 00:00 66 08/18/20 22:48 36.5 C 75 19 137/62 94 08/18/20 21:01 173/61 H 08/18/20 19:24 37.2 C 75 20 192/78 H 96 PG Care Time/CCT Total # of Minutes Spent Total Time Spent with Patient: Total time spent is greater than 50% in coordination of care (as documented) at patient's floor/unit and/or counseling patient: Coding Level of Care Code None Diagnoses H/O exploratory laparotomy Z98.890
[2020-08-19] MEDS: cloNIDine HCL 0.1 MG TAB PO SCH (10:00)
[2020-08-19] MEDS: amLODIPine BESYLATE 5 MG TAB PO SCH (10:01)
[2020-08-19] MEDS: lisinopril 20 MG TAB PO SCH (10:01)
[2020-08-19] MEDS: COLCHICINE 0.6 MG TAB PO SCH ×2 (10:01→20:53)
[2020-08-19] MEDS: HYDROCODONE/ACETAMOPHEN 5/325MG TAB PO PRN ×2 (10:02→18:40)
[2020-08-19] MEDS: buPROPion SR 150 MG TABCR PO SCH ×2 (10:03→20:53)
[2020-08-19] MEDS: PANTOprazole 40 MG in SYRINGE 0 ML IV SCH ×2 (10:07→20:52)
[2020-08-19] MEDS: INSULIN ASPART 100 UNITS/ML 3 ML PEN SC SCH ×4 (10:13→20:39)
[2020-08-19] MEDS: HEPARIN SOD 5,000 UNIT/0.5 ML VIAL SQ SCH ×2 (10:14→20:53)
--- NOTE | 2020-08-19 10:54 | Hospitalist Progress Note ---
Date of Service August 19, 2020 Assessment & Plan (1) Partial small bowel obstruction: Has history of cholecystectomy and hysterectomy No history of SBO before Admitted with abdominal pain and nausea noted to have small bowel obstruction on CAT scan Has been kept n.p.o., IV fluids and pain medications Improving daily Stop TPN, ADAT Status post exploratory laparotomy and lysis of adhesions on 08/11/2020 A. fib with RVR Developed atrial fibrillation Has been on IV Lopressor and intravenous heparin Received Cardizem drip and reverted to sinus rhythm We will monitor Discontinue IV heparin and put her on heparin subcu Remains in sinus rhythm Possible intra-abdominal infection Noted to have high fever of 38.2 on of this month Associated tachycardia and leukocytosis supports possible abdominal infection She was started with intravenous Cipro and Flagyl No more fever and no chills and white count has been coming down We will continue current antibiotic Gout Noted to have acute gouty pain Was on oral colchicine Cannot take any NSAID's due to allergies Solu-Medrol at 20 mg x 1 Can start oral colchicine as soon as she starts taking food orally We will try colchicine 0.3 mg twice daily (2) COVID-19 virus infection: Is a status post first dose of Covid vaccine recently Noted to be Covid positive but does not have any symptoms Saturating normally on room air Denies any respiratory symptoms and saturating well on room air Has been on 3 L of nasal cannula oxygen following surgery Minimal cough but no other symptoms Has been saturating normally with room air (3) Hypertension: Amlodipine, Clonidine, Lisinopril. Metoprolol (4) Manzo's esophagus: Continue PPI (5) Obstructive sleep apnea: No acute symptoms (6) Restless leg syndrome: Continue current medication DVT prophylaxis subcu heparin Labs checked DC in next 1-2 days to [facility], PT/OT ordered ROS-No Headache, No Visual Changes, No Nausea, No Vomiting, No Fever, No Chills, No Neck Pain or Stiffness, No Chest Pain, No Palpitations, No SOB, No ALFREDO, No Cough, No Sputum, No Wheezing, No Abdominal Pain, No Diarrhea, No Hematemesis, No Hemoptysis, No Unexpected Weight Loss, No Flank pain, No Melena, No Hematochezia, No Frequency, No Urgency, No Burning, No Hematuria, No Rashes, No Diaphoresis. Appetite is Normal Physical Exam Gen-AAO x 3, NAD, Afebrile Head-NCAT, EOMI, PERRLA, Anicteric Sclera, No Posterior Pharyngeal Erythema Neck-Supple, No JVD, No Thyromegaly, No Masses, No LAD, No Bruits Lungs-Clear to Auscultation Bilaterally, No Rales, No Rhonchi, No Wheezing, No Crepitus Chest-No S4, +S1, +S2, No S3, No Murmurs, No Rubs, No Gallops, No Ectopy Abdomen-Soft, Bowel Sounds Present, Mildly Tender, Distended, No Hepatomegaly, No Splenomegaly, No Palpable Masses, No Rebound, No Rigidity, No Guarding Musculoskeletal-Full Range of Motion Bilaterally, No CVAT Extremities-No Cyanosis, No Clubbing, No Edema Nuero-Cranial Nerves II-XII grossly intact, Motor WNL, DTRs WNL, Strength WNL, Non Focal Psych-Normal Mood Admission and Anticipated Discharge Date Admission Date: August 08, 2020 Results & Data Results & Data ([facility]) Vital Signs (Past 12 Hours) Vital Signs Temp Pulse Pulse Pulse Resp BP Pulse Ox 08/19/20 07:49 36.7 C 72 20 159/64 H 97 08/19/20 03:33 36.4 C L 76 18 151/68 H 95 08/19/20 00:00 66
[2020-08-19] MEDS: METOPROLOL TARTRATE 25 MG TAB PO SCH ×2 (12:05→20:54)
[2020-08-19] MEDS ORDERED: ACETAMINOPHEN 500 MG TAB PO PRN (12:39)
[2020-08-19] MEDS: cefTRIAXone SODIUM 2,000 MG in DEXTROSE 5% 50 ML IV SCH (16:55)
[2020-08-19] MEDS: AMITRIPTYLINE HCL 25 MG TAB PO SCH (20:53)
[2020-08-19] MEDS: PRAMIPEXOLE DIHYDROCHLO 0.5 MG TAB PO SCH (20:53)
[2020-08-20] MEDS: metroNIDAZOLE 500 MG/100 ML BAG IV SCH ×2 (03:35→11:21)
[2020-08-20 07:49] LABS: Hematocrit (blood only) 33.5 % (37-47); Hemoglobin 11.2 g/dL (12.0-16.0); Mean Corpuscular Hemoglobin 31.3 pg (25-34); Mean Corpuscular Hgb Conc 33.4 g/dL (32-36); Mean Corpuscular Volume 93.6 fL (80-100); Mean Platelet Volume 10.3 fL (7.4-10.4); Platelet Count 251 K/uL (130-400); RDW Coefficient of Variation 13.9 % (11.5-14.5); RDW Standard Deviation 47.6 fL (36.4-46.3); Red Blood Count 3.58 M/uL (4.2-5.4); White Blood Count 10.35 K/uL (4.8-10.8)
[2020-08-20 08:25] LABS: BUN Creatinine Ratio 26.2 (10-20); Calcium 9.1 mg/dl (8.5-10.1); Creatinine Clr Calc Pharmacy 65.6 ml/min; Est GFR (African American) 86.9
[2020-08-20] MEDS: HEPARIN SOD 5,000 UNIT/0.5 ML VIAL SQ SCH (08:58)
[2020-08-20] MEDS: lisinopril 20 MG TAB PO SCH (08:58)
[2020-08-20] MEDS: buPROPion SR 150 MG TABCR PO SCH (08:58)
[2020-08-20] MEDS: PANTOprazole 40 MG in SYRINGE 0 ML IV SCH (08:58)
[2020-08-20] MEDS: COLCHICINE 0.6 MG TAB PO SCH (08:58)
[2020-08-20] MEDS: amLODIPine BESYLATE 5 MG TAB PO SCH (08:58)
[2020-08-20] MEDS: METOPROLOL TARTRATE 25 MG TAB PO SCH (08:58)
[2020-08-20] MEDS: INSULIN ASPART 100 UNITS/ML 3 ML PEN SC SCH ×2 (09:38→13:19)
[2020-08-20] MEDS: HYDROCODONE/ACETAMOPHEN 5/325MG TAB PO PRN ×2 (10:08→14:37)
--- NOTE | 2020-08-20 10:48 | Discharge Summary ---
Date of Service August 20, 2020 Admission HPI Per Admitting Provider 74-year-old female with past medical history significant for hyperlipidemia, chronic gout, prediabetes, seasonal allergies, obstructive sleep apnea, hypertension, fibromyalgia, restless legs syndrome, psoriasis, psoriatic arthropathy, history of peptic ulcer, history of Manzo's esophagus, depression, who presents from home with abdominal pain. The patient woke up around 1:30 a.m. with abdominal pain about 8/10 in severity, pain in the epigastric area radiating to the lower abdomen. No nausea, no vomiting. Last bowel movement was last Wednesday. Not passing much gas. Denies any chest pain, no shortness of breath. Has chronic dry cough, chronic runny nose. No sore throat, no dysphagia, no headache, no blurred vision, no fevers. She has complaints of pain in her left knee. She had left total knee arthroplasty done about 6 months ago and she also has pain in the right knee and supposed to get surgery in that knee and she ambulates with a cane at home. Still complaining of abdominal pain about 6/10 in severity. No bowel obstructions in the past, had abdominal surgeries in the past. Admission Exam Per Admitting Provider GENERAL: The patient is of moderate built, not in acute distress. VITAL SIGNS: Temperature 36.8, pulse 82, respiratory rate 16, blood pressure 132/75, oxygen 94% on room air. HEENT: Pupils equal, round, and reactive to light. Oral mucosa dry. NECK: No JVD, no neck masses seen. CARDIOVASCULAR: S1, S2 heard, regular rate and rhythm, no murmur, no gallop. RESPIRATORY SYSTEM: Normal AP diameter. No accessory muscle use. No wheezing, no crackles. ABDOMEN: Soft, bowel sounds absent, mild distention, diffuse discomfort and guarding. No rigidity. CENTRAL NERVOUS SYSTEM: Cranial nerves II-XII grossly intact. Nonfocal. EXTREMITIES: No edema, no erythema. Principal Diagnosis Small bowel obstruction: A. fib with RVR Gout COVID-19 virus infection: Hypertension: Manzo's esophagus: Obstructive sleep apnea: Restless leg syndrome: Discharge Exam See below Discharge Data Allergies Allergy/AdvReac Type Severity Reaction Status Date / Time indomethacin Allergy Mild rash Verified 08/08/20 05:26 meclizine Allergy Mild RASH Verified 08/08/20 05:26 naproxen Allergy Mild RASH Verified 08/08/20 05:26 Penicillins AdvReac Mild RASH Verified 08/08/20 05:26 Consultations 08/08/20 06:21 ED Decision to Admit Stat 08/08/20 10:17 Consult Case Management - Discharge Planning Routine Consult General Surgery Routine 08/12/20 14:51 Consult Cardiology Routine Procedures Performed Operation Date: 08/11/20 09:25 Actual Procedures p Exploratory Laparotomy, Lysis of Adhesions(Not Applicable) - Eamon Goodwin, Ordered Studies 08/08/20 04:50 CT abd pelvis IV con only Urgent Current Diagnoses Restless legs syndrome (08/08/20) Obstructive sleep apnea (adult) (pediatric) (08/08/20) Essential (primary) hypertension (08/08/20) Unspecified atrial fibrillation (08/08/20) Manzo's esophagus without dysplasia (08/08/20) Partial intestinal obstruction, unspecified as to cause (08/08/20) COVID-19 (08/08/20) Encounter for other preprocedural examination (08/08/20) Other specified postprocedural states (08/08/20) Allergies indomethacin Allergy (Mild, Verified 08/08/20 05:26) rash meclizine Allergy (Mild, Verified 08/08/20 05:26) RASH naproxen Allergy (Mild, Verified 08/08/20 05:26) RASH Penicillins Adverse Reaction (Mild, Verified 08/08/20 05:26) RASH Height/Weight/Isolation Height 5 ft 3 in Weight 88.6 kg Isolation Type COVID Precautions Chemistry 08/20/20 07:15 Sodium 134 L Potassium 4.0 Chloride 102 Carbon Dioxide 26 Anion Gap 6.0 BUN 20 H Creatinine 0.77 Glucose 90 Hospital Course (1) Partial small bowel obstruction: Has history of cholecystectomy and hysterectomy No history of SBO before Admitted with abdominal pain and nausea noted to have small bowel obstruction on CAT scan Has been kept n.p.o., IV fluids and pain medications Improving daily DC home, No PT/OT needs Status post exploratory laparotomy and lysis of adhesions on 08/11/2020 A. fib with RVR Remains in sinus rhythm Possible intra-abdominal infection DC on Omnicef and Flagyl for 5 more days Gout (2) COVID-19 virus infection: Is a status post first dose of Covid vaccine recently Noted to be Covid positive but does not have any symptoms Saturating normally on room air Denies any respiratory symptoms and saturating well on room air Has been on 3 L of nasal cannula oxygen following surgery Minimal cough but no other symptoms Has been saturating normally with room air (3) Hypertension: Amlodipine, Clonidine, Lisinopril. Metoprolol (4) Manzo's esophagus: Continue PPI (5) Obstructive sleep apnea: No acute symptoms (6) Restless leg syndrome: Continue current medication DVT prophylaxis subcu heparin Labs checked DC Home today ROS-No Headache, No Visual Changes, No Nausea, No Vomiting, No Fever, No Chills, No Neck Pain or Stiffness, No Chest Pain, No Palpitations, No SOB, No ALFREDO, No Cough, No Sputum, No Wheezing, No Abdominal Pain, No Diarrhea, No Hematemesis, No Hemoptysis, No Unexpected Weight Loss, No Flank pain, No Melena, No Hematochezia, No Frequency, No Urgency, No Burning, No Hematuria, No Rashes, No Diaphoresis. Appetite is Normal Physical Exam Gen-AAO x 3, NAD, Afebrile Head-NCAT, EOMI, PERRLA, Anicteric Sclera, No Posterior Pharyngeal Erythema Neck-Supple, No JVD, No Thyromegaly, No Masses, No LAD, No Bruits Lungs-Clear to Auscultation Bilaterally, No Rales, No Rhonchi, No Wheezing, No Crepitus Chest-No S4, +S1, +S2, No S3, No Murmurs, No Rubs, No Gallops, No Ectopy Abdomen-Soft, Bowel Sounds Present, Mildly Tender, Distended, No Hepatomegaly, No Splenomegaly, No Palpable Masses, No Rebound, No Rigidity, No Guarding Musculoskeletal-Full Range of Motion Bilaterally, No CVAT Extremities-No Cyanosis, No Clubbing, No Edema Nuero-Cranial Nerves II-XII grossly intact, Motor WNL, DTRs WNL, Strength WNL, Non Focal Psych-Normal Mood Total Time Total Time Spent Total Time Spent (In Minutes): 45 mins Total Time Includes: Examination of the Patient, Discharge Planning, Medication Reconciliation and Communication With Other Providers Discharge Plan Discharge Items Patient Disposition: Home - Self-Care Reason For Visit: ABDOMINAL PAIN Activity: Per Instructions section Lifting: No more than 10 pounds and Wait until after follow-up appointment Bathing: Keep incision dry Bathing Comment: may shower; no soaking in tubs/pools Sexual Activity: Wait until after follow-up appointment Exercise/Sports: Wait until after follow-up appointment Driving/Machine Use: do not resume driving while taking narcotics for pain Weightbearing: Full weightbearing Non-emergency contact: Primary Care Provider and Surgeon Call non-emergency contact if: you have any medication questions, your symptoms worsen, your pain is not controlled, your pain is worsening, your pain is concerning for you, you have a fever, your temperature is above 101.5, your wound has increased redness, your wound has increased drainage and your wound pain has increased Follow-up/Referrals: Eamon Goodwin DO [Physician] - (Please call to schedule follow up in clinic within 1-2 weeks) Carolynn Francis MD [Primary Care Provider] - Diet: Low Fiber Addtl Attending Provider Instructions: None Pending Studies at Discharge: No Stand-Alone Forms: My [facility] [employer], Smoking Cessation Medications and DC Order Prescriptions: New amlodipine [Norvasc] 5 mg Tablet 5 mg PO QAM Qty: 30 RF: 0 metoprolol tartrate 25 mg Tablet 25 mg PO BID Qty: 60 RF: 0 acetaminophen 500 mg Tablet 500 mg PO Q4H PRN (Reason: fever or pain) Qty: 90 RF: 0 hydrocodone-acetaminophen 5-325 mg Tablet 1 tab PO Q4HWA PRN (Reason: pain) Qty: 60 RF: 0 cefdinir 300 mg capsule 300 mg PO BID 5 Days Qty: 10 RF: 0 metronidazole [Flagyl] 500 mg tablet 500 mg PO BID 5 Days Qty: 10 RF: 0 Continued multivitamin Tablet 1 tab PO QAM RF: 0 bupropion HCl 150 mg tablet sustained-release 12 hr 150 mg PO BID RF: 0 atorvastatin 80 mg tablet 80 mg PO QPM RF: 0 tizanidine 4 mg tablet 4 mg PO DIRECTED PRN (Reason: NEEDED) RF: 0 lisinopril 20 mg tablet 20 mg PO QAM RF: 0 tramadol 50 mg tablet 50 mg PO BID RF: 0 amitriptyline 25 mg tablet 25 mg PO HS RF: 0 pantoprazole 40 mg tablet,delayed release (DR/EC) 40 mg PO BID RF: 0 pramipexole 0.25 mg tablet 0.5 mg PO HS RF: 0 Humira Pen 40 mg/0.8 mL Pen Injector Kit 40 mg SUBCUT .Q2WK RF: 0 Discharge Orders: Discharge Order (Routine); Ordered 08/20/20 Ordered By: Caleb Zabala/Other Patient Handouts: Prediabetes, 5 Steps for Eating Healthier, A1C Admission Data Admit Date/Time: 08/08/20 06:49 Attending Provider: Caleb Metz Admit Provider: Tom Antonio Primary Care Provider: Carolynn Francis Other Providers: Tom Antonio ; Raz Perez ; Cynthia Saenz ; Susan Adams ; Trey Gutierrez ; Nixon Gonzales ; Alejandrina Tellez ; Jessica Alicea ; Bridger Cotter Jr ; Bj Wahl ; Valdo Ramírez ; Zainab Hinojosa ; Parvez Corbett
--- NOTE | 2020-08-20 14:01 | Surgery Progress Note ---
Date of Service August 20, 2020 Assessment & Plan (1) H/O exploratory laparotomy: POD 9 ex lap for closed loop ok for d/c home skin jesús removed can f/u in clinic in a few weeks Admission and Anticipated Discharge Date Admission Date: August 08, 2020 Subjective tolerating low fiber diet although not much appetite Physical Exam Gastrointestinal (Abdomen): Inspection/Auscultation: + abdominal surgical incision (healing well); abdomen not distended Percussion/Palpation: abdomen soft Results & Data ([facility]) Vital Signs (Past 12 Hours) Vital Signs Temp Pulse Pulse Pulse Resp BP BP 08/20/20 11:30 36.8 C 70 64 18 151/58 H 143/62 H 08/20/20 11:11 36.8 C 70 18 151/58 H 08/20/20 10:16 08/20/20 07:40 36.8 C 76 18 152/65 H 08/20/20 07:00 61 08/20/20 03:06 36.6 C 64 17 139/59 L Pulse Ox Pulse Ox 08/20/20 11:30 99 08/20/20 11:11 99 08/20/20 10:16 95 08/20/20 07:40 97 08/20/20 07:00 08/20/20 03:06 92 PG Care Time/CCT Total # of Minutes Spent Total Time Spent with Patient: Total time spent is greater than 50% in coordination of care (as documented) at patient's floor/unit and/or counseling patient: Coding Level of Care Code None Diagnoses H/O exploratory laparotomy Z98.890
--- NOTE | 2020-08-22 13:53 | Coding Query ---
CODING QUERY To promote full compliance with coding requirements relating to patient care, provider participation is requested in all cases of clinic physician director uncertainty. Please assist us with the question(s) below: Coding Question(s): Discharge Summary and progress after surgery (08/11) document possible intraabdominal infection for which patient was discharged on 5 days of Ominicef and Flagyl. Please check below the phrase below that describes the intra- abdominal infection. Thanks for your help! MORENA Alcaraz [facility] Physician's Response(s): The intra-abdominal infection is a complication of the Surgery The intra-abdominal infection is not a complication of the Surgery ___xxx____ Cannot Determine if the intra-abdominal infection is a complication of the Surgery Other: Please document: Principal Diagnosis: "that condition established after study, to be chiefly responsible for occasioning the admission of the patient to the hospital for care." Co-Existing Principal Diagnosis: "when two or more diagnoses equally meet the criteria for principal diagnosis as determined by the circumstances of admission, diagnostic work up, and/or therapy provided, and the Alphabetic Index, Tabular List, or another coding guideline does not provide sequencing direction, any one of the diagnoses may be sequenced first." "When the physician has documented what appears to be a current diagnosis in the body of the record, but has not included the diagnosis in the final diagnostic statement, the physician should be asked whether the diagnosis should be added." (Source Coding Clinic 2 QTR90. p3-4) EDMOND
== END 2020-08-20 14:45 | disposition home health service (06) | DRG 335 ==
LOC: ED 04:19 → 3W 06:49 → SUATTDRO 06:49 → 3W 09:59 → 2S 08-12 14:22

== ENCOUNTER 2022-04-15 08:30 | Observation (INO) ==
--- NOTE | 2022-04-06 16:27 | PAT Medication Instructions ---
Medication Instructions Date of Service April 06, 2022 Home Medications Medication Instructions Recorded amlodipine 5 mg tablet (Norvasc) 5 mg PO QAM #30 tabs 08/20/20 metoprolol tartrate 25 mg tablet 25 mg PO BID #60 tabs 08/20/20 adalimumab 40 mg/0.8 mL subcutaneous pen kit (Humira Pen) 40 mg subcut Q14D amitriptyline 25 mg tablet 25 mg PO HS atorvastatin 80 mg tablet 80 mg PO HS bupropion HCl 150 mg tablet,12 hr sustained-release 150 mg PO BID lisinopril 20 mg tablet 20 mg PO QAM multivitamin 1 tab PO QAM pantoprazole 40 mg tablet,delayed release 40 mg PO BID pramipexole 0.25 mg tablet 0.5 mg PO HS tizanidine 4 mg tablet 4 mg PO UD PRN amlodipine 5 mg tablet (Norvasc) 5 mg PO QAM metoprolol tartrate 25 mg tablet 25 mg PO BID hydrocodone 5 mg-acetaminophen 325 mg tablet 1 tab PO Q12H PRN levothyroxine 75 mcg capsule 75 mcg PO QAM loratadine 10 mg tablet (Claritin) 10 mg PO QAM PRN ASK your prescriber and surgeon adalimumab 40 mg/0.8 mL subcutaneous pen kit (Humira Pen) 40 mg subcut Q14D amitriptyline 25 mg tablet 25 mg PO HS DO NOT take the morning of surgery lisinopril 20 mg tablet 20 mg PO QAM multivitamin 1 tab PO QAM tizanidine 4 mg tablet 4 mg PO UD PRN loratadine 10 mg tablet (Claritin) 10 mg PO QAM PRN Take morning of surgery With a small sip of water, OTHERWISE NOTHING TO EAT OR DRINK AFTER MIDNIGHT: bupropion HCl 150 mg tablet,12 hr sustained-release 150 mg PO BID pantoprazole 40 mg tablet,delayed release 40 mg PO BID amlodipine 5 mg tablet (Norvasc) 5 mg PO QAM metoprolol tartrate 25 mg tablet 25 mg PO BID hydrocodone 5 mg-acetaminophen 325 mg tablet 1 tab PO Q12H PRN(if needed) levothyroxine 75 mcg capsule 75 mcg PO QAM Take evening before surgery atorvastatin 80 mg tablet 80 mg PO HS bupropion HCl 150 mg tablet,12 hr sustained-release 150 mg PO BID pantoprazole 40 mg tablet,delayed release 40 mg PO BID pramipexole 0.25 mg tablet 0.5 mg PO HS metoprolol tartrate 25 mg tablet 25 mg PO BID hydrocodone 5 mg-acetaminophen 325 mg tablet 1 tab PO Q12H PRN(if needed) Other Notes If you have any questions please call us at [phone] or [phone] or [phone] or [phone]
--- NOTE | 2022-04-07 13:40 | Anesthesiology Consultation ---
Date of Service April 07, 2022 Assessment & Plan (1) Encounter for pre-operative examination: - awaiting PCP response regarding ongoing work-up for suspicious pulmonary nodule. - Pt concerns with neuraxial anesthesia: Pt expresses anxiety regarding neura xial anesthesia. We discussed neuraxial and general anesthesia. She plans to further discuss this with anesthesiologist alo JUNE. Outpatient joint assessment: Patient is currently scheduled for inpatient pathway. If re-evaluated pending system levels during current pandemic/surgeon requests outpatient pathway, patient is not acceptable candidate for outpatient joint program from anesthesia standpoint. Chart Review Chart Review: Pending: Refer to Additional Notes / Consult section and Patient seen in Pre Admission Testing Teaching & Discussion Pre-Anesthesia Teaching/Discussion Notes: Instructed NPO after midnight before surgery, except medications with 15 cc of water. Medication instructions provided according to the PAT guidelines. History Surgery Operation Date: 04/15/22 09:05 Proposed Procedures p Right Total Knee Arthroplasty - Trey Santillan MD Height/Weight Height: 5 ft 3.5 in Weight: 82.554 kg Allergies Allergy/AdvReac Type Severity Reaction Status Date / Time indomethacin Allergy Mild rash Verified 04/06/22 11:57 meclizine Allergy Mild RASH Verified 04/06/22 11:57 naproxen Allergy Mild RASH Verified 04/06/22 11:57 Penicillins AdvReac Mild RASH Verified 04/06/22 11:57 Medications Home Medications Medication Instructions Recorded Confirmed Last Taken adalimumab 40 mg/0.8 mL 40 mg subcut Q14D 08/08/20 04/06/22 08/01/20 subcutaneous pen kit (Humira Pen) amitriptyline 25 mg tablet 25 mg PO HS 08/08/20 04/06/22 08/07/20 atorvastatin 80 mg tablet 80 mg PO HS 08/08/20 04/06/22 08/07/20 bupropion HCl 150 mg tablet,12 hr 150 mg PO BID 08/08/20 04/06/22 08/07/20 sustained-release lisinopril 20 mg tablet 20 mg PO QAM 08/08/20 04/06/22 08/07/20 multivitamin 1 tab PO QAM 08/08/20 04/06/22 08/07/20 pantoprazole 40 mg tablet,delayed 40 mg PO BID 08/08/20 04/06/22 08/07/20 release pramipexole 0.25 mg tablet 0.5 mg PO HS 08/08/20 04/06/22 08/07/20 tizanidine 4 mg tablet 4 mg PO UD PRN muscle relaxant 08/08/20 04/06/22 Unknown amlodipine 5 mg tablet (Norvasc) 5 mg PO QAM #30 tabs 08/20/20 04/06/22 Unknown hydrocodone 5 mg-acetaminophen 325 1 tab PO Q12H PRN pain 04/06/22 04/06/22 Unknown mg tablet levothyroxine 75 mcg capsule 75 mcg PO QAM 04/06/22 04/06/22 Unknown loratadine 10 mg tablet (Claritin) 10 mg PO QAM PRN allergies 04/06/22 04/06/22 Unknown Adult Probiotic PO DAILY 04/07/22 Unknown Allergy Relief (fluticasone) intranasal 04/07/22 Unknown allopurinol 300 mg tablet mg DAILY 04/07/22 Unknown aspirin 81 mg capsule mg 04/07/22 Unknown calcipotriene topical 04/07/22 Unknown ketoconazole topical 04/07/22 Unknown oxycodone-acetaminophen PRN Pain 04/07/22 Unknown propranolol 60 mg PO DAILY 04/07/22 04/07/22 Unknown tacrolimus topical BID 04/07/22 Unknown Past Medical History Medical History (Updated 04/07/22 @ 14:02 by Giana Britt PA-C) Anxiety and depression Manzo's esophagus CKD (chronic kidney disease) stage 3, GFR 30-59 ml/min GERD (gastroesophageal reflux disease) controlled, stable per pt History of COVID-19 07/2020, admitted to hospital w/bowel obstruction, given pcr test; no symptoms-only tested because of admission to hospital Hx of renal calculi Hyperlipemia Hypertension controlled, stable per pt Hypothyroidism Obstructive sleep apnea tested years ago, does not use cpap "can't use it, took it back" Pulmonary nodule Restless leg syndrome Type 2 diabetes mellitus diet controlled Patient denies h/o stroke, seizures, heart attack, heart failure, blood clots or blood transfusions. Exercise / Class Metabolic Activity III < 4 Walking/Shop/Light housework (denies CP or SOB With usual activities, ambulates with cane) Past Surgical History Surgical History (Updated 04/07/22 @ 13:43 by Giana Britt PA-C) H/O exploratory laparotomy (08/11/20) Exploratory Laparotomy, Lysis of Adhesions 08/11/20- Eamon Goodwin, DO History of esophagogastroduodenoscopy (EGD) w/dilation x3 History of total left hip replacement History of total left knee replacement (TKR) Hx laparoscopic cholecystectomy Hx of cataract extraction bilat. Hx of colonoscopy Hx of lithotripsy Hx of shoulder surgery left Hx of total hysterectomy with removal of both tubes and ovaries Past Anesthesia History No Hx of Anesthesia Complications and No Family Hx of Anesthesia Complications History of PONV No Hx of PONV and No Hx of Motion Sickness Social History Smoking Status: Never smoker Do You Dip or Chew Tobacco: No Hx Alcohol Use: Yes alcohol intake frequency: holidays/special occasions only Hx Substance Use: No substance use type: does not use Review of Systems Patient denies chest pain, shortness of breath, dyspnea on exertion, fever, chills, cough, wheezing, or palpitations. Physical Exam Vital Signs Vitals BP 138/71 P 61 TEMP 98.5 SP02 95% on RA RESP 18 Physical Full cervical extension range of motion without pain TMD 3.5 finger breadths Mallampati Score 2 Dentition: intact, denies chipped or loose teeth, caps/crowns, implants or bridges Lungs: normal respiratory effort. Clear throughout to auscultation, no adventitious breath sounds Cardiac: regular rate and rhythm, no murmurs noted Carotid arteries: negative bruit bilat Lab Results Anesthesia Preop Results Results Anesthesia Widget: WBC 8.22 K/ul (4.8-10.8) 04/07/22 Hgb 12.2 g/dl (12.0-16.0) 04/07/22 Hct 35.9 % (34.1-44.9) 04/07/22 Plt 119 K/uL (130-400) L 04/07/22 Na 140 mmol/L (136-145) 04/07/22 K 4.0 mmol/L (3.5-5.1) 04/07/22 Cl 106 mmol/L (98-107) 04/07/22 CO2 29 mmol/L (21-32) 04/07/22 BUN 18 mg/dl (6-23) 04/07/22 Creat 0.84 mg/dl (0.6-1.2) 04/07/22 Glucose Level 106 mg/dl (70-99(Fasting)) H 04/07/22 PT 11.0 Seconds (9.0-12.0) 04/07/22 PTT 26.9 Seconds (21.0-31.0) 04/07/22 INR 1.0 (0.9-1.1) 04/07/22 Blood Type O Positive 04/07/22 Antibody Screen NEGATIVE 04/07/22 Testing Electrocardiogram Date: 04/07/22 NSR, rate 64 bpm Chest X-Ray Date: 04/07/22 No pneumothorax. No pleural effusions. The lungs are clear. The heart is normal in size. Distal resorption/resection of the right clavicle is noted. Old, healed left-sided rib fracture, unchanged. Prior cholecystectomy. Degenerative changes again noted within the thoracic spine. IMPRESSION: No acute process within the chest. Echocardiogram Date: 09/23/20 EF 60-64% Grade I diastolic dysfunction Moderate cLVH Normal LV wall motion No significant valvular disease No evidence of pulmonary hypertension Trivial circumferential pericardial effusion Other Testing Chest CT 03/11/22 Enlarging pulmonary nodule in RLL. 1.1 x 0.56 cm and previously measures 0.7 x 0.3 cm. Considered a highly suspicious nodule Numerous bilateral pulmonary nodules, several nodules have shown minimal interval increase in size Bilateral fibrotic and subpleural interstitial changes COVID-19 Risk Screen Screening Information COVID-19 Screen Date: 04/07/22 Exposure 21 Days Family/Household +COVID Last 21 Days: No Exposure 10 Days Any COVID Exposure Last 10 Days: No Symptoms Last 10 Days Experienced COVID Sx Last 10 Days: No + COVID 0-90 Days COVID + in Last 0-90 Days: No
--- NOTE | 2022-04-07 14:08 | PAT Medication Instructions ---
Medication Instructions Date of Service April 07, 2022 Home Medications Medication Instructions Recorded amlodipine 5 mg tablet (Norvasc) 5 mg PO QAM #30 tabs 08/20/20 adalimumab 40 mg/0.8 mL subcutaneous pen kit (Humira Pen) 40 mg subcut Q14D amitriptyline 25 mg tablet 25 mg PO HS atorvastatin 80 mg tablet 80 mg PO HS bupropion HCl 150 mg tablet,12 hr sustained-release 150 mg PO BID lisinopril 20 mg tablet 20 mg PO QAM multivitamin 1 tab PO QAM pantoprazole 40 mg tablet,delayed release 40 mg PO BID pramipexole 0.25 mg tablet 0.5 mg PO HS tizanidine 4 mg tablet 4 mg PO UD PRN amlodipine 5 mg tablet (Norvasc) 5 mg PO QAM hydrocodone 5 mg-acetaminophen 325 mg tablet 1 tab PO Q12H PRN levothyroxine 75 mcg capsule 75 mcg PO QAM loratadine 10 mg tablet (Claritin) 10 mg PO QAM PRN Adult Probiotic PO DAILY Allergy Relief (fluticasone) intranasal allopurinol 300 mg tablet mg DAILY aspirin 81 mg capsule mg calcipotriene topical ketoconazole topical oxycodone-acetaminophen PRN propranolol 60 mg PO DAILY tacrolimus topical BID Continue as directed propranolol 60 mg PO DAILY Allergy Relief (fluticasone) intranasal allopurinol 300 mg tablet mg DAILY aspirin 81 mg capsule mg (unless directed otherwise by surgeon) oxycodone-acetaminophen PRN(if needed) ASK your prescriber and surgeon adalimumab 40 mg/0.8 mL subcutaneous pen kit (Humira Pen) 40 mg subcut Q14D amitriptyline 25 mg tablet 25 mg PO HS STOP taking 24 hours before surgery calcipotriene topical ketoconazole topical tacrolimus topical BID DO NOT take the morning of surgery lisinopril 20 mg tablet 20 mg PO QAM multivitamin 1 tab PO QAM tizanidine 4 mg tablet 4 mg PO UD PRN loratadine 10 mg tablet (Claritin) 10 mg PO QAM PRN Adult Probiotic PO DAILY Take morning of surgery With a small sip of water, OTHERWISE NOTHING TO EAT OR DRINK AFTER MIDNIGHT: bupropion HCl 150 mg tablet,12 hr sustained-release 150 mg PO BID pantoprazole 40 mg tablet,delayed release 40 mg PO BID amlodipine 5 mg tablet (Norvasc) 5 mg PO QAM hydrocodone 5 mg-acetaminophen 325 mg tablet 1 tab PO Q12H PRN(if needed) levothyroxine 75 mcg capsule 75 mcg PO QAM Take evening before surgery atorvastatin 80 mg tablet 80 mg PO HS bupropion HCl 150 mg tablet,12 hr sustained-release 150 mg PO BID pantoprazole 40 mg tablet,delayed release 40 mg PO BID pramipexole 0.25 mg tablet 0.5 mg PO HS hydrocodone 5 mg-acetaminophen 325 mg tablet 1 tab PO Q12H PRN(if needed) Other Notes If you have any questions please call us at [phone] or [phone] or [phone] or [phone]
[~2022-04-15 08:30] MED LIST changes: -500ML BSS 0.3ML EPI 1:1000PF IRRIG ONE; -ACETAMINOPHEN 325 MG TAB PO PRN; +ACETAMINOPHEN 500 MG TAB PO SCH; -AMIT25TA9 PO; -AMVISC PLUS 0.8ML SYRINGE INT OCU ONE; -ATOR-24 PO; -BRIMONIDINE TART 0.2% OP SOLN PER DROP CHARGE ONE; -BSS FLUSH ONE; +BUPIVACAINE 0.5 % 5 MG/1 ML PF 10ML VIAL ONE; +BUPIVACAINE LIPOSOME/PF 266 MG, BUPIVACAINE/EPINEPHRINE 50 ML, SODIUM CHLORIDE 0.9% 30 ... INFIL SCH; -BUPR-79 PO; -CLB/200 PO; +CeleBREX 200 MG CAP PO SCH; -ENDOCOAT 0.85ML SYRINGE INT OCU ONE; -EpINEphrine INJ 1MG/ML AMP 1 MG/ML AMP ONE; +FAMOTIDINE 20 MG TAB PO SCH; -LACTATED RINGER'S 1000ML 500 ML IV SCH; -LIDOCAINE 4% OP SOLN DROP CHARGE ONE; -LIDOCAINE 4% OP SOLN DROP CHARGE OPL SCH; -LIDOCAINE HCL 1% MPF 2 ML VIAL ONE; -LISI10TA PO; +LR 500ML BOLUS, THEN 15ML/HR IV SCH; +LR 60ML/HR IV SCH; +METOCLOPRAMIDE HCL 10 MG TABLET PO SCH; -MIDAZOLAM HCL 1 MG/ML 2ML VIAL ONE; -MIX: 3ML BSS AND 1ML EPI(PF) TOP ONE; -MOXIFLOXACIN OPH SOLN PER DROP CHARGE ONE; -MULT-506 PO; -PANT40TA PO; -POVIDONE-IODINE OP SOLN 30 ML BTL ONE; -PROPARACAINE 0.5% OP SOLN PER DROP CHARGE OPL SCH; +ROPIVACAINE 0.5% 5 MG/ML 30 ML VIAL ONE; -TOBRAMYCIN/DEXAMETHASONE OPH OINT PER APPLN CHARGE ONE; -TRAM-10 PO; +TRANEXAMIC ACID 1,000 MG **IV Intra-op IV SCH; +ceFAZolin 2000MG 2,000 MG/15 ML SYR IV SCH
--- NOTE | 2022-04-15 09:13 | History & Physical Bridge Note ---
Date of Service April 15, 2022 History & Physical Bridge Note I have examined the patient, reviewed the History & Physical and in the interval since the performance of the History & Physical I have noted the following changes of clinical significance: no changes noted
[2022-04-15] MEDS ORDERED: MIDAZOLAM HCL 1 MG/ML 2ML VIAL ONE (09:48)
[2022-04-15] MEDS ORDERED: ceFAZolin 2,000 MG/15 ML IV PUSH IV ONE (09:54)
[2022-04-15] MEDS ORDERED: CeleBREX 200 MG CAP ONE (09:54)
[2022-04-15] MEDS ORDERED: Nursing to Pharmacy Communication SCH (10:00)
[2022-04-15] MEDS ORDERED: MoRPHine SULFATE 10 MG/ML CARP/VIAL IV PRN (10:07)
[2022-04-15] MEDS ORDERED: ONDANSETRON INJ 2 MG/ML 2 ML VIAL IV PRN ×2 (10:07→15:03)
[2022-04-15] MEDS ORDERED: ATROPINE SULFATE 0.1 MG/ML 10ML SYR IV PRN (10:07)
[2022-04-15] MEDS ORDERED: MEPERIDINE HCL 25 MG/ML CARP/VIAL IV PRN (10:07)
[2022-04-15] MEDS ORDERED: ePHEDrine sulfate 50 MG/ML AMP IV PRN (10:07)
[2022-04-15] MEDS ORDERED: DEXAMETHASONE SOD INJ 4 MG/ML VIAL ONE (10:24)
[2022-04-15] MEDS ORDERED: PROPOFOL IV EMULSION 10 MG/ML 20 ML VIAL IV ONE (10:24)
[2022-04-15] MEDS ORDERED: ONDANSETRON INJ 2 MG/ML 2 ML VIAL ONE (10:24)
[2022-04-15] MEDS ORDERED: fentaNYL citrate 100 MCG/2 ML VIAL ONE ×2 (10:25→12:19)
[2022-04-15] MEDS ORDERED: SODIUM CHLORIDE 0.9% PF 50 ML VIAL ONE (11:23)
[2022-04-15] MEDS ORDERED: BUPIVACAINE/EPINEPHRINE 0.25% 1:200,000 30 ML VIAL ONE (11:23)
[2022-04-15] MEDS ORDERED: BUPIVACAINE LIPOSOME 1.3% 266 MG/20 ML VIAL ONE (11:24)
[2022-04-15] MEDS ORDERED: KETAMINE 50 MG/5 ML SYRINGE ONE (11:51)
[2022-04-15] MEDS ORDERED: LABETALOL HCL IV 5 MG/ML 20ML IV ONE (12:32)
--- NOTE | 2022-04-15 13:54 | Operative Report ---
PG Post Operative Report Pre & Post Diagnosis Operation Date: 04/15/22 10:55 Pre-Op Diagnosis: Right Knee Degenerative Joint Disease Post-Op Diagnosis: Right Knee Degenerative Joint Disease I identified the patient and participated in the time-out.: Yes Procedure Operation Date: 04/15/22 10:55 Actual Procedures p Right Total Knee Arthroplasty(Right) - Trey Santillan MD Surgeon Trey Santillan MD Operations Supervisor [employer] Raman Chamberlain PA-C Estimated Blood Loss 50 Findings Consistent with Post-Op Diagnosis Operative findings revealed advanced right knee tricompartment DJD. She had grade 4 [id number] disease in all 3 compartments most severe in the medial side. Fluids 300 cc Specimens Right knee sent for pathology Drains None Anesthesia Type General Complications none Disposition Accompanied Patient To Recovery: No Indications Patient is 76-year-old female who has a long history of intermittent and progressive orthopedic a joint problems. She underwent a left hip and left knee replacement done at [facility] about the 2 years ago. She did well from the hip but struggled from the knee. She is continue to have persistent progressive right knee pain discomfort. She been through extensive conservative treatment which was not managing her symptoms. X-rays show right knee tricompartment DJD. She elected proceed with surgical treatment. Description of Procedure Operative implants consist of: 1. Biomet Vanguard size 62.5 right posterior stabilized femoral component. 2. Biomet size 67 tibial tray. 3. 10 mm posterior stabilized polyethylene insert. 4. 31 x 8 all Paller patella. The patient was taken the operating, identified, placed on the operating table supine position protectors were properly padded. IV antibiotics tried by anesthesia team. A general anesthetic was implemented by anesthesia team. Abductor canal block had been provided in the holding area. A Gardner catheter was placed in sterile fashion. A right thigh tent was then placed for the right lower extremities then prepped and draped in usual sterile fashion. The right leg was elevated exsanguinated with use of an Esmarch in terms playset 300 mmHg. An anterior approach of the right knee was then performed through a longitudinal incision centered over the patella. Sharp dissection was carried through subcutaneous tissue down the extensor mechanism. Medial parapatellar incision was then made. Subperiosteal dissection was carried out medially. The fat pad was dissected from Neath patella tendon. Lateral patellofemoral ligament was released. Patella subluxated laterally knee was flexed. The osteophytes taken off distal femur. The ACL and PCL were then released from distal femur the tibia subluxated anteriorly. The external tibial alignment jig was then placed in the interface the tibia and adjusted 14 mm medially. Proximal tibial cut was made to remove about 2 to 3 mm of bone from the medial side. The tibia was then sized to a size 67. Attention drawn the femur. The distal femur stem with a sharp drill. Intramedullary canal was suction. A right 5 degree valgus cutting guide was placed. Distal femoral cutting block was pinned in place. Distal femoral cut was made to take an additional 3 mm of bone off distal femur. The femur was then sized to a size 62.5. The AP cutting block was pinned parallel to the epicondylar axis which was 3 degrees of external rotation. Anterior cut, anterior chamfer, posterior cut, posterior chamfer cuts were made. The box cutting guide was placed in just slight lateral and the box cut was made. The knee was flexed. The remnants of the medial and lateral menisci were excised. The osteophytes were taken off the posterior aspect of femur. A trial femoral component was placed. The tibial tray was pinned in maximum external rotation and the drill and stem punch were used to create defect in proximal tibia for the tibial tray. The knee was then trialed and the 10 mm insert fit most appropriately. Attention drawn to the patella. Of the patella was cleaned of all soft tissues. Patella thickness measured 21 mm in thickness and was cut down to a 13. Was sized to a size 31 patella. The lug holes were drilled for the 31 patella. The lateral osteophyte was removed. Patella button was placed. Knee was taken through range of motion patella tracked nicely with no thumbs test. Attention drawn to placing permanent components. Nupathe all trial components were removed. Bone plug was placed in the distal femur limit blood loss. Double batch Palacos G cement was mixed. A Biomet Vanguard size 62.5 right posterior stabilized femoral component, a size 67 tibial tray, 10 mm posterior stabilized polyethylene insert, and a 31 x 8 all Paller patella then cemented in place. Knee was brought out in full extension total cement hardened. Final cement check was then performed. Pericapsular tissues were injected with total 100 cc of combination of 20 cc of Exparel, 30 cc normal saline, 50 cc of quarter percent Marcaine with epinephrine. Patient did receive 1 g tranexamic acid. The tourniquet was let down for final tourniquet time 54 minutes. Hemostasis reduced electrocautery. Extensor mechanism closed with combination 1 PDS suture and #1 Vicryl suture in [id number] fashion. Extensor mechanism was checked and found to be intact the subcutaneous tissue then closed with 2 Dexon suture in buried interrupted fashion skin was closed skin jesús. Leg was then cleaned and dried a sterile dressing was Xeroform, 4 x 4's, sterile cast padding, Reggie bandage were applied. Patient was then brought out of general anesthesia and transferred to the recovery room in stable condition. Patient tolerated the procedure well and there are no complications. Raman Chamberlain, my physician podiatry assistant, was present for the entire procedure. His assistance was essential and required for appropriate patient positioning, prepping and draping, surgical exposure, performing the technical details of the operation, placement the implants, closure of the wound, and placement of the sterile bandage. I attest to the content of the Intraoperative Record and any orders documented therein. Any exceptions are noted below.
[2022-04-15] MEDS: fentaNYL citrate 100 MCG/2 ML VIAL IV PRN ×4 (14:13→14:28)
--- NOTE | 2022-04-15 14:33 | XRay Report ---
XR knee RT 1 or 2V routine CLINICAL HISTORY: Surgical Post Op TECHNIQUE: 2 views of the right knee were obtained. Comparison: Comparison is made to knee radiographs 04/03/2022 FINDINGS: Patient is status post total knee arthroplasty with expected postsurgical changes including soft tiss ue swelling and subcutaneous emphysema. No periarticular lucency or hardware fracture is seen. Vascul ar calcifications are seen. IMPRESSION: Expected postoperative appearance status post placement of total knee arthroplasty. ACT 112: Negative or not required by law. Electronically signed by: Braulio Garcia M.D. 04/15/2022 2:32 PM
--- NOTE | 2022-04-15 14:45 | Anesthesiology Progress Note ---
Date of Service April 15, 2022 Anesthesia Post Procedure Vital Signs Vital Signs: Temp Pulse Resp BP Pulse Ox O2 Del Method O2 Flow Rate 04/15/22 14:39 36.4 C L 04/15/22 14:30 63 16 165/57 H 95 Nasal Cannula 3 04/15/22 14:20 62 18 147/66 H 95 Nasal Cannula 3 04/15/22 14:10 62 18 157/69 H 98 Nasal Cannula 3 04/15/22 14:00 67 18 181/62 H 98 Room Air 04/15/22 13:50 65 18 166/66 H 98 Oxymask 5 04/15/22 13:40 36.4 C L 69 18 187/72 H 96 Oxymask 5 04/15/22 09:00 37 C 63 18 170/83 H 95 Room Air Pain Intensity Bilateral Knee: Pain Intensity: 7 Transfer of Care Handoff Completed per policy Notes Mental Status: alert / awake / arousable Patient Amnestic to Procedure: Yes Nausea / Vomiting: adequately controlled Pain: adequately controlled Airway Patency, RR, SpO2: stable & adequate BP & HR: stable & adequate Hydration State: stable & adequate Anesthetic Complications: no major complications apparent and Pt Satisfied with anesthetic care
[2022-04-15] MEDS ORDERED: METOCLOPRAMIDE HCL INJ 5 MG/ML 2 ML VIAL IV PRN (15:03)
[2022-04-15] MEDS ORDERED: HYDROmorphone INJ 0.5 MG/0.5 ML SYR IV PRN (15:03)
[2022-04-15] MEDS ORDERED: GLUCAGON FOR INJ 1 MG VIAL SQ PRN (15:03)
[2022-04-15] MEDS ORDERED: PHARMACY GLYCEMIC MGMT CONSULT PRN (15:03)
[2022-04-15] MEDS ORDERED: DEXTROSE 50% 50 ML SYRINGE IV PRN (15:03)
[2022-04-15] MEDS ORDERED: CARBOHYDRATES FOR HYPOGLYCEMIA PO PRN (15:03)
[2022-04-15] MEDS ORDERED: bisacodyL 10 MG SUPP PR PRN (15:03)
[2022-04-15] MEDS ORDERED: NALOXONE HCL 0.4 MG/1 ML VIAL/CARP IV PRN (15:03)
[2022-04-15] MEDS ORDERED: ALUMINUM/MAGNESIUM SUSP 30 ML UDC PO PRN (15:03)
[2022-04-15] MEDS ORDERED: MAGNESIUM HYDROXIDE SUSP 30 ML UDC PO PRN (15:03)
[2022-04-15] MEDS ORDERED: GLUCOSE 10 TAB/TUBE PO PRN (15:03)
[2022-04-15] MEDS ORDERED: tiZANidine HCL 4 MG TABLET PO PRN (15:03)
[2022-04-15] MEDS ORDERED: LORATADINE 10 MG TAB PO PRN (15:03)
[2022-04-15] MEDS ORDERED: GLUCOSE 40% GEL 15 GM TUBE PO PRN (15:03)
[2022-04-15] MEDS: SODIUM CHLORIDE 0.9% 1000ML 1,000 ML IV SCH (15:30)
[2022-04-15] MEDS ORDERED: FLUTICASONE PROPIONATE NA SPR 16 GM BTL PRN (15:51)
[2022-04-15] MEDS ORDERED: ONDANSETRON 4 MG OD TAB PO PRN (15:53)
[2022-04-15] MEDS: KETOROLAC TROMETHAMINE 15 MG/ML VIAL IV SCH ×2 (16:29→22:08)
[2022-04-15] MEDS: ACETAMINOPHEN 500 MG TAB PO SCH ×2 (16:29→22:08)
[2022-04-15] MEDS: ASCORBIC ACID 500 MG TAB PO SCH (16:59)
[2022-04-15] MEDS: KETOROLAC TROMETHAMINE 10 MG TABLET PO SCH ×2 (16:59→23:18)
[2022-04-15] MEDS: oxyCODONE HCL IR 5 MG TAB (IMMEDIATE RELEASE) PO PRN ×2 (17:04→23:18)
[2022-04-15] MEDS ORDERED: TRANEXAMIC ACID / 0.7% NACL 1,000 MG/100 ML BAG IV SCH (19:45)
[2022-04-15] MEDS: ceFAZolin 2000MG 2,000 MG/15 ML SYR IV SCH (20:22)
[2022-04-15] MEDS: ATORVASTATIN 40 MG TAB PO SCH (20:24)
[2022-04-15] MEDS: DOCUSATE SODIUM 100 MG CAP PO SCH (20:24)
[2022-04-15] MEDS: buPROPion SR 150 MG TABCR PO SCH (20:24)
[2022-04-15] MEDS: AMITRIPTYLINE HCL 25 MG TAB PO SCH (20:24)
[2022-04-15] MEDS: PANTOprazole 40 MG TAB PO SCH (20:24)
[2022-04-15] MEDS: SENNA 8.6 MG TAB PO SCH (20:24)
[2022-04-15] MEDS: ASPIRIN 81 MG ECTAB PO SCH (20:25)
[2022-04-15] MEDS: PRAMIPEXOLE DIHYDROCHLO 0.5 MG TAB PO SCH (20:26)
[2022-04-15] MEDS: INSULIN ASPART PER UNIT SC SCH (22:08)
[2022-04-16] MEDS: SODIUM CHLORIDE 0.9% 1000ML 1,000 ML IV SCH (02:00)
[2022-04-16] MEDS: KETOROLAC TROMETHAMINE 15 MG/ML VIAL IV SCH ×4 (02:50→22:12)
[2022-04-16] MEDS: ceFAZolin 2000MG 2,000 MG/15 ML SYR IV SCH (02:51)
[2022-04-16] MEDS: ACETAMINOPHEN 500 MG TAB PO SCH ×3 (05:58→22:08)
[2022-04-16] MEDS: LEVOTHYROXINE SODIUM 75 MCG TABLET PO SCH (05:59)
[2022-04-16] MEDS: KETOROLAC TROMETHAMINE 10 MG TABLET PO SCH ×4 (05:59→23:39)
[2022-04-16 06:58] LABS: Calcium 8.1 mg/dl (8.5-10.1); Creatinine Clr Calc Pharmacy 45.2 ml/min; Est GFR (African American) 58.9 ml/min; Est GFR (Non-African American) 50.8 ml/min; Potassium 4.3 mmol/L (3.5-5.1)
[2022-04-16 07:27] LABS: Hematocrit (blood only) 30.1 % (34.1-44.9); Hemoglobin 10.3 g/dl (12.0-16.0); Mean Corpuscular Hemoglobin 33.6 pg (25.0-34.0); Mean Corpuscular Hgb Conc 34.2 g/dL (32.0-36.0); Mean Platelet Volume 11.8 fL (9.4-12.3); Platelet Count 117 K/uL (130-400); RDW Coefficient of Variation 13.2 % (11.5-14.5); RDW Standard Deviation 46.7 fL (36.4-46.3); Red Blood Count 3.07 M/uL (3.93-5.22); White Blood Count 11.41 K/ul (4.8-10.8)
[2022-04-16] MEDS: buPROPion SR 150 MG TABCR PO SCH ×2 (07:50→22:08)
[2022-04-16] MEDS: ADVANCED PROBIOTIC 1250 MG CAPSULE PO SCH (07:50)
[2022-04-16] MEDS: DOCUSATE SODIUM 100 MG CAP PO SCH ×2 (07:50→21:51)
[2022-04-16] MEDS: MULTIVITAMIN TAB PO SCH ×3 (07:50→07:52)
[2022-04-16] MEDS: ASPIRIN 81 MG ECTAB PO SCH ×2 (07:50→22:06)
[2022-04-16] MEDS: DOCUSATE SODIUM/SENNA 50/8.6MG TAB PO SCH (07:51)
[2022-04-16] MEDS: ASCORBIC ACID 500 MG TAB PO SCH ×2 (07:51→17:38)
[2022-04-16] MEDS: allopurinoL 300 MG TAB PO SCH (07:51)
[2022-04-16] MEDS: lisinopril 20 MG TAB PO SCH (07:51)
[2022-04-16] MEDS: PANTOprazole 40 MG TAB PO SCH ×2 (07:53→22:06)
[2022-04-16] MEDS: PROPRANOLOL HCL 20 MG TAB PO SCH (08:22)
[2022-04-16] MEDS: amLODIPine BESYLATE 5 MG TAB PO SCH (08:22)
[2022-04-16] MEDS: INSULIN ASPART PER UNIT SC SCH ×4 (09:14→22:38)
--- NOTE | 2022-04-16 10:06 | Progress Notes ---
DATE OF SERVICE: 04/16/2022. SUBJECTIVE: A 76-year-old female, postoperative day 1 from a right knee replacement. She is doing p retty well. A little bit lightheaded when she first got up. No chest pain or shortness of breath. Pain is reasonably well controlled. OBJECTIVE: VITAL SIGNS: Temperature 36.5. Vital signs are stable. GENERAL: Shows a pleasant elderly female. She is doing well, walking to the bathroom with a walker without any difficulty this morning. Doing quite well. LUNGS: Clear to auscultation. HEART: Regular rate and rhythm. ABDOMEN: Soft, nontender, nondistended. EXTREMITIES: Grossly neurovascularly intact except as follows. Examination of the right leg reveals the dressing is clean, dry and intact. She can dorsiflex and plantarflex her foot appropriately. NEUROLOGIC: She is neurologically intact. LABORATORY DATA: Hemoglobin 10.3. Hematocrit 30.1. Electrolytes are stable. ASSESSMENT: A 76-year-old female, postoperative day 1 from right knee replacement, doing reasonably well. A little lightheaded when she first got up, which is not unusual. Her pain is otherwise prett y well controlled. She is neurologically intact. Hemoglobin stable. PLAN: 1. DVT prophylaxis including thigh-high TEDs, SCDs, and aspirin twice a day. 2. PT/OT. She can weight bear as tolerated. Right total knee protocol. 3. Pain control, doing okay with current pain regimen. 4. Disposition: Plan to discharge to home with some home health once adequately recovered. We will see how therapy goes today. Job ID: [id number]
--- NOTE | 2022-04-16 15:24 | Pharmacy Report ---
Pharmacy Glycemic Short Note 2 - Date of Service April 16, 2022 - Glycemic Short BSG Results (Last 24 hours): 04/15/22 04/15/22 04/16/22 17:35 20:38 05:44 Glucose 133 H POC Glucose 263 H 187 H 04/16/22 04/16/22 08:25 12:15 Glucose POC Glucose 149 H 118 H OUTPATIENT ANTIDIABETIC REGIMEN: * None - diet controlled * HbA1c = 6.4% (08/09/21 ASSESSMENT: * 76 yo F admitted postoperatively following a right total knee arthroplasty. Pharmacy has been consulted to assist with inpatient glycemic management. Patient has a history of prediabetes which is diet controlled at home. Ordered and tolerating a type 2 diet. Did receive 4 mg of IV dexamethasone intraoperatively. No further steroids ordered. * Fasting BSG this AM was 149 mg/dL. Lunchtime was 184 mg/dL. * No basal at this time. Continue with Novolog based on weight/stress of 2. PLAN FOR INPATIENT GLYCEMIC CONTROL: * Basal insulin * None * Bolus insulin * NovoLog per scale ACHS or Q6hrs while NPO * Goal Range: Low 110 mg/dL - High 140 mg/dL * Correction Factor: 30 mg/dL/unit * Nutritional / Prandial insulin per carb ratio of 1 unit per 9 grams CHO consumed
[2022-04-16] MEDS: oxyCODONE HCL IR 5 MG TAB (IMMEDIATE RELEASE) PO PRN (20:10)
[2022-04-16] MEDS: SENNA 8.6 MG TAB PO SCH (22:03)
[2022-04-16] MEDS: PRAMIPEXOLE DIHYDROCHLO 0.5 MG TAB PO SCH (22:06)
[2022-04-16] MEDS: ATORVASTATIN 40 MG TAB PO SCH (22:07)
[2022-04-16] MEDS: AMITRIPTYLINE HCL 25 MG TAB PO SCH (22:07)
[2022-04-17] MEDS: KETOROLAC TROMETHAMINE 15 MG/ML VIAL IV SCH ×2 (04:02→08:55)
[2022-04-17] MEDS: LEVOTHYROXINE SODIUM 75 MCG TABLET PO SCH (06:15)
[2022-04-17] MEDS: ACETAMINOPHEN 500 MG TAB PO SCH ×2 (06:15→13:40)
[2022-04-17] MEDS: KETOROLAC TROMETHAMINE 10 MG TABLET PO SCH ×2 (06:16→12:46)
[2022-04-17] MEDS: oxyCODONE HCL IR 5 MG TAB (IMMEDIATE RELEASE) PO PRN (07:33)
[2022-04-17] MEDS: ASPIRIN 81 MG ECTAB PO SCH (07:34)
[2022-04-17] MEDS: amLODIPine BESYLATE 5 MG TAB PO SCH (07:34)
[2022-04-17] MEDS: buPROPion SR 150 MG TABCR PO SCH (07:34)
[2022-04-17] MEDS: PANTOprazole 40 MG TAB PO SCH (07:34)
[2022-04-17] MEDS: allopurinoL 300 MG TAB PO SCH (07:35)
[2022-04-17] MEDS: lisinopril 20 MG TAB PO SCH (07:35)
[2022-04-17] MEDS: PROPRANOLOL HCL 20 MG TAB PO SCH (07:35)
[2022-04-17] MEDS: MULTIVITAMIN TAB PO SCH ×2 (07:35→07:36)
[2022-04-17] MEDS: ASCORBIC ACID 500 MG TAB PO SCH (07:35)
[2022-04-17] MEDS: DOCUSATE SODIUM/SENNA 50/8.6MG TAB PO SCH (07:36)
[2022-04-17] MEDS: ADVANCED PROBIOTIC 1250 MG CAPSULE PO SCH (07:36)
[2022-04-17] MEDS: DOCUSATE SODIUM 100 MG CAP PO SCH (07:36)
[2022-04-17 07:52] LABS: Estimated Average Glucose 140 mg/dl; Hemoglobin A1C 6.5 % (4.5-5.6)
--- NOTE | 2022-04-17 08:43 | Progress Notes ---
SUBJECTIVE: A 76-year-old white female postoperative day 2 from a right knee replacement. She is do ing okay. Her therapy went okay. Having a moderate amount of pain. No chest pain or shortness of b reath. Not feeling dizzy or lightheaded. OBJECTIVE: VITAL SIGNS: Temperature 36.8. Vital signs are stable. GENERAL: Shows a pleasant elderly female. She is sitting up in bed and looks reasonably comfortable this morning. LUNGS: Clear to auscultation. HEART: Regular rate and rhythm. ABDOMEN: Soft, nontender, and nondistended. EXTREMITIES: Grossly neurovascularly intact except as follows. Examination of the right leg reveals the dressing in place. Just a trace bit of bloody drainage infe riorly. Mild swelling. She can dorsiflex and plantarflex her foot appropriately. She is neurologic ally intact. ASSESSMENT: A 76-year-old white female postoperative day 2 from her right knee replacement, doing pr darwin well. Pain is reasonably well controlled. She is neurologically intact. PLAN: 1. DVT prophylaxis including thigh-high TEDs, SCDs, and aspirin twice a day. 2. PT/OT, weightbear as tolerated. Right total knee protocol. 3. Pain control, doing okay with current pain regimen. 4. Disposition: Plan to discharge to home with some home health after therapy today if she does oka y. Job ID: [id number]
[2022-04-17] MEDS: INSULIN ASPART PER UNIT SC SCH ×2 (08:55→12:46)
--- NOTE | 2022-04-17 09:35 | Pharmacy Report ---
Pharmacy Glycemic Sign Off Nt - Date of Service April 17, 2022 - Assessment & Plan ASSESSMENT: * Pharmacy was consulted by Dr. Santillan on 04/15/22 for glycemic control and to write orders per [facility] inpatient glycemic control protocol. * Major changes made by pharmacy to antidiabetic regimen include: * Started Novolog sliding scale insulin * Patient has been requiring ~10 units of insulin per day for adequate glycemic control * BSGs ranging 113-187 mg/dl * Regimen has required no adjustments * Do not anticipate further changes in patient status that would quickly deteriorate glycemic control (i.e. patient to be NPO for upcoming procedure, steroids tapering, starting tube feedings, etc). * Please see recommendations for outpatient antidiabetic regimen below. PLAN FOR INPATIENT GLYCEMIC CONTROL: No changes needed to current regimen. * No basal insulin necessary * Continue NovoLog per scale ACHS/Q6hrs while NPO * Goal range = 110-140 mg/dl * CF = 30 mg/dl/unit * CR = 1 unit for ever 9 g CHO consumed DISCHARGE RECOMMENDATIONS: * Consider starting metformin 500 mg ER once daily with dinner. Continue to titrate metformin dosing upwards as recommended. Dosage increases should be made in increments of 500 mg weekly, up to 2,000 mg/day PO, given in divided doses. Doses above 2000 mg/day may be better tolerated if divided and given 3 times per day with meals. Max: 2,550 mg/day PO, in divided doses. B12 supplementation may be necessary with fdc metformin. * Pharmacy is signing off of glycemic consult and will no longer be making adjustments to inpatient regimen. Please feel free to re-consult if needed. Thank you.
--- NOTE | 2022-04-23 08:15 | Discharge Summary ---
Date of Service April 23, 2022 Discharge Data Procedures Performed Operation Date: 04/15/22 10:55 Actual Procedures p Right Total Knee Arthroplasty(Right) - Trey Santillan MD Hospital Course (1) Status post total right knee replacement: This is a 76 year old patient admitted on 04/15/22 and underwent total knee arthroplasty. She tolerated the procedure well and there were no complications. Transferred to the PACU post op and later to the orthopedic floor for further care. She was given ancef for antibiotic prophylaxis. She was also given MASSIMO stockings, SCDs, and aspirin for DVT prophylaxis. Hemoglobin, hematocrit, and vital signs were monitored during her hospital stay and remained stable. Did not require any blood transfusions. There were no complications during her hospital stay. By post op day #2 the patient was tolerating a diabetic diet, pain was reasonably controlled with oral pain medicine, and she was participating in physical therapy. On post op day #2 the patient was discharged home and set up with home health care. She was given printed discharge instructions including prescriptions for extra strength tylenol, aspirin, cefadroxil, ketorolac, zofran, senokot, and oxycodone. Continue physical therapy, weight bearing as tolerated. Continue MASSIMO stockings. Follow up approximately 2 weeks post op or sooner if there are problems or concerns. Coding Level of Care Code None Diagnoses Status post total right knee replacement Z96.651
== END 2022-04-17 14:24 | disposition home health service (06) ==
LOC: 3W 08:30 → ASU 08:30